=== PATIENT | female | born 1955 | race Caucasian/White ===

== ENCOUNTER 2020-05-06 09:16 | Outpatient (REF) | payer MEDICAID, SELFPAY ==
--- NOTE | ~2020-05-06 | MM_ITS ---
EXAMINATION: MM SCREENING DIGITAL BREAST TOMOSYNTHESIS, BILATERAL CLINICAL INFORMATION: Screening. Asymptomatic. The lifetime risk of breast cancer based on the Tyrer-Cuzick Model is 3%. COMPARISON: Mammography: 03/19/2019, 10/30/2017, 09/25/2016 TECHNIQUE: Digital breast tomosynthesis is performed in both the craniocaudal and mediolateral oblique views along with computer-aided detection (CAD). Synthesized 2D images are generated from the tomosynthesis. FINDINGS: There are scattered areas of fibroglandular density (ACR BI-RADS breast composition Category b). There are no significant masses, abnormal calcifications, or other abnormalities. There are punctate grouped dermal calcifications again noted posterior 6:30 o'clock left breast. MM/MM tomosynthesis screening BI IMPRESSION: No mammographic evidence of malignancy. ASSESSMENT: BI-RADS 2: Benign RECOMMENDATION: Routine annual mammography screening. This patient's information was entered into a reminder system with a target due date for their next mammogram.
== END 2020-05-06 09:17 | disposition home or self-care (01) ==
LOC: HO.MAMMO 09:16
PROVIDERS: Visit Provider Pediatrics
DX: Z12.31 Encounter for screening mammogram for malignant neoplasm of breast (principal)
CPT/HCPCS: 77063; 77067

== ENCOUNTER 2021-05-09 08:59 | Outpatient (REF) | payer MEDICAID, SELFPAY ==
--- NOTE | ~2021-05-09 | MM_ITS ---
EXAMINATION: MM SCREENING DIGITAL BREAST TOMOSYNTHESIS, BILATERAL CLINICAL INFORMATION: Screening. Asymptomatic. The lifetime risk of breast cancer based on the Tyrer-Cuzick Model is 5%. COMPARISON: Mammography: 05/06/2020, 03/19/2019, 10/30/2017 TECHNIQUE: Digital breast tomosynthesis is performed in both the craniocaudal and mediolateral oblique views along with computer-aided detection (CAD). Synthesized 2D images are generated from the tomosynthesis. Additional right MLO view is provided. FINDINGS: There are scattered areas of fibroglandular density (ACR BI-RADS breast composition Category b). The right breast has a circumscribed nodule posterior 9:00 position 8-9 cm from nipple measuring just under 5 mm, representing change from prior studies. Patient will be recalled for additional characterization with targeted ultrasound. The remainder of the breasts show no significant mass or architectural abnormality or abnormal calcifications. There are grouped dermal calcifications again seen posterior 6:30 left breast. MM/MM tomosynthesis screening BI IMPRESSION: 1. Right: Circumscribed nodule posterior 9:00 position just under 5 mm, possibly a cyst. 2. Left: No mammographic evidence of malignancy. ASSESSMENT: BI-RADS 0: Incomplete - Need Additional Imaging Evaluation RECOMMENDATION: 1. Targeted ultrasound right breast. 2. Radiology department staff will contact the patient for additional imaging. This patient's information was entered into a reminder system with a target due date for their next mammogram.
== END 2021-05-09 09:00 | disposition home or self-care (01) ==
LOC: HO.MAMMO 08:59
PROVIDERS: PCP Pediatrics; Visit Provider Pediatrics
DX: Z12.31 Encounter for screening mammogram for malignant neoplasm of breast (principal)
CPT/HCPCS: 77063; 77067

== ENCOUNTER 2021-05-14 13:01 | Outpatient (REF) | payer MEDICAID, SELFPAY ==
--- NOTE | ~2021-05-14 | US_ITS ---
EXAMINATION: US DIAGNOSTIC ULTRASOUND BREAST, RIGHT CLINICAL INFORMATION: Recall from screening for circumscribed nodule posterior 9:00 position under 5 mm, possibly a cyst. COMPARISON: Mammography 05/09/2021, 05/06/2020, 03/19/2019. TECHNIQUE: Ultrasound right breast is targeted to the outer breast using grayscale imaging and color Doppler without and with harmonics. FINDINGS: There is a circumscribed anechoic nodule 9:00 position 6 cm from nipple measuring under 5 mm. There is no increased or decreased through transmission of sound and no associated color flow. This likely represents finding on mammography. Results are discussed with the patient at time of visit, using an diplomatic interpreter. Management plan is for short interval follow-up right mammography in 6 months. Ultrasound may be performed as needed at that visit. US/US breast RT limited IMPRESSION: Circumscribed avascular anechoic nodule under 5 mm 9:00 position. No posterior acoustic enhancement. ASSESSMENT: BI-RADS 3: Probably Benign RECOMMENDATION: Diagnostic right mammography in 6 months. This patient's information was entered into a reminder system with a target due date for their next mammogram.
== END 2021-05-14 13:02 | disposition home or self-care (01) ==
LOC: HO.MAMMO 13:01
PROVIDERS: PCP Pediatrics; Visit Provider Pediatrics
DX: N63.15 Unspecified lump in the right breast, overlapping quadrants (principal)
CPT/HCPCS: 76642

== ENCOUNTER 2021-08-30 | Outpatient (REF) | payer MEDICAID, SELFPAY ==
[2021-09-01 14:11] LABS: H Pylori Breath Test Negative (Negative)
== END 2021-08-30 00:01 | disposition home or self-care (01) ==
LOC: HO.LNP
PROVIDERS: Visit Provider Nurse Practitioner Family
DX: K59.04 Chronic idiopathic constipation (principal); K21.9 Gastro-esophageal reflux disease without esophagitis; R19.7 Diarrhea, unspecified; E55.9 Vitamin D deficiency, unspecified; Z11.0 Encounter for screening for intestinal infectious diseases
CPT/HCPCS: 83013; 99202

== ENCOUNTER 2021-08-31 11:20 | Outpatient (REF) | payer MEDICAID, SELFPAY | END 2021-08-31 11:21 | disposition home or self-care (01) | LOC: HO.LNP 11:20 | PROVIDERS: Visit Provider Nurse Practitioner Family | DX: Z13.89 Encounter for screening for other disorder (principal) ==

== ENCOUNTER 2021-12-06 13:41 | Outpatient (REF) | payer MEDICAID, SELFPAY ==
--- NOTE | ~2021-12-06 | MM_ITS ---
EXAMINATION: MM DIAGNOSTIC DIGITAL BREAST TOMOSYNTHESIS, RIGHT US DIAGNOSTIC ULTRASOUND BREAST, RIGHT CLINICAL INFORMATION: Short interval six-month follow-up probable benign circumscribed nodule posterior 9:00 right breast. TC score 5%. COMPARISON: Mammography: 05/09/2021, 05/06/2020, 03/19/2019 TECHNIQUE: Digital breast tomosynthesis is performed in both the craniocaudal and mediolateral oblique views along with computer-aided detection (CAD). Synthesized 2D images are generated from the tomosynthesis. Ultrasound right breast is targeted to the outer breast using grayscale imaging and color Doppler without and with harmonics. FINDINGS: There are scattered areas of fibroglandular density (ACR BI-RADS breast composition Category b). Circumscribed nodule posterior 9:00 position again demonstrated. No spiculation or significant change in size. Remainder of right breast is unremarkable. No significant changes from prior diagnostic exam. Ultrasound demonstrates an incidental intramammary node posterior 9:00 position 8 cm from nipple measuring 0.5 cm. This shows normal sravan architecture and color flow and may represent the finding on mammography. There is also a 0.4 cm circumscribed cystic nodule 9:00 position in this area with increased through-transmission of sound and no color flow. No suspicious finding on ultrasound. Results are discussed with the patient at time of visit. MM/MM tomosynthesis diagnostic RT IMPRESSION: -Benign-appearing nodule posterior 9:00 position, without significant change from prior diagnostic exam. -Ultrasound shows benign intramammary node near this area as well as a small cyst. ASSESSMENT: BI-RADS 3: Probably Benign RECOMMENDATION: Diagnostic mammography at time of annual bilateral mammography, due in in 6 months. This patient's information was entered into a reminder system with a target due date for their next mammogram.
== END 2021-12-06 13:42 | disposition home or self-care (01) ==
LOC: HO.MAMMO 13:41
PROVIDERS: Visit Provider Pediatrics
DX: N63.15 Unspecified lump in the right breast, overlapping quadrants (principal)
CPT/HCPCS: 76642; 77061; 77065

== ENCOUNTER 2022-07-02 13:52 | Outpatient (REF) | payer OTHER, MEDICAID, SELFPAY ==
--- NOTE | ~2022-07-02 | MM_ITS ---
EXAMINATION: MM DIAGNOSTIC DIGITAL BREAST TOMOSYNTHESIS, BILATERAL CLINICAL INFORMATION: Due for yearly. Also follow-up probable benign circumscribed nodule posterior 9:00 right breast. Intramammary node and a small cyst noted on prior ultrasound. TC score 4%. COMPARISON: Mammography: 12/06/2021, 05/09/2021 (BI-RADS humeral 0), 05/06/2020, 03/19/2019; ultrasound right breast 05/14/2021, 09/05/2021. TECHNIQUE: Digital breast tomosynthesis is performed in both the craniocaudal and mediolateral oblique views along with computer-aided detection (CAD). Synthesized 2D images are generated from the tomosynthesis. FINDINGS: There are scattered areas of fibroglandular density (ACR BI-RADS breast composition Category b). There is no developing density or interval mass or architectural abnormality or abnormal calcifications. The circumscribed nodule posterior 9:00 right breast is similar to prior exam and will be reassessed again in 6 months with diagnostic right mammography, ultrasound if warranted at that time. The left breast again has tightly grouped dermal calcifications posterior 6:00 position. The bilateral axilla and skin contours are unremarkable. Results are provided to the patient at time of visit by the technologist. MM/MM tomosynthesis diagnostic BI IMPRESSION: Right: -Benign-appearing circumscribed nodule posterior 9:00 position stable from prior exam. Left: -No mammographic evidence of malignancy. ASSESSMENT: BI-RADS 3: Probably Benign RECOMMENDATION: Diagnostic right mammography in 6 months. This patient's information was entered into a reminder system with a target due date for their next mammogram.
== END 2022-07-02 13:53 | disposition home or self-care (01) ==
LOC: HO.MAMMO 13:52
PROVIDERS: PCP Pediatrics; Visit Provider Pediatrics
DX: N63.15 Unspecified lump in the right breast, overlapping quadrants (principal)
CPT/HCPCS: 77062; 77066

== ENCOUNTER 2022-11-09 16:28 | Emergency (ER) | payer OTHER, MEDICAID, SELFPAY ==
--- NOTE | ~2022-11-09 | XR_ITS ---
EXAMINATION: XR CHEST CLINICAL INFORMATION: Injury COMPARISON: 10/13/2018 TECHNIQUE: 2 views of the chest were obtained. FINDINGS: Lung volumes are symmetric. No focal consolidation is seen. No evidence of pneumothorax, pleural effusion, or pulmonary edema. The cardiomediastinal contour is unremarkable. No acute osseous findings are seen. XR/XR chest 2V IMPRESSION: No acute cardiopulmonary findings.
[2022-11-09 16:35] VITALS: BP 130/70; PULSE 64; O2SAT 99
[2022-11-09 17:55] VITALS: BP 196/74; PULSE 70; RESP 18; TEMP 36.3; O2SAT 98; BMI 27.3
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
== END 2022-11-09 22:12 | disposition home or self-care (01) ==
PROVIDERS: Emergency Provider Emergency Medicine
DX: S20.212A Contusion of left front wall of thorax, initial encounter (principal); S50.811A Abrasion of right forearm, initial encounter; S40.021A Contusion of right upper arm, initial encounter; Y04.2XXA Assault by strike against or bumped into by another person, initial encounter; Y93.9 Activity, unspecified; Y92.9 Unspecified place or not applicable; Y99.9 Unspecified external cause status
CPT/HCPCS: 71046; 99282; 99283

== ENCOUNTER 2022-12-26 14:03 | Outpatient (REF) | payer OTHER, MEDICAID, SELFPAY ==
[2022-12-26 17:40] LABS: Urine Cytology See Pathology rpt
[2022-12-26 17:42] LABS: MANUAL DIFF FLAG NO
[2022-12-26 17:43] LABS: Appearance Urine Clear; Color Urine Yellow; Glucose Urine UA Negative (Negative); Leukocyte Esterase Urine Small (1+) (Negative); Nitrite Urine Negative (Negative); Specific Gravity - Urine 1.025 (1.005-1.025); UMIC TRIGGER UA YES; Urine Blood Negative (Negative); Urine Ketones Negative (Negative); Urine Protein Negative (Neg-Trace)
[2022-12-26 17:54] LABS: Basophils Absolute Auto 0.1 X10*3/uL (0.0-0.2); Eosinophils Absolute Auto 0.4 X10*3/uL (0.0-0.4); Eosinophils Percent Auto 5.4 % (0-4); Hemoglobin 14.4 g/dl (12.0-16.0); Imm Gran Abs Auto 0.01 X10*3/uL (0.00-0.03); Imm Gran Pct Auto 0.1 % (0.0-0.4); Lymphocytes Absolute Auto 1.8 X10*3/uL (1.2-4.9); Lymphocytes Percent Auto 24.7 % (20-40); Mean Corpuscular HGB Conc 32.7 g/dl (31.0-35.0); Mean Corpuscular Volume 94.6 fL (80.0-98.0); Mean Platelet Volume 10.8 fL (9.4-12.3); Monocytes Absolute Auto 0.5 X10*3/uL (0.1-1.2); Monocytes Percent Auto 6.3 % (2-11); Neutrophils Absolute Auto 4.5 x10*3/uL (2.0-8.3); Neutrophils Percent Auto 62.5 % (45-73); Platelet Count 356 X10*3/uL (160-400); Red Blood Count 4.65 X10*6/uL (4.20-5.50); White Blood Count 7.2 X10*3/uL (4.8-10.8)
[2022-12-26 17:58] LABS: Bacteria Urine Trace (None Seen); Hyaline Casts Urine 0-2 /LPF (0-2); RBC Urine 0-2 /HPF (0-2); WBC Urine 0-5 /HPF (0-5)
[2022-12-26 18:03] LABS: Alanine Aminotransferase 11 U/L (0-31); Albumin Level 4.4 g/dL (3.5-5.0); Alkaline Phosphatase 81 U/L (39-117); Anion Gap 14 (12-20); Aspartate Amino Transferase 18 U/L (5-31); Bilirubin Direct 0.2 mg/dL (0.0-0.5); Bilirubin Total 0.6 mg/dL (0.0-1.0); Blood Urea Nitrogen 13 mg/dL (9-16); Calcium 9.6 mg/dL (8.4-10.2); Carbon Dioxide 28 mmol/L (22-29); Chloride 103 mmol/L (96-108); Cholesterol 216 mg/dL (<200); Estimated Glomerular Filt Rate > 60; Glucose Random 78 mg/dL (60-115); HDL Cholesterol 44 mg/dL (>40); LDL Cholesterol Calculated 151 mg/dL (<100); Potassium 4.1 mmol/L (3.3-5.1); Sodium 141 mmol/L (135-145); Total Protein 7.4 g/dL (6.5-8.0); Triglycerides 108 mg/dL (<150)
[2022-12-26 18:19] LABS: TSH reflex Free T4 0.45 uIU/mL (0.32-4.0); Vitamin D 25-OH Total 36.7 ng/mL (>30)
== END 2022-12-26 14:04 | disposition home or self-care (01) ==
LOC: HO.CHCLDS 14:03
PROVIDERS: Visit Provider Pediatrics
DX: F11.20 Opioid dependence, uncomplicated (principal); F33.1 Major depressive disorder, recurrent, moderate; E55.9 Vitamin D deficiency, unspecified; R63.4 Abnormal weight loss; N39.44 Nocturnal enuresis; E78.00 Pure hypercholesterolemia, unspecified
CPT/HCPCS: 36415; 80048; 80061; 80076; 81001; 82306; 84443; 85025; 88112

== ENCOUNTER 2023-01-07 10:45 | Outpatient (REF) | payer OTHER, SELFPAY ==
--- NOTE | ~2023-01-07 | MM_ITS ---
EXAMINATION: MM DIAGNOSTIC DIGITAL BREAST TOMOSYNTHESIS, RIGHT CLINICAL INFORMATION: 6 month interval follow-up for probably benign circumscribed nodule posterior 9:00 right breast 8 cm from nipple, consistent with benign intramammary lymph node, and a small simple cyst seen on ultrasound at the 9:00 axis, 6 cm from the nipple. COMPARISON: Mammography: 07/02/2022, 12/06/2021, 05/09/2021, 05/06/2020. Ultrasound right breast 12/06/2021, and 05/14/2021. TECHNIQUE: Digital right breast tomosynthesis is performed in both the craniocaudal and mediolateral oblique views along with computer-aided detection (CAD). Synthesized 2D images are generated from the tomosynthesis. In addition a right full-field mediolateral view was obtained, and a full-field 3-D right exaggerated CC projection. FINDINGS: There are scattered areas of fibroglandular density (ACR BI-RADS breast composition Category b). The previously seen 5 mm nodule in the 9:00 axis of the right breast, posterior one third, is no longer evident and appears to have resolved. This likely represented the simple cyst at this location. There is a similar 5 mm lymph node in the far lateral slightly inferior right breast 8 cm from the nipple, without change and benign. Otherwise, there is no new suspicious mass, grouped calcifications, or developing region of architectural distortion. The parenchymal pattern is unchanged from prior exams. MM/MM tomosynthesis diagnostic RT IMPRESSION: No findings suspicious for malignancy right breast. Benign findings as detailed. Recommend the patient return to routine annual screening mammography. ASSESSMENT: BI-RADS BI-RADS 2 - Benign Findings RECOMMENDATION: 1 year F/U Results were provided to the patient at time of visit by the technologist. This patient's information was entered into a reminder system with a target due date for their next mammogram.
== END 2023-01-07 10:46 | disposition home or self-care (01) ==
LOC: HO.MAMMO 10:45
PROVIDERS: PCP Pediatrics; Visit Provider Pediatrics
DX: N63.15 Unspecified lump in the right breast, overlapping quadrants (principal)
CPT/HCPCS: 77061; 77065

== ENCOUNTER → 2023-01-07 11:30 | Outpatient (BNV) | payer OTHER, SELFPAY | PROVIDERS: PCP Pediatrics; Visit Provider Radiology Diagnostic Radiology | DX: N60.01 Solitary cyst of right breast (principal) | CPT/HCPCS: 77061; 77065 ==

== ENCOUNTER 2023-02-17 10:00 | Inpatient (IN) | payer OTHER, SELFPAY ==
[2023-02-17] VITALS (9 sets, daily range): BP systolic 97–134; BP diastolic 58–76; PULSE 54–102; RESP 13–20; TEMP 36.3–36.9; O2SAT 94–100; BMI 23.8
--- NOTE | ~2023-02-17 | XR_ITS ---
EXAMINATION: XR CHEST CLINICAL INFORMATION: Chest pain. Shortness of breath COMPARISON: Chest x-ray November 09, 2022, October 13, 2018 TECHNIQUE: Frontal portable view of the chest was obtained. 12:56 PM FINDINGS: No acute abnormality. No pulmonary vascular congestion. No focal consolidation or pleural effusion. Heart size is normal. Cardiac mediastinal contours are normal. Vascular calcifications of aorta. Multilevel degenerative spondylosis spine. XR/XR chest 1V IMPRESSION: Unremarkable examination.
--- NOTE | 2023-02-17 07:00 | CA_ITS ---
Transthoracic Echocardiogram Patient (Last, First, Middle): Cinthya Mcpherson, Gender: Female Date of : 1955 Age: 67 Procedure Date: 02/17/2023 Procedure Type: Transthoracic Echocardiogram Location: ER Height: 157.48 cm Weight: 44. kg BSA: 1.41 m2 Heart Rate: bpm BP: 107 / 69 mmHg Ice Grinder: STEPHON Referring MD: Billie DEE Desktop Support Consultant: Neo Durham MD Symptoms: nstemi Study Quality: Adequate with contrast ECG Rhythm: Sinus Conclusions: - 1. Mildly reduced LV ejection fraction 45-50% with multiple mid ventricular wall motion abnormality that could represent variant of stress-induced cardiomyopathy with pseudonormal filling pattern 2. Normal cardiac valvular Dopplers 3. Upper limits of normal RV systolic pressure with mildly elevated right atrial pressures 4. No gross pericardial effusion Findings Procedure Information Contrast agent, definity, is being given per protocol without apparent complications. Left Ventricle Normal left ventricular cavity size. There is normal left ventricular wall thickness. The left ventricular systolic function is mildly decreased. The visually estimated ejection fraction is between 45-50%. There is evidence of regional wall motion abnormalities. Spectral Doppler is indicative of a pseudonormal filling pattern. E/E prime ratio is between 8 and 15 consistent with indeterminate filling pressures. Wall Motion Rest Echo Findings The mid inferior, mid anterolateral, mid inferoseptal, mid anteroseptal, and mid inferolateral segments are hypokinetic. All other scored wall segments showed normal motion. Right Ventricle Normal right ventricular cavity size and systolic function. Atria The left atrium is normal in size. Interatrial shunt cannot be excluded. The right atrium is normal in size. Aortic Valve There is mild calcification of the aortic valve. There is no aortic valve stenosis. There is no aortic valve regurgitation. Mitral Valve Likely normal mitral valve structure and function. There is trace mitral valve regurgitation. There is no mitral valve stenosis. Pulmonic Valve The pulmonic valve is likely normal. Tricuspid Valve Normal tricuspid valve structure. There is mild tricuspid valve regurgitation. Mildly elevated right atrial pressure. There is no evidence of pulmonary hypertension. Great Vessels The aorta was not well visualized. The pulmonary artery was not well visualized. Venous The inferior vena cava is mildly dilated and collapses greater than 50% with inspiration. Pericardium/Pleural There is no evidence of pericardial effusion. Prior Study Comparison No prior study available for comparison. Measurements 2D Linear Measurements IVSd: 0.94 0.6-0.9/0.6-1.0 cm LVIDd: 4.07 3.9-5.3/4.2-5.9 cm LVIDd Index: 2.89 2.4-3.2/2.2-3.1 cm/m2 LVIDs: 2.99 2.0-3.6 cm LVPWd: 0.94 0.7-1.1 cm LA Diam: 2.40 2.7-3.8/3.0-4.0 cm LAIDs Index: 1.70 1.5-2.3 cm/m2 LV Mass: 148.73 67-162/88-224 g LV Mass Index: 105.49 43-95/49-115 g/m2 LVOT Diam: 1.70 3.0+(-)1.3 cm 2D Systolic Function EF 4C: 49.30 >55% EF 2C: 49.70 >55% EF BiP: 50.70 >55% Mitral Valve MV Pk E: 0.98 MV PK A: 0.46 MV Decel Time: 191.00 E/A: 2.10 E'Lateral: 8.05 E'Medial: 7.40 E/E' Med: 13.30 E/E' Lat: 12.20 PHT: 56.00 MVA PHT: 3.93 Decel Trigg: 5.14 Aortic Valve AoV Pk Sly: 1.50 AoV Mn Sly: 0.93 AoV VTI: 0.34 AoV Pk Grad: 9.00 Aov Mn Grad: 4.00 MARIANNA Cont.VTI: 2.06 LVOT LVOT Pk Sly: 1.36 LVOT Mn Sly: 0.84 LVOT VTI: 0.31 LVOT Pk Grad: 7.00 LVOT Mn Grad: 3.00 LVOT Diam: 1.70 LVOT Area: 2.27 Diastolic Function MV Pk E: 0.98 MV Pk A: 0.46 E/A: 2.10 E'Medial: 7.40 E/E' Med: 13.30 E' Laterial: 8.05 E/E' Lat: 12.20 Right Ventricle TAPSE (mm): 26.40 TVS' Lsy: 11.50 Tricuspid Valve TR Pk Sly: 2.77 TR Pk Grad: 31.00 RA Press: 3.00 RVSP: 39.00 Great Vessels Aorta Sinus of Valsalva: 2.74 2.0-3.[address] Ridge: 1.73 1.7-3.4 cm Updated in Other Vendor System with Status of Final Neo Durham MD electronically signed on 02/17/2023 5:38:23 PM with status of Final
--- NOTE | 2023-02-17 10:02 | ECG_ITS ---
Test Reason : chest pain Blood Pressure : / mmHG Vent. Rate : 059 BPM Atrial Rate : 059 BPM P-R Int : 128 ms QRS Dur : 072 ms QT Int : 448 ms P-R-T Axes : 073 035 035 degrees QTc Int : 443 ms Sinus bradycardia with Premature supraventricular complexes Possible Left atrial enlargement Borderline ECG No previous ECGs available Referred By: Generic ED Physician Electronically Signed By:PATRICK MARISCAL MD
[2023-02-17 10:54] LABS: MANUAL DIFF FLAG NO
[2023-02-17 10:56] LABS: Basophils Absolute Auto 0.1 X10*3/uL (0.0-0.2); Basophils Percent Auto 0.7 % (0-2); Eosinophils Absolute Auto 0.2 X10*3/uL (0.0-0.4); Eosinophils Percent Auto 1.8 % (0-4); Hemoglobin 14.8 g/dl (12.0-16.0); Imm Gran Abs Auto 0.04 X10*3/uL (0.00-0.03); Imm Gran Pct Auto 0.3 % (0.0-0.4); Lymphocytes Absolute Auto 1.2 X10*3/uL (1.2-4.9); Lymphocytes Percent Auto 9.9 % (20-40); Mean Corpuscular HGB Conc 32.9 g/dl (31.0-35.0); Mean Corpuscular Hemoglobin 30.9 pg (27.0-33.0); Mean Corpuscular Volume 93.9 fL (80.0-98.0); Mean Platelet Volume 9.7 fL (9.4-12.3); Monocytes Absolute Auto 0.7 X10*3/uL (0.1-1.2); Monocytes Percent Auto 5.5 % (2-11); Neutrophils Absolute Auto 9.8 x10*3/uL (2.0-8.3); Neutrophils Percent Auto 81.8 % (45-73); Platelet Count 286 X10*3/uL (160-400); Red Blood Count 4.79 X10*6/uL (4.20-5.50); Red Cell Distribution Width 13.2 % (11.0-16.0)
[2023-02-17 11:13] LABS: Anion Gap 12 (12-20); Blood Urea Nitrogen 16 mg/dL (9-16); Calcium 9.2 mg/dL (8.4-10.2); Carbon Dioxide 25 mmol/L (22-29); Chloride 106 mmol/L (96-108); Creatinine Clr Calc Pharmacy 59.9; Estimated Glomerular Filt Rate > 60; Glucose Random 94 mg/dL (60-115); Potassium 4.2 mmol/L (3.3-5.1); Sodium 139 mmol/L (135-145)
[2023-02-17 11:25] LABS: Troponin-I High Sensitivity 158.5 ng/L (<3.5-17.0)
[2023-02-17 11:53] LABS: Influenza A PCR NEGATIVE (Negative); Influenza B PCR NEGATIVE (Negative); Resp Syncy Virus RNA Qual PCR NEGATIVE (Negative); SARS COV2 PCR INHOUSE NEGATIVE (Negative)
--- NOTE | 2023-02-17 12:53 | ED_ITS ---
HPI - Chest Pain General Chief Complaint: Chest Pain Stated Complaint: CP,SOB 97% RA,ASA GIVEN FROM CLINIC PER EMS Time Seen by Provider: 02/17/23 12:52 History of Present Illness HPI narrative: 67 y/o F patient; PMH GERD, asthma, active nicotine use, suboxone, HTN; presents from clinic with reported sudden onset dyspnea associated with non-radiating central chest pain that worsened with exertion. The patient states she was dropped off by the bus at the bus stop when her symptoms began. While at the bus stop she experienced the symptoms which were so severe she dropped to the ground in the rain. She attempted to wave over pedestrians but no one stopped to help her. She crawled into the clinic where they notified 911 and provided the patient with ASA 324mg PO. The patient denies any prior history of similar severity of symptoms, but states that over the last few weeks she has had progressive dyspnea with walking her dog. Having to pause more and take fewer walks. She initially attributed these symptoms to her anxiety. She otherwise denies: headache, numbness/tingling, visual changes, neck pain, vomiting, abdominal pain, back pain. Patient is not followed by cardiology. Related Data Previous Rx's Medication Instructions Recorded sennosides 8.6 mg tablet (Natural 17.2 mg (2 x 8.6 mg) PO BEDTIME 08/30/21 Senna Laxative) constipation #60 tabs pantoprazole 40 mg tablet,delayed 40 mg PO DAILY #30 tabs 04/30/22 release lidocaine 4 % topical patch 1 patch topical DAILY PRN pain #10 11/09/22 ea Allergies Allergy/AdvReac Type Severity Reaction Status Date / Time clorox Allergy Unknown itchiness Uncoded 11/09/22 17:55 Review of Systems 2 Review of Systems: Yes all other systems are reviewed and are negative Neurologic: Denies Sensory deficit (Neuro) PMFSH Past Medical History Attestation statement: The following information was validated with the patient. Source: unable to obtain Medical History GERD (gastroesophageal reflux disease) Social History Social History Household Members: Other Patient Tobacco Use Status: Current everyday Tobacco user Cigarettes Per Day: 9 Advance Directives: No Advance Directives Information Provided: Yes Physical Exam 2 Vital Signs: Vital Signs: Last Vital Signs Temp 97.3 F 02/17/23 10:20 Pulse 67 02/17/23 12:22 Resp 16 02/17/23 12:22 BP 107/69 02/17/23 12:22 Pulse Ox 100 02/17/23 12:22 O2 Del Method Room Air 02/17/23 12:22 BMI result Body Mass Index 23.8 Patient is afebrile, hemodynamically stable. Const: General: cooperative and healthy appearing O rientation/consciousness: patient oriented x3 HEENT: Head: Yes normal to inspection and Yes atraumatic Ears: hearing grossly normal bilaterally, external ears normal and TM's normal bilaterally General nose exam: Normal external nose present and Normal nares present Face and sinus: Yes normal facial exam Eyes: General: appearance normal, both eyes and all related structures P upils: Equal, round and reactive pupils present EOM: EOMs intact bilaterally Neck: Neck: Yes full ROM, Yes supple and No tender Chest: Chest palpation & inspection: normal inspection of the chest and normal palpation of entire chest wall Resp: Effort & Inspection: normal respiratory effort, able to speak in complete sentences, no cough and no respiratory distress Auscultation: clear to auscultation bilaterally Cardio: Rate: regular rate Rhythm: regular rhythm Peripheral pulses: P eripheral pulses 2+ throughout GI: Inspection: Yes normal to inspection and No distended Palpation (GI): S oft to palpation, not firm and nontender Auscultation: normal bowel sounds Neuro: General: patient oriented x3 Cranial nerves: Yes CN's II-XII intact bilaterally and Yes Equal, round and reactive pupils present Cognition (Neuro): normal cognition Gait exam (Neuro): Normal gait present Motor exam (neuro): 5/5 motor strength present throughout Sensory Exam: No Sensory deficit (Neuro) Course Course Course Narrative: Patient is afebrile and hemodynamically stable. Reviewed triage work up - EKG non-ischemic. Troponin elevated, CBC and BMP unremarkable. COVID/Flu/RSV negative Reevaluation(s) Reevaluation #1: Added CXR, repeat troponin, LFTs, and lipase. Started on heparin drip for unstable angina. Patient reports mild continued chest pain, however states it is significantly improved from prior during incident. Family at bedside, all questions answered. Plan: Admit to hospitalist Condition: Stable Time: 13:22 Medical Decision Making Lab Data 02/17/23 10:48 02/17/23 10:48 Labs: Lab Results 02/17/23 Range/Units 10:48 WBC 12.0 H (4.8-10.8) X10*3/uL RBC 4.79 (4.20-5.50) X10*6/uL Hgb 14.8 (12.0-16.0) g/dl Hct 45.0 (37.0-47.0) % MCV 93.9 (80.0-98.0) fL MCH 30.9 (27.0-33.0) pg MCHC 32.9 (31.0-35.0) g/dl RDW 13.2 (11.0-16.0) % Plt Count 286 (160-400) X10*3/uL MPV 9.7 (9.4-12.3) fL Immature Gran % (Auto) 0.3 (0.0-0.4) % Neut % (Auto) 81.8 H (45-73) % Lymph % (Auto) 9.9 L (20-40) % [place] % (Auto) 5.5 (2-11) % Eos % (Auto) 1.8 (0-4) % Baso % (Auto) 0.7 (0-2) % Lymph # (Auto) 1.2 (1.2-4.9) X10*3/uL [place] # (Auto) 0.7 (0.1-1.2) X10*3/uL Eos # (Auto) 0.2 (0.0-0.4) X10*3/uL Baso # (Auto) 0.1 (0.0-0.2) X10*3/uL Abs Immat Gran (auto) 0.04 H (0.00-0.03) X10*3/uL Absolute Neuts (auto) 9.8 H (2.0-8.3) x10*3/uL Absolute Nucleated RBC 0.000 (0.0-0.012) X10*3/uL Nucleated RBC % (auto) 0.0 (0.0-0.2) /100WBC Sodium 139 (135-145) mmol/L Potassium 4.2 (3.3-5.1) mmol/L Chloride 106 (96-108) mmol/L Carbon Dioxide 25 (22-29) mmol/L Anion Gap 12 (12-20) BUN 16 (9-16) mg/dL Creatinine 0.74 (0.5-1.4) mg/dL Estim Creat Clear Calc 59.9 Estimated GFR > 60 Random Glucose 94 (60-115) mg/dL Calcium 9.2 (8.4-10.2) mg/dL Troponin I High Sens 158.5 H* (<3.5-17.0) ng/L Influenza Type A (PCR) NEGATIVE (Negative) Influenza Type B (PCR) NEGATIVE (Negative) RSV RNA Qual (PCR) NEGATIVE (Negative) SARS-CoV-2 RNA (RT-PCR) NEGATIVE (Negative) Discharge Plan Discharge Clinical Impression: Angina pectoris, unstable Patient Disposition: Admitted As Inpatient Prescriptions: No Action pantoprazole 40 mg tablet,delayed release (DR/EC) 40 mg PO DAILY Qty: 30 2RF Rx Instructions: take one tablet half an hour before breakfast lidocaine 4 % adhesive patch,medicated 1 patch topical DAILY PRN (Reason: pain) Qty: 10 0RF Rx Instructions: may leave on for up to 12 hrs sennosides [Natural Senna Laxative] 8.6 mg tablet 17.2 mg PO BEDTIME Qty: 60 3RF
[2023-02-17 13:38] LABS: Alanine Aminotransferase 17 U/L (0-31); Albumin Level 4.2 g/dL (3.5-5.0); Alkaline Phosphatase 71 U/L (39-117); Aspartate Amino Transferase 33 U/L (5-31); Bilirubin Direct 0.2 mg/dL (0.0-0.5); Bilirubin Total 0.7 mg/dL (0.0-1.0); Lipase 12 U/L (8-78); Total Protein 6.9 g/dL (6.5-8.0)
--- NOTE | 2023-02-17 13:53 | PC.NURSE ---
PT STATES THAT SHE WENT TO THE [facility] THIS AM AND FELL ON HER BENTLEY KNEES. PT DENIES HITTING HEAD/LOC. FAMILY AT BEDSIDE.
--- NOTE | 2023-02-17 13:54 | PC.NURSE ---
PT STATES THAT SHE TAKES SUBOXONE 8/2MG.
--- NOTE | 2023-02-17 14:02 | PC.NURSE ---
MOHAN BRUNSON AT BEDSIDE PT/FAMILY AWARE OF PLAN OF CARE.
[2023-02-17 14:19] LABS: Hematocrit 43.6 % (37.0-47.0); Hemoglobin 14.4 g/dl (12.0-16.0); Mean Platelet Volume 10.2 fL (9.4-12.3); Platelet Count 281 X10*3/uL (160-400); Red Blood Count 4.64 X10*6/uL (4.20-5.50); Red Cell Distribution Width 13.2 % (11.0-16.0)
[2023-02-17 14:24] LABS: INTERNATIONAL NORM RATIO 0.9 (0.9-1.1); Prothrombin Time 11.2 SEC (11.1-13.3)
[2023-02-17] MEDS: Heparin Sodium,Porcine 5,000 UNIT/ML VIAL 2700 UNIT IVPUSH (14:25)
[2023-02-17 14:27] LABS: PTT Heparin Drip 35.5 SEC (53-77.9)
[2023-02-17] MEDS: Heparin Sodium,Porcine/1/2NS 25,000 UNIT/250 ML IV.SOLN 5.33 UNIT IVCONT (14:33)
--- NOTE | 2023-02-17 14:38 | P.HPHOSP_ITS ---
History of Present Illness Date of Service: 02/17/23 Attending physician on admission: Brandon Manzano Chief Complaint: chest pain, campbell 67-year-old female with history of hypertension, depression, opioid dependence on Suboxone, history of polysubstance abuse in sustained remission (last use 30 years ago), and mild persistent asthma presented to the ED earlier today for evaluation dyspnea on exertion and chest pain. She states around 09:00, she was walking off of her bus in to a clinic and developed dyspnea on exertion and severe retrosternal chest pressure radiating to the left arm. Upon entering the clinic, she states that to requested help in her blood pressure was elevated and was recommended to come to the hospital via EMS. She was also given asa 324mg. She states chest pain did resolve prior to hospital arrival. She states today was the 1st time that she had chest pain but she has been experiencing intermittent dyspnea on exertion and lightheadedness ongoing for several weeks. She states that she does sometimes experience edema in the arms but none in the lower extremities and denies any weight gain. Instead she states that she has lost weight. She denies any ongoing losses substance use but does smoke 2 cigarettes on a daily basis (trying to quit, was previously smoking 1 pack per day for many years). No alcohol use. Denies any known history of cardiovascular disease but states her mother does have coronary artery disease. On arrival, vital signs stable, no hypertension or hypoxia. There is a mild leukocytosis of 11.0. PT/INR normal. PTT 35.3. Renal function and electrolyte levels within normal limits. Hepatic function normal. Initial troponin 158.5, repeat pending. BNP pending. Negative for COVID-19, influenza, RSV. Chest x- ray radiology read pending but does not appear to have any acute cardiopulmonary abnormalities including pulmonary edema or effusions. EKG shows sinus bradycardia, rate [address]/T-wave abnormality. In the ED, has been started on heparin drip per protocol. Review of Systems 2 Review of Systems: General: No fevers, malaise, unintentional weight loss HEENT: No blurred vision, diplopia Cardiovascular: +chest pain, +lightheadness. No palpitations, or leg edema Respiratory: +campbell. No shortness of breath at rest, orthopnea, pnd, wheezing, cough GI: No abdominal pain, nausea, vomiting, diarrhea : No dysuria, hematuria, increased urinary frequency MSK: No myalgia, back pain Neuro: +headaches. No weakness, paresthesias Skin: No rashes or lesions [facility] Medical History Asthma Polysubstance abuse Opioid dependence Hypertension GERD (gastroesophageal reflux disease) Social History Household Members: Other Patient Tobacco Use Status: Current everyday Tobacco user Cigarettes Per Day: 9 Smoked in Last 30 Days: Yes Use of substances other than those prescribed or required for medical reasons: No Advance Directives: No Advance Directives Information Provided: Yes Meds Allergies Allergy/AdvReac Type Severity Reaction Status Date / Time clorox Allergy Unknown itchiness Uncoded 11/09/22 17:55 Active Medications: Current Medications Acetaminophen (Acetaminophen 325 Mg Tablet) 650 mg PO Q6H PRN PRN Reason: Pain, Mild (Pain Scale 1-3) Heparin Sodium (Porcine) (Heparin Sodium,Porcine 5,000 Unit/Ml Vial) 1,800 unit 40 unit/kg (1800 unit) IVPUSH PROTOCOL BOLUS PRN; Protocol PRN Reason: 40 unit/kg - Heparin Protocol Heparin Sodium (Porcine) (Heparin Sodium,Porcine 5,000 Unit/Ml Vial) 3,600 unit 80 unit/kg (3600 unit) IVPUSH PROTOCOL BOLUS PRN; Protocol PRN Reason: 80 unit/kg - Heparin Protocol Heparin Sodium/Sodium Chloride (Heparin Sodium,Porcine/1/2ns) 25,000 unit in 250 mls @ 0 mls/hr IVCONT .Q0M [facility]; Protocol Last Admin: 02/17/23 14:33 Dose: 12 units/kg/hr, 5.33 mls/hr Ondansetron HCl (Ondansetron Hcl 4 Mg/2 Ml Vial) 4 mg IVPUSH Q8H PRN PRN Reason: Nausea and Vomiting Senna (Sennosides 8.6 Mg Tablet) 17.2 mg PO BEDTIME PRN PRN Reason: Constipation Sodium Chloride (0.9 % Sodium Chloride Flush 3 Ml Syringe) 3 [facility] Medications Medication Instructions Recorded Confirmed Last Taken Type albuterol sulfate 2.5 mg/3 mL 2.5 mg inhalation TID PRN 02/17/23 02/17/23 Unknown History (0.083 %) solution for nebulization Shortness Of Breath atorvastatin 20 mg tablet 20 mg DAILY 02/17/23 Unknown History buprenorphine 8 mg-naloxone 2 mg 2 film sublingual DAILY 02/17/23 02/17/23 Unknown History sublingual film cholecalciferol (vitamin D3) 50 50 mcg DAILY 02/17/23 Unknown History mcg (2,000 unit) capsule citalopram 20 mg tablet 20 mg DAILY 02/17/23 Unknown History fluticasone propionate 110 2 puff inhalation BID 02/17/23 02/17/23 Unknown History mcg/actuation HFA aerosol inhaler (Flovent HFA) ibuprofen 800 mg tablet 800 mg PO Q8H PRN pain 02/17/23 Unknown History loratadine 10 mg tablet 10 mg QAM 02/17/23 Unknown History mirtazapine 7.5 mg tablet 7.5 mg BEDTIME 02/17/23 Unknown History Physical Exam 2 Vital Signs and Narrative: Vital Signs: Last Vital Signs Temp 97.3 F 02/17/23 10:20 Pulse 67 02/17/23 12:22 Resp 16 02/17/23 12:22 BP 107/69 02/17/23 12:22 Pulse Ox 100 02/17/23 12:22 O2 Del Method Room Air 02/17/23 12:22 BMI result Body Mass Index 23.8 Constitutional - Awake and Alert, No apparent distress Eyes - PERRLA, EOMI Cardiovascular - S1S2, RRR, No edema Respiratory - Normal lung expansion, Normal respiratory effort, No respiratory distress, CTA bilaterally Gastrointestinal - NT / ND; +BS; No rebound or guarding Extremities - no calf tenderness bilaterally, no swelling Skin - Warm/Dry Neurological - Alert & oriented x3 Psychological - Appropriate affect Results Labs 02/17/23 14:10 02/17/23 10:48 Labs: Laboratory Results - last 24 hr 02/17/23 02/17/23 10:48 14:10 MCV 93.9 94.0 MCH 30.9 31.0 MCHC 32.9 33.0 RDW 13.2 13.2 Plt Count 286 281 MPV 9.7 10.2 Immature Gran % (Auto) 0.3 Neut % (Auto) 81.8 H Lymph % (Auto) 9.9 L [place] % (Auto) 5.5 Eos % (Auto) 1.8 Baso % (Auto) 0.7 Lymph # (Auto) 1.2 [place] # (Auto) 0.7 Eos # (Auto) 0.2 Baso # (Auto) 0.1 Abs Immat Gran (auto) 0.04 H Absolute Neuts (auto) 9.8 H Absolute Nucleated RBC 0.000 0.000 Nucleated RBC % (auto) 0.0 0.0 PT 11.2 INR 0.9 aPTT Heparin Protocol 35.5 L Anion Gap 12 Estim Creat Clear Calc 59.9 Estimated GFR > 60 Random Glucose 94 Calcium 9.2 Total Bilirubin 0.7 Direct Bilirubin 0.2 AST 33 H ALT 17 Alkaline Phosphatase 71 Total Protein 6.9 Albumin 4.2 Lipase 12 Influenza Type A (PCR) NEGATIVE Influenza Type B (PCR) NEGATIVE RSV RNA Qual (PCR) NEGATIVE SARS-CoV-2 RNA (RT-PCR) NEGATIVE Assessment and Plan (1) NSTEMI (non-ST elevated myocardial infarction): Status: Acute Plan 67-year-old female with history of hypertension, depression, opioid dependence on Suboxone, history of polysubstance abuse in sustained remission (last use 30 years ago), and mild persistent asthma admitted for NSTEMI #Acute NSTEMI -Trop 158.5 -->1335.5. Repeat q6h until peak -EKG without ANGLE/depressions -Given asa 324mg at [facility] -Continue 81 mg aspirin daily -Heparin drip per protocol -check lipids, add atorvastatin 40mg daily -Check UTox. If neg for cocaine, add bb -Echo ordered -cardiac diet -cardiology consult #HTN -bp controlled -not on home antihypertensive # mood disorder -continue citalopram # opioid dependence -U tox pending -continue Suboxone # mild persistent asthma -no acute exacerbation -continue maintenance inhalers, albuterol p.r.n. # cigarette smoker -smoking cessation strongly encouraged -nicorette gum DVT prophylaxis-on heparin per protocol Full code Given patient's NSTEMI with significantly elevated troponins, patient requires inpatient stay at least 2 midnights for treatment with IV heparin ordered per protocol for anticoagulation and close cardiac monitoring and probable transfer to tertiary care facility for cardiac catheterization pending expert consultation and echocardiogram. Quality Stroke Does the patient have a stroke diagnosis?: No VTE Prior VTE?: No VTE Risk Level:: Medical - moderate - high VTE Device Contraindication: Treatment Not Indicated VTE Drug Contraindication: N/A - Med Ordered
[2023-02-17 14:51] LABS: Troponin-I High Sensitivity 1335.5 ng/L (<3.5-17.0)
[2023-02-17 15:07] LABS: Cholesterol 199 mg/dL (<200); HDL Cholesterol 59 mg/dL (>40); LDL Cholesterol Calculated 120 mg/dL (<100); Triglycerides 100 mg/dL (<150)
[2023-02-17 15:09] LABS: B Type Natriuretic Peptide 138 pg/mL (<100)
--- NOTE | 2023-02-17 17:33 | PHA.MEDREC ---
Pharmacy Consult ? Medication Reconciliation Pharmacy has completed the medication reconciliation. Patient reports only taking Suboxone at home. She reports not taking any of medication because it upsets her stomach. I spoke with LUIZ Wise and she is aware of medications; atorvatatin, citalopram, mirtazepine and pantoprazole. Salma Altamirano, CarolyneD
[2023-02-17] MEDS: Buprenorphine/Naloxone 8/2 mg FILM 2 FILM SUBLINGUAL (18:02)
--- NOTE | 2023-02-17 19:20 | PC.NURSE ---
This real estate underwriter assumed care of this Pt at 1900. Pt A&Ox4, denies any CP, reports SOB with exertion. Heparin drip running at 12 U/KG/Hr. Pt ambulating to bedside commode.
--- NOTE | 2023-02-17 20:15 | PC.NURSE ---
Assumed care of PT at 1500. PT alert and oriented, calm cooperative and in no acute distress. Informed PT urine sample needed. PT states she will ring call issa when she has to urinate. Heparin Drip currently running at 12 units. Medications administered as per MAY. Call issa within reach. Plan of care ongoing
[2023-02-17 20:19] LABS: Amphetamine Screen Urine Not Detected (Not Detect); Barbiturates, Urine Not Detected (Not Detect); Benzodiazepines Screen Urine Not Detected (Not Detect); Cannabinoid Screen Urine POSITIVE (Not Detect); Cocaine Screen Urine Not Detected (Not Detect); Fentanyl, urine Not Detected (Not Detect); Opiate Screen Urine Not Detected (Not Detect); Phencyclidine Screen Urine Not Detected (Not Detect)
[2023-02-17 20:21] LABS: PTT Heparin Drip 57.8 SEC (53-77.9)
[2023-02-17] MEDS: Fluticasone Propionate 100 MCG BLST.W.DEV 2 PUFF INHALE (20:33)
[2023-02-17 20:45] LABS: Troponin-I High Sensitivity 2119.1 ng/L (<3.5-17.0)
--- NOTE | 2023-02-17 20:50 | PC.NURSE ---
PTT 57.8, no rate change at this time per protocol.
[2023-02-17] MEDS: Metoprolol Tartrate 25 MG TABLET PO (22:35)
[2023-02-18] VITALS: BP 117/68; PULSE 52; RESP 20; TEMP 36.3; O2SAT 97
--- NOTE | 2023-02-18 00:56 | PC.NURSE ---
Report complete, Pt transported by mechanical technical service specialist and T/W to [facility].
[2023-02-18 03:10] VITALS: BP 114/65; PULSE 48; RESP 20; TEMP 36.3; O2SAT 96
[2023-02-18 07:39] VITALS: PULSE 53; RESP 16; O2SAT 95
[2023-02-18] MEDS: Fluticasone Propionate 100 MCG BLST.W.DEV 2 PUFF INHALE (07:39)
[2023-02-18 07:44] VITALS: BP 101/59; PULSE 51; RESP 16; TEMP 36.4; O2SAT 95
[2023-02-18] MEDS: Atorvastatin Calcium 40 MG TABLET PO (08:59)
[2023-02-18] MEDS: Buprenorphine/Naloxone 8/2 mg FILM 2 FILM SUBLINGUAL (08:59)
[2023-02-18] MEDS: Aspirin 81 MG TAB.CHEW PO (08:59)
[2023-02-18] MEDS: ondansetron HCL 4 MG/2 ML VIAL IVPUSH (09:00)
--- NOTE | 2023-02-18 10:43 | MHC.CM.PN ---
IMM 02/18. Pt SSO, lives alone at home with her dog, has [employer] services, [employer] will transport her home. Pt reports using a cane, and a walker. HCP declined at this time. PCP: Dr. Jacy Aldridge
[2023-02-18 10:49] LABS: Hematocrit 42.2 % (37.0-47.0); Hemoglobin 14.1 g/dl (12.0-16.0); Mean Corpuscular HGB Conc 33.4 g/dl (31.0-35.0); Mean Corpuscular Hemoglobin 30.9 pg (27.0-33.0); Mean Corpuscular Volume 92.3 fL (80.0-98.0); Platelet Count 245 X10*3/uL (160-400); Red Blood Count 4.57 X10*6/uL (4.20-5.50); Red Cell Distribution Width 13.2 % (11.0-16.0); White Blood Count 7.3 X10*3/uL (4.8-10.8)
[2023-02-18 10:56] LABS: Prothrombin Time 11.6 SEC (11.1-13.3)
[2023-02-18 10:59] LABS: PTT Heparin Drip 56.9 SEC (53-77.9)
[2023-02-18 11:01] VITALS: BP 107/55; PULSE 58; RESP 18; TEMP 36.7; O2SAT 93
[2023-02-18 11:02] LABS: Anion Gap 12 (12-20); Blood Urea Nitrogen 15 mg/dL (9-16); Calcium 9.2 mg/dL (8.4-10.2); Carbon Dioxide 26 mmol/L (22-29); Chloride 108 mmol/L (96-108); Creatinine Clr Calc Pharmacy 62.4; Estimated Glomerular Filt Rate > 60; Glucose Random 104 mg/dL (60-115); Potassium 4.3 mmol/L (3.3-5.1); Sodium 142 mmol/L (135-145)
[2023-02-18 11:21] LABS: Troponin-I High Sensitivity 683.9 ng/L (<3.5-17.0)
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
--- NOTE | 2023-02-18 12:03 | MHC.CM.PN ---
Pt is being medically transferred to [facility] for urgent cardiac catheterization.
== END 2023-02-18 15:08 | disposition short-term general hospital (02) | DRG 281 ==
LOC: HO.ED 13:31 → HO.EDOVER 14:39 → HO.IMC 23:51
PROVIDERS: Admitting Provider Physician Assistant; Emergency Provider Emergency Medicine; PCP Pediatrics; Visit Provider Hospitalist
DX: I21.4 Non-ST elevation (NSTEMI) myocardial infarction (principal); F11.20 Opioid dependence, uncomplicated; I10 Essential (primary) hypertension; J45.30 Mild persistent asthma, uncomplicated; F17.210 Nicotine dependence, cigarettes, uncomplicated; Z71.6 Tobacco abuse counseling; Z20.822 Contact with and (suspected) exposure to COVID-19; Z79.51 Long term (current) use of inhaled steroids; Z79.899 Other long term (current) drug therapy
CPT/HCPCS: 0241U; 36415; 71045; 80048; 80061; 80076; 80307; 83690; 83880; 84484; 85025; 85027; 85610; 85730; 93005; 93306; 94640; 99285; J1644; J2405; Q9957

== ENCOUNTER → 2023-02-17 10:02 | Outpatient (BNV) | payer OTHER, SELFPAY | PROVIDERS: Visit Provider Internal Medicine Cardiovascular Disease | DX: I49.49 Other premature depolarization (principal); I21.4 Non-ST elevation (NSTEMI) myocardial infarction | CPT/HCPCS: 93010; 93306 ==

== ENCOUNTER → 2023-02-17 14:34 | Outpatient (BNV) | payer OTHER, SELFPAY | PROVIDERS: Admitting Provider Physician Assistant; Emergency Provider Emergency Medicine; PCP Pediatrics; Visit Provider Internal Medicine Cardiovascular Disease | DX: I21.4 Non-ST elevation (NSTEMI) myocardial infarction (principal) | CPT/HCPCS: 99222 ==

== ENCOUNTER → 2023-02-17 14:34 | Outpatient (BNV) | payer OTHER, SELFPAY | PROVIDERS: Admitting Provider Physician Assistant; Emergency Provider Emergency Medicine; PCP Pediatrics; Visit Provider Physician Assistant | DX: I21.4 Non-ST elevation (NSTEMI) myocardial infarction (principal) | CPT/HCPCS: 99223; 99239 ==

== ENCOUNTER → 2023-02-19 23:59 | Outpatient (BNV) | payer OTHER, SELFPAY | PROVIDERS: PCP Pediatrics; Visit Provider Internal Medicine Cardiovascular Disease | DX: I21.4 Non-ST elevation (NSTEMI) myocardial infarction (principal) | CPT/HCPCS: 93458; 99152 ==

== ENCOUNTER 2023-04-25 09:07 | Outpatient (AMB) | payer OTHER, SELFPAY ==
[2023-04-25 09:19] VITALS: BP 130/62; PULSE 68; BMI 22.5
--- NOTE | 2023-04-25 09:19 | MHC.OFFVIS ---
Intake Vital Signs 04/25/23 09:19 Height 5 ft 2 in Weight 123 lb 0.287 oz BMI 22.5 BP 130/62 Blood Pressure Location Lt brachial Pulse 68 Pulse Source Pulse Oximeter Intake Visit Reasons: post Cath Allergies clorox Allergy (Unknown, Uncoded 11/09/22 17:55) itchiness Medication List - Last Reconciled 04/25/23 by Jacqui Castañeda, DATA ANALYTICS DEVELOPER-C aspirin 81 mg PO DAILY atorvastatin 40 mg PO DAILY buprenorphine-naloxone 8-2 mg 2 film sublingual DAILY citalopram 20 mg PO DAILY fluticasone propionate 110 mcg/actuation (Flovent HFA) 2 puffs inhalation BID HPI post Cath HPI Details Cinthya is a 68-year-old female who recently presented to [facility] with chest discomfort and shortness of breath. She ruled in for NSTEMI. An echocardiogram did show wall motion abnormality suggesting takotsubo cardiomyopathy. She was managed medically and transferred to [facility] where she underwent cardiac catheterization showing normal coronary arteries. Today she reports she has been doing well since her hospital discharge. She has not had any recurrent chest discomfort. She says her breathing is back to normal. No palpitations, lightheadedness, presyncope, syncope, PND, orthopnea or edema. She has been doing normal ADLs. Taking meds as directed. Son is present and he is assisting with Georgian translation at their request. Permit signed. [facility] Medical History (Updated 04/25/23 @ 11:17 by Jacqui Castañeda, DATA ANALYTICS DEVELOPER-C) Asthma Polysubstance abuse Opioid dependence Hypertension GERD (gastroesophageal reflux disease) Surgical History (Updated 04/25/23 @ 16:15 by Jacqui Castañeda, DATA ANALYTICS DEVELOPER-C) History of cardiac cath Social History Household Members: None Housing: Apartment Patient Tobacco Use Status: Former Tobacco user Cigarettes Per Day: 9 Substance Use Type: Marijuana service: No Review of Systems Const All systems reviewed & are unremarkable except as noted in HPI and below ENT Denies dizziness Card Denies chest pain, Denies chest pain at rest, Denies chest pain with activity, Denies rapid heart rate, Denies pedal edema, Denies edema, Denies leg edema, Denies lightheadedness, Denies palpitations, Denies dyspnea, Denies dyspnea on exertion and Denies orthopnea Resp Denies cough, Denies dyspnea and Denies dyspnea on exertion GI Denies hematochezia and Denies change in stool character Musc Denies abnormal gait, Denies limited range of motion, Denies muscle cramps, Denies muscle weakness, Denies numbness, Denies radiating pain into limb, Denies stiffness and Denies tingling Neuro Denies abnormal gait, Denies dizziness, Denies numbness and Denies tingling Endo Denies palpitations Physical Exam Vital Signs: Last Vital Signs Pulse 68 04/25/23 09:19 BP 130/62 04/25/23 09:19 BMI result Body Mass Index 22.5 Const General: cooperative, healthy appearing, comfortable and no acute distress Orientation/consciousness: patient oriented x3 Neck Neck: Yes normal visual inspection and Yes no JVD Carotids: normal carotid upstroke Chest Chest palpation & inspection: normal inspection of the chest Resp Effort & Inspection: normal respiratory effort Auscultation: clear to auscultation bilaterally, no rales, no rhonchi and no wheezes Cardio Jugular venous distension: no JVD Rate: regular rate Rhythm: regular rhythm Heart sounds: S1 normal heart sound present, S2 normal heart sound present, no gallops, no murmurs and no rubs Neuro General: patient oriented x3 Extrem General: Yes normal to inspection, No no pedal edema and No calf tenderness Psych Appearance: grossly normal Mental Status: mental status grossly normal Speech and movement: Normal speech and movement present Assessment & Plan Assessment & Plan (1) NSTEMI (non-ST elevated myocardial infarction): Code(s): I21.4 - Non-ST elevation (NSTEMI) myocardial infarction Plan: Recent [facility] evaluation for chest discomfort. She ruled in for NSTEMI. Troponin elevation up to 2118. EKG showed sinus bradycardia with PAC, no acute ST or T-wave abnormalities, rate 59. Echocardiogram showed EF 45-50%, multiple mid ventricular wall motion abnormalities that could represent a variant of stress-induced cardiomyopathy. She was managed medically for NSTEMI and transferred to [facility] where she underwent cardiac catheterization on 02/19/23 showing normal coronary arteries. This makes diagnosis of stress-induced cardiomyopathy most likely. She was discharged with aspirin and atorvastatin. Today she reports feeling well with no recurrent chest discomfort. Test results reviewed with her in detail. She does not appear fluid overloaded on examination. With finding stress cardiomyopathy will start on medication for neurohormonal modulation. Will add lisinopril 5 mg daily. BMP in 1 week. Will hold off on beta-manuel use as her resting heart rate typically is 50s to 60s. No indication for diuretics at this time. Will update limited echocardiogram to assess for EF and wall motion. Cardiology follow-up in 3 months, sooner if needed (2) Takotsubo cardiomyopathy: Code(s): I51.81 - Takotsubo syndrome Plan: As above (3) History of cardiac cath: Comment: 02/19/2023, normal coronary arteries Code(s): Z98.890 - Other specified postprocedural states Plan: Right radial catheterization site well healed (4) Hospital discharge follow-up: Code(s): Z09 - Encounter for follow-up examination after completed treatment for conditions other than malignant neoplasm Plan: [facility] discharge reviewed Plan Time spent on chart review, documentation, interview and assessment Orders: Orders CA echo limited Today I21.4 - Non-ST elevation (NSTEMI) myocardial infarction, I51.81 - Takotsubo syndrome Medications: New lisinopril 5 mg PO DAILY 30 tabs 3RF Coding Level of Care Code Est Pt Level 4 (68238) Diagnoses NSTEMI (non-ST elevated myocardial infarction) I21.4 Takotsubo cardiomyopathy I51.81 History of cardiac cath Z98.890 Hospital discharge follow-up Z09 Time Spent (min) 28
== END 2023-04-25 09:55 | disposition home or self-care (01) ==
PROVIDERS: PCP Pediatrics; Visit Provider Nurse Practitioner Family
DX: I21.4 Non-ST elevation (NSTEMI) myocardial infarction (principal); I51.81 Takotsubo syndrome; Z98.890 Other specified postprocedural states; Z09 Encounter for follow-up examination after completed treatment for conditions other than malignant neoplasm
CPT/HCPCS: 99214

== ENCOUNTER → 2023-04-25 09:07 | Outpatient (BNVA) | payer OTHER, SELFPAY | PROVIDERS: PCP Pediatrics; Visit Provider Nurse Practitioner Family | DX: Z09 Encounter for follow-up examination after completed treatment for conditions other than malignant neoplasm (principal); I21.4 Non-ST elevation (NSTEMI) myocardial infarction; I51.81 Takotsubo syndrome; Z98.890 Other specified postprocedural states | CPT/HCPCS: 99212 ==

== ENCOUNTER → 2023-05-23 12:52 | Outpatient (REF) | payer OTHER, SELFPAY ==
--- NOTE | 2023-05-23 12:56 | CA_ITS ---
Transthoracic Echocardiogram Patient (Last, First, Middle): Cinthya Mcpherson, Gender: Female Date of : 1955 Age: 68 Procedure Date: 05/23/2023 Procedure Type: Transthoracic Echocardiogram Location: OP Height: 165. cm Weight: 44. kg BSA: 1.45 m2 Heart Rate: bpm BP: 118 / 85 mmHg School Library Media Specialist: MURIEL Dempsey MD: Jacqui Castañeda PILLOWCASE FOLDER-C Symptoms: I21.4 - Non-ST elevation (NSTEMI) myocardial infarction Study Quality: Adequate Conclusions: - The left ventricular systolic function is normal. The calculated ejection fraction is 67% by biplane method. Findings Left Ventricle Normal left ventricular cavity size. The left ventricular systolic function is normal. The calculated ejection fraction is 67% by biplane method. There is no evidence of regional wall motion abnormalities. LV peak GLS -20.8%. Venous The inferior vena cava is normal in size and collapses greater than 50% with inspiration. Prior Study Comparison Changes noted compared to prior study dated: 02/17/2023. Improved wall motion/LVEF. Measurements 2D Linear Measurements IVSd: 0.89 0.6-0.9/0.6-1.0 cm LVIDd: 3.85 3.9-5.3/4.2-5.9 cm LVIDd Index: 2.66 2.4-3.2/2.2-3.1 cm/m2 LVIDs: 2.18 2.0-3.6 cm LVPWd: 0.81 0.7-1.1 cm LV Mass: 118.25 67-162/88-224 g LV Mass Index: 81.55 43-95/49-115 g/m2 LVOT Diam: 1.80 3.0+(-)1.3 cm 2D Systolic Function EF 4C: 62.60 >55% EF 2C: 70.70 >55% EF BiP: 67.00 >55% LVOT LVOT Pk Sly: 1.34 LVOT Mn Sly: 0.86 LVOT VTI: 0.27 LVOT Pk Grad: 7.00 LVOT Mn Grad: 3.00 LVOT Diam: 1.80 LVOT Area: 2.54 Tricuspid Valve RA Press: 3.00 Updated in Other Vendor System with Status of Final Lonnie Guerrero MD electronically signed on 05/25/2023 11:38:14 AM with status of Final
== END ==
LOC: HO.CARD 12:52
PROVIDERS: PCP Pediatrics; Visit Provider Nurse Practitioner Family
DX: I21.4 Non-ST elevation (NSTEMI) myocardial infarction (principal); I51.81 Takotsubo syndrome
CPT/HCPCS: 93308; 93356

== ENCOUNTER → 2023-05-23 12:56 | Outpatient (BNV) | payer OTHER, SELFPAY | PROVIDERS: PCP Pediatrics; Visit Provider Internal Medicine | DX: I21.4 Non-ST elevation (NSTEMI) myocardial infarction (principal) | CPT/HCPCS: 93308; 93356 ==

== ENCOUNTER 2023-07-07 09:06 | Outpatient (AMB) | payer OTHER, SELFPAY ==
[2023-07-07 09:32] VITALS: BP 120/72; PULSE 61; BMI 23.4
--- NOTE | 2023-07-07 09:32 | A.OFFVIS_ITS ---
Vital Signs 07/07/23 09:32 Height 5 ft 2 in Weight 127 lb 13.89 oz BMI 23.4 BP 120/72 Blood Pressure Location Lt brachial Position Sitting Pulse 61 Pulse Source Pulse Oximeter Intake Visit Reasons: 3 mnth f/up Real Estate Accountant Required: Yes Real Estate Accountant Language: Family Assessment Worker Name: dann parnell [id number] Caddy/Caddie Supervisor: Caddy/Caddie Supervisor Present Allergies clorox Allergy (Unknown, Uncoded 07/07/23 09:36) itchiness Medication List - Last Reconciled 07/07/23 by Jacqui Castañeda NP-C aspirin 81 mg PO DAILY atorvastatin 40 mg PO DAILY buprenorphine-naloxone 8-2 mg 2 film sublingual DAILY citalopram 20 mg PO DAILY fluticasone propionate 110 mcg/actuation (Flovent HFA) 2 puffs inhalation BID lisinopril 5 mg PO DAILY HPI HPI 3 mnth f/up: Details: Cinthya is a 68-year-old female who presented to [facility] last January with chest discomfort and shortness of breath. She ruled in for NS KELLY. An echocardiogram did show wall motion abnormality suggesting takotsubo cardiomyopathy. She was managed medically and transferred to [facility] where she underwent cardiac catheterization showing normal coronary arteries. A repeat limited echocardiogram was ordered and she now presents for follow-up. Today she reports she has been doing well since her last visit. She has not had any recurrent chest discomfort. She says her breathing normal. No palpitations, lightheadedness, presyncope, syncope, PND, orthopnea or edema. She has been doing normal ADLs. Taking meds as directed. Granddaughter is present and he is assisting with Urdu translation at their request. Permit signed. [facility] Medical History Asthma Polysubstance abuse Opioid dependence Hypertension GERD (gastroesophageal reflux disease) Surgical History History of cardiac cath Social History Household Members: None Housing: Apartment Patient Tobacco Use Status: Former Tobacco user Cigarettes Per Day: 9 Substance Use Type: Marijuana service: No Review of Systems Const All systems reviewed & are unremarkable except as noted in HPI and below ENT Denies dizziness Card Denies chest pain, Denies chest pain at rest, Denies chest pain with activity, Denies rapid heart rate, Denies pedal edema, Denies edema, Denies leg edema, Denies lightheadedness, Denies palpitations, Denies dyspnea, Denies dyspnea on exertion and Denies orthopnea Resp Denies cough, Denies dyspnea and Denies dyspnea on exertion GI Denies hematochezia and Denies change in stool character Musc Denies abnormal gait, Denies limited range of motion, Denies muscle cramps, Denies muscle weakness, Denies numbness, Denies radiating pain into limb, Denies stiffness and Denies tingling Neuro Denies abnormal gait, Denies dizziness, Denies numbness and Denies tingling Endo Denies palpitations Physical Exam Vital Signs: Last Vital Signs Pulse 61 07/07/23 09:32 BP 120/72 07/07/23 09:32 BMI result Body Mass Index 23.4 Const General: cooperative, healthy appearing, comfortable and no acute distress Orientation/consciousness: patient oriented x3 Neck Neck: Yes normal visual inspection and Yes no JVD Resp Effort & Inspection: normal respiratory effort Auscultation: clear to auscultation bilaterally, no crackles, no rales, no rhonchi and no wheezes Cardio Jugular venous distension: no JVD Rate: regular rate Rhythm: regular rhythm Heart sounds: S1 normal heart sound present, S2 normal heart sound present, no murmurs and no rubs Skin General skin exam: no rashes or lesions noted Neuro General: patient oriented x3 Extrem General: Yes normal to inspection and No no pedal edema Psych Appearance: grossly normal Mental Status: mental status grossly normal Speech and movement: Normal speech and movement present Assessment & Plan Assessment & Plan (1) NSTEMI (non-ST elevated myocardial infarction): Code(s): I21.4 - Non-ST elevation (NSTEMI) myocardial infarction Category: Medical Plan: [facility] evaluation for chest discomfor, 01/2023. She ruled in for NSTEMI. Troponin elevation up to 2118. EKG showed sinus bradycardia with PAC, no acute ST or T- wave abnormalities, rate 59. Echocardiogram showed EF 45-50%, multiple mid ventricular wall motion abnormalities that could represent a variant of stress- induced cardiomyopathy. She was managed medically for NSTEMI and transferred to [facility] where she underwent cardiac catheterization on 02/19/23 showing normal coronary arteries. This makes diagnosis of stress-induced cardiomyopathy most likely. She was discharged with aspirin and atorvastatin. On last visit lisinopril was added for neurohormonal modulation. A limited echocardiogram was done on 05/23/2023 showing EF 67%, no regional wall motion abnormalities. Reviewed the diagnosis of stress-induced cardiomyopathy with her. Will hold off on beta-manuel use as her resting heart rate typically is 50s to 60s. No indication for diuretics. Will plan for repeat echo in 1 year. Cardiology follow-up in 1 year, sooner if needed (2) Takotsubo cardiomyopathy: Code(s): I51.81 - Takotsubo syndrome Category: Medical Plan: As above (3) History of cardiac cath: Comment: 02/19/2023, normal coronary arteries Code(s): Z98.890 - Other specified postprocedural states Category: Surgical Plan: As above Plan Time spent on chart review, documentation, interview and assessment Orders: Orders CA echo transthoracic complete 11 Months I51.81 - Takotsubo syndrome Comprehensive Met. Panel Today I51.81 - Takotsubo syndrome Lipid Panel Today I21.4 - Non-ST elevation (NSTEMI) myocardial infarction, I51.81 - Takotsubo syndrome Coding Level of Care Code Est Pt Level 3 (15099) Diagnoses NSTEMI (non-ST elevated myocardial infarction) I21.4 Takotsubo cardiomyopathy I51.81 History of cardiac cath Z98.890 Time Spent (min) 24
== END 2023-07-07 10:12 | disposition home or self-care (01) ==
PROVIDERS: PCP Pediatrics; Visit Provider Nurse Practitioner Family
DX: I21.4 Non-ST elevation (NSTEMI) myocardial infarction (principal); I51.81 Takotsubo syndrome; Z98.890 Other specified postprocedural states
CPT/HCPCS: 99213

== ENCOUNTER 2023-07-07 09:06 | Outpatient (REF) | payer OTHER, SELFPAY ==
[2023-07-07 12:11] LABS: Alanine Aminotransferase 19 U/L (0-31); Albumin Level 4.4 g/dL (3.5-5.0); Alkaline Phosphatase 78 U/L (39-117); Anion Gap 14 (12-20); Aspartate Amino Transferase 23 U/L (5-31); Blood Urea Nitrogen 13 mg/dL (9-16); Calcium 9.9 mg/dL (8.4-10.2); Carbon Dioxide 27 mmol/L (22-29); Chloride 104 mmol/L (96-108); Cholesterol 142 mg/dL (<200); Estimated Glomerular Filt Rate > 60; Glucose Random 76 mg/dL (60-115); HDL Cholesterol 55 mg/dL (>40); LDL Cholesterol Calculated 76 mg/dL (<100); Potassium 4.8 mmol/L (3.3-5.1); Sodium 140 mmol/L (135-145); Total Protein 7.3 g/dL (6.5-8.0); Triglycerides 59 mg/dL (<150)
== END 2023-07-07 09:07 | disposition home or self-care (01) ==
LOC: HO.LAB 09:06
PROVIDERS: PCP Pediatrics; Visit Provider Nurse Practitioner Family
DX: I51.81 Takotsubo syndrome (principal); I21.4 Non-ST elevation (NSTEMI) myocardial infarction; Z98.890 Other specified postprocedural states
CPT/HCPCS: 36415; 80053; 80061; 99212

== ENCOUNTER 2023-09-03 11:37 | Outpatient (REF) | payer OTHER, SELFPAY | END 2023-09-03 11:38 | disposition home or self-care (01) | LOC: HO.MAMMO 11:37 | PROVIDERS: PCP Pediatrics; Visit Provider Pediatrics | DX: Z12.31 Encounter for screening mammogram for malignant neoplasm of breast (principal) | CPT/HCPCS: 77063; 77067 ==

== ENCOUNTER → 2023-09-03 11:45 | Outpatient (BNV) | payer OTHER, SELFPAY | PROVIDERS: PCP Pediatrics; Visit Provider Radiology Diagnostic Radiology | DX: Z12.31 Encounter for screening mammogram for malignant neoplasm of breast (principal) | CPT/HCPCS: 77063; 77067 ==

== ENCOUNTER 2024-05-26 11:25 | Outpatient (REF) | payer OTHER, SELFPAY ==
[2024-05-26 18:43] LABS: Bacterial Vaginosis PCR POSITIVE (Negative); Candida Group PCR NOT DETECTED (Not Detect); Candida glab krusei PCR NOT DETECTED (Not Detect); Trichomonas vaginalis PCR NOT DETECTED (Not Detect)
[2024-05-26 20:04] LABS: CT PCR NOT DETECTED (Not Detect.); NG PCR NOT DETECTED (Not Detect.)
== END 2024-05-26 11:26 | disposition home or self-care (01) ==
LOC: HO.LNP 11:25
PROVIDERS: Visit Provider Emergency Medicine
DX: N89.8 Other specified noninflammatory disorders of vagina (principal); R82.90 Unspecified abnormal findings in urine
CPT/HCPCS: 81515; 87086; 87088; 87186; 87491; 87591

== ENCOUNTER → 2024-06-01 13:00 | Outpatient (REF) | payer OTHER, SELFPAY ==
--- NOTE | 2024-06-01 13:02 | CA_ITS ---
Transthoracic Echocardiogram Patient (Last, First, Middle): Cinthya Tay, Gender: Female Date of : 1955 Age: 69 Procedure Date: 06/01/2024 Procedure Type: Transthoracic Echocardiogram Location: OP Height: 154.94 cm Weight: 45.36 kg BSA: 1.41 m2 Heart Rate: bpm BP: 160 / 84 mmHg Chemistry Technician: TO Referring MD: Jacqui Castañeda ERGONOMICS CONSULTANTLexus Symptoms: I51.81 - Takotsubo syndrome Study Quality: Adequate w contrast ECG Rhythm: Sinus Conclusions: - The left ventricular systolic function is normal. The calculated ejection fraction is 67% by biplane method. - No obvious valvular pathology seen on this study. Findings Procedure Information Contrast agent, definity, is being given per protocol without apparent complications. Left Ventricle Normal left ventricular cavity size. There is normal left ventricular wall thickness. The left ventricular systolic function is normal. The calculated ejection fraction is 67% by biplane method. There is no evidence of regional wall motion abnormalities. Diastolic function is normal for age. Right Ventricle Normal right ventricular cavity size and systolic function. Atria Both atria are normal in size. Aortic Valve The aortic valve was not well visualized. There is mild calcification of the aortic valve. There is no aortic valve stenosis. There is no aortic valve regurgitation. Mitral Valve There is mild mitral annular calcification. There is no mitral valve regurgitation. There is no mitral valve stenosis. Pulmonic Valve The pulmonic valve is likely normal. Tricuspid Valve There is trace tricuspid valve regurgitation. There is no evidence of pulmonary hypertension. Great Vessels The aorta was not well visualized. The sinuses of valsalva is normal in size. Small plaque is seen in the sino tubular ridge. Venous The inferior vena cava is normal in size and collapses greater than 50% with inspiration. Pericardium/Pleural There is no evidence of pericardial effusion. Prior Study Comparison No significant change compared to prior study dated: 05/23/2023. Recommendations, Care & Conclusions No obvious valvular pathology seen on this study. Measurements 2D Linear Measurements IVSd: 0.69 0.6-0.9/0.6-1.0 cm LVIDd: 4.14 3.9-5.3/4.2-5.9 cm LVIDd Index: 2.94 2.4-3.2/2.2-3.1 cm/m2 LVIDs: 2.65 2.0-3.6 cm LVPWd: 0.69 0.7-1.1 cm LA Diam: 3.10 2.7-3.8/3.0-4.0 cm LAIDs Index: 2.20 1.5-2.3 cm/m2 LV Mass: 100.56 67-162/88-224 g LV Mass Index: 71.32 43-95/49-115 g/m2 LVOT Diam: 1.80 3.0+(-)1.3 cm 2D Systolic Function EF 4C: 65.80 >55% EF 2C: 67.90 >55% EF BiP: 67.30 >55% Mitral Valve MV Pk E: 0.98 MV PK A: 0.55 MV Decel Time: 188.00 E/A: 1.80 E'Lateral: 10.10 E'Medial: 8.05 E/E' Med: 12.20 E/E' Lat: 9.70 PHT: 55.00 MVA PHT: 4.00 Decel Mckinley: 5.22 Aortic Valve AoV Pk Sly: 1.59 AoV Mn Sly: 1.09 AoV VTI: 0.37 AoV Pk Grad: 10.00 Aov Mn Grad: 5.00 MARIANNA Cont.VTI: 2.09 LVOT LVOT Pk Sly: 1.47 LVOT Mn Sly: 0.79 LVOT VTI: 0.30 LVOT Pk Grad: 9.00 LVOT Mn Grad: 3.00 LVOT Diam: 1.80 LVOT Area: 2.54 Diastolic Function MV Pk E: 0.98 MV Pk A: 0.55 E/A: 1.80 E'Medial: 8.05 E/E' Med: 12.20 E' Laterial: 10.10 E/E' Lat: 9.70 Right Ventricle TAPSE (mm): 21.60 TVS' Sly: 13.20 Tricuspid Valve TR Pk Sly: 2.33 TR Pk Grad: 22.00 RA Press: 3.00 RVSP: 25.00 Great Vessels Aorta Sinus of Valsalva: 2.79 2.0-3.5 cm Updated in Other Vendor System with Status of Final Lonnie Guerrero MD electronically signed on 06/03/2024 10:44:28 AM with status of Final
--- OUTSIDE RECORDS SUMMARY | 2024-06-01 15:14 | XMS_ITS | Encounter Summary ---
Author Organization [employer] [facility] Address [address] [place] [address] Care Team Providers Care Grinder Set Up Operator Internal Name Role Phone Jacy Aldridge MD Primary Care Provider [phone] Reason for Visit * Reason Onset Date Comments Nurse Triage 03/23/2024 Encounter Details Date Type Department Care Team ([facility] st Contact Info) Description 03/23/2024 Telephone [facility] MEDICINE [address] [place], [place] [phone] Jacy Aldridge MD [address] [place], [place] [phone] Nurse Triage Social History Tobacco Use Types Packs/Day Years Used Date Smoking Tobacco: Every Day Cigarettes Smokeless Tobacco: Never Comments:Smokes an average o f 2 cig a day. Used to smoke 1 ppd until last year. Depression Answer Date Recorded Patient Health Questionnaire-9 Score 2 05/07/2023 Patient Health Questionnaire-9 Score 2 05/07/2023 Last PHQ-9: Questionnaire Data Not on file 0 05/07/2023 Housing Stability Answer Date Recorded What is your housing situation today? I have olivia victor manuel 12/17/[address] you li ve. Do you have problems with any of the following? Mold 12/17/2022 Food Insecurity Answer Date Recorded Within the past 12 months, y ou worried that your food would run out before you got money to buy more: Never True 12/17/2022 Within the past 12 months,th e food you bought just didn't last and you didn't have enough money to get more: Never True Transportation Answer Date Recorded In the past 12 months, has l ack of transportation kept you from medical appts, meetings, work or from getting things needed for daily living? Yes, it has kept me from medical appointments or getting medications. 12/17/2022 Utilities Answer Date Recorded In the past 12 months, has t he electric, gas, oil or water company threatened to shut off services in your home? No 12/17/2022 Depression Answer Date Recorded Patient Health Questionnaire-2 Score 2 05/07/2023 Comments Unknown Sex and Gender Information Value Date Recorded Sex Assigned at Female 12/31/2021 10:16 AM EDT Legal Sex Female 10:16 AM EDT Gender Identity Female 12/31/2021 10:16 AM EDT Sexual Orientation Straight 12/31/2021 10 :16 AM EDT documented as of this encounter Miscellaneous Notes * Telephone Encounter - Adrianna Bui RN - 03/23/2024 5:03 PM EST Triage call with [facility] [place] [id number], [place]. Pt reports minor rectal bleeding yesterdaydue to constipation and hemorrhoids. Pt reports this happened 2x yesterday and no BM today. Pt denies abdominal pain, weakness. Pt does report that the constipation caused Pt to have to bear down to pass stool and that is what caused the irritation to the hemorrhoid. Pt is advised to come to [facility] today to be seen but, declines. Pt is given home care advice. Sitz bath instruction, increase liquidintake to 6 -8 glasses daily may be some prune juice. Pt reports eats fresh fruits and vegetables due to appetite is poor and that's all Pt likes. Pt is advised to call triage line if any further symptoms occur and Pt agrees. No further questions or concerns. Protocol Used: Rectal Bleeding (Adult) Protocol-Based Disposition: Home Care Video visit not offered Positive Triage Question: * Rectal bleeding is minimal (e.g., blood just on toilet paper, a few drops in toilet bowl) * All higher-acuity triage questions were negative Care Advice Discussed: * Reassurance and Education - Mild Rectal Bleeding * Warm Saline Sitz Baths - For Rectal Symptoms * Warm Saline Sitz Baths - How to Make a Sitz Bath * To Soften Stools and Treat Constipation * High Fiber Diet * Reasons To Call Back - Bleeding increases in amount - Bleeding occurs 3 or more times after using Care Advice - You become worse * Telephone Encounter - Carlos Guevara - 03/23/2024 4:19 PM EST Symptom: Stools - Blood Mixed In Outcome: Schedule a same-day appointment or talk to a nurse or provider today Reason: Just a small amount of blood and patient feels normal (acts normal) The caller accepted this outcome. Pt refused to go to ED after nurse recommended . documented in this encounter Plan of Treatment Upcoming Encounters Date Type Department Care Team (Late st Contact Info) Description 07/05/2024 9:45 AM EDT Office Visit [facility] MED & PEDS [address] [place] [address] Asim Sloan MD [address] [place] [address] 07/14/2024 10:30 AM EDT Office Visit [facility] MED & PEDS [address] [place] [address] Jacy Aldridge MD [address] [place] [address] documented as of this encounter Visit Diagnoses Not on filedocumented in this encounter Additional Health Concerns Assessment Noted Time PHQ-9 Depression Total Score: 2 05/07/19 24 11:32 AM EST documented as of this encounter Care Teams Grinder Set Up Operator Internal Relationship Specialty Start Date End Date Jacy Aldridge MD [address] [place] [address] PCP - General Family Medicine 01/22/16 documented as of this encounter
--- OUTSIDE RECORDS SUMMARY | 2024-06-01 15:14 | XMS_ITS | Encounter Summary ---
Author Organization [employer] [facility] Address [address] [place] [address] Care Team Providers Care Full Time Name Role Phone Jacy Aldridge MD Primary Care Provider [phone] Encounter Details Date Type Department Care Team (Late st Contact Info) Description 05/28/2024 Orders Only [facility] [address] [place], [place] [phone] Jake Fulton MD [address] [place], [place] [phone] Social History Tobacco Use Types Packs/Day Years [...] AM EDT documented as of this encounter Plan of Treatment Upcoming Encounters Date Type Department Care Team (Late st Contact Info) Description 07/05/2024 9:45 AM EDT Office Visit [facility] MED & PEDS [address] [place] [address] Asim Sloan MD [address] [place] [address] 07/14/2024 10:30 AM EDT Office Visit [facility] MED & PEDS [address] [place] [address] Jacy Aldridge MD [address] [place] [address] documented as of this encounter Visit Diagnoses Not on filedocumented in this encounter Additional Health Concerns Assessment Noted Time PHQ-9 Depression Total Score: 2 05/07/19 24 11:32 AM EST documented as of this encounter Care Teams Full Time Relationship Specialty Start Date End Date Jacy Aldridge MD [address] [place] [address] PCP - General Family Medicine 01/22/16 documented as of this encounter
--- OUTSIDE RECORDS SUMMARY | 2024-06-01 15:14 | XMS_ITS | Encounter Summary ---
Author Organization [employer] [facility] Address [address] [place] [address] [address]t [place] [address] Care Team Providers Care Reagent Tender Name Role Phone Jacy Aldridge MD Primary Care Provider [phone] Reason for Visit * Reason Comments Med Refill Encounter Details Date Type Department Care Team ([facility] Contact Info) Description 10/26/2022 Refill [facility] MEDICINE [address] [place] [phone] Jacy Aldridge MD [address] [place], [place] [phone] Social History Tobacco Use Types Packs/Day Years Used Date Smoking Tobacco: Every Day Cigarettes Smokeless Tobacco: Never Comments:Smokes an average o f 2 cig a day. Used to smoke 1 ppd until last year. Comments Unknown Sex and Gender Information Value Date Recorded Sex Assigned at Female 12/31/2021 10:16 AM EDT Legal Sex Female 10:16 AM EDT Gender Identity Female 12/31/2021 10:16 AM EDT Sexual Orientation Straight 12/31/2021 10 :16 AM EDT documented as of this encounter Plan of Treatment Upcoming Encounters Date Type Department Care Team ([facility] Contact Info) Description 07/05/2024 9:45 AM EDT Office Visit [facility] MED & PEDS [address] [place], [place] [phone] Asim Sloan MD [address] [place] [address] 07/14/2024 10:30 AM EDT Office Visit [facility] MED & PEDS [address] [place], [place] [phone] Jacy Aldridge MD [address] [place] [address] documented as of this encounter Visit Diagnoses Not on filedocumented in this encounter Care Teams Reagent Tender Relationship Specialty Start Date End Date Jacy Aldridge MD [address] [place] [address] PCP - General Family Medicine 01/22/16 documented as of this encounter
--- OUTSIDE RECORDS SUMMARY | 2024-06-01 15:14 | XMS_ITS | Encounter Summary ---
Author Organization [employer] [facility] Address [address] [place] [address] [address] [place] [address] Care Team Providers Care Agile Scrum Coach Name Role Phone Jacy Aldridge MD Primary Care Provider [phone] Reason for Visit * Reason Onset Date Comments Housing Assistance 09/30/2022 Encounter Details Date Type Department Care Team ([facility] Contact Info) Description 09/30/2022 Telephone [facility] MED & PEDS [address] [place], [place] [phone] Jacy Aldridge MD [address] [place], [place] [phone] Housing Assistance Social History Tobacco Use Types Packs/Day Years [...] Upcoming Encounters Date Type Department Care Team ([facility] Contact Info) Description 07/05/2024 9:45 AM EDT Office Visit [facility] MED & PEDS [address] [place], [place] [phone] Asim Sloan MD [address] [place] [address] 07/14/2024 10:30 AM EDT Office Visit [facility] MED & PEDS [address] [place], [place] [phone] Jacy Aldridge MD [address] [place] [address] documented as of this encounter Visit Diagnoses Not on filedocumented in this encounter Care Teams Agile Scrum Coach Relationship Specialty Start Date End Date Jacy Aldridge MD [address] [place] [address] PCP - General Family Medicine 01/22/16 documented as of this encounter
--- OUTSIDE RECORDS SUMMARY | 2024-06-01 15:14 | XMS_ITS | Encounter Summary ---
Author Organization [employer] Address [address]t [place] [address] Care Team Providers Care Glass Frame Fitter Name Role Phone Jacy Aldridge MD Primary Care Provider Reason for Visit * Reason Onset Date Comments Appointment Request 03/27/2022 Encounter Details Date Type Department Care Team ([facility] st Contact Info) Description 03/27/2022 Telephone [facility] MED [facility] PEDS [address] [place], [place] [phone] Jacy Aldridge MD [address] [place], [place] [phone] Appointment Request Social History Tobacco Use Types Packs/Day Years Used Date Smoking Tobacco: Never Assessed Comments Unknown Sex and Gender Information Value Date Recorded Sex Assigned at Female 12/31/2021 10:16 AM EDT Legal Sex Female 10:16 AM EDT Gender Identity Female 12/31/2021 10:16 AM EDT Sexual Orientation Straight 12/31/2021 10 :16 AM EDT COVID-19 Exposure Response Date Recorded In the last 10 days, have yo u been in contact with someone who was confirmed or suspected to have Coronavirus/COVID-19? No / Unsure 03/25/2022 10:24 AM EST documented as of this encounter Miscellaneous Notes * Telephone Encounter - Ran Mehta - 03/27/2022 12:13 PM EST Tc from Amparo a case manger requesting an appt for patient for a Physical, Amparo states without the physical she cannot get some paperwork that she needs. Cardiovascular Operating Room Nurse try to book appt but provider did not have anything open. If any question please contact amparo at [phone] documented in this encounter Plan of Treatment Upcoming Encounters Date Type Department Care Team (Late st Contact Info) Description 07/05/2024 9:45 AM EDT Office Visit [facility] MED & PEDS [address] [place] [address] Asim Sloan MD [address] [place], [place] [phone] 07/14/2024 10:30 AM EDT Office Visit [facility] MED & PEDS [address] [place] [address] Jacy Aldridge MD [address] [place] [address] documented as of this encounter Visit Diagnoses Not on filedocumented in this encounter Care Teams Glass Frame Fitter Relationship Specialty Start Date End Date Jacy Aldridge MD [address] [place] [address] PCP - General Family Medicine 01/22/16 documented as of this encounter
--- OUTSIDE RECORDS SUMMARY | 2024-06-01 15:14 | XMS_ITS | Encounter Summary ---
Author Organization [employer] [facility] Address [address] [place] [address] Care Team Providers Care Pressfitter Name Role Phone Jacy Aldridge MD Primary Care Provider [phone] Reason for Visit * Reason Onset Date Comments Results 05/28/2024 Encounter Details Date Type Department Care Team ([facility] st Contact Info) Description 05/28/2024 Telephone [facility] [address] [place], [place] [phone] Jake Fulton MD [address] [place], [place] [phone] Results Social History Tobacco Use Types Packs/Day Years [...] your housing situation today? I have olivia rush 12/17/[address] you li [...] encounter Miscellaneous Notes * Telephone Encounter - Lory Painting RN - 05/28/2024 8:45 AM EDT Second call attempt. Advised patient her vaginal swab was positive for BV. Patient prefers flagyl oral tablets. Will notify evaluating provider. Patient's pharmacy confirmed - [facility].All questions answered. Patient verbalizes understanding and agreement with plan of care at this [place] [employer] [id number] ----- Message from Jake Fulton MD sent at 05/27/2024 11:17 AM EDT ----- Please notify Cinthya that her vaginal swabs were negative except for BV. Could you ask her if she would prefer Flagyl tablets or intravaginal gel? Thanks Manish documented in this encounter Plan of Treatment Upcoming Encounters Date Type Department Care Team (Late st Contact Info) Description 07/05/2024 9:45 AM EDT Office Visit [facility] MED & PEDS [address] [place] [address] Asim Sloan MD [address] [place] [address] 07/14/2024 10:30 AM EDT Office Visit [facility] MED & PED[facility] [address] [place] [address] Jacy Aldridge MD [address] [place] [address] documented as of this encounter Visit Diagnoses Not on filedocumented in this encounter Additional Health Concerns Assessment Noted Time PHQ-9 Depression Total Score: 2 05/07/19 24 11:32 AM EST documented as of this encounter Care Teams Pressfitter Relationship Specialty Start Date End Date Jacy Aldridge MD [address] [place] [address] PCP - General Family Medicine 01/22/16 documented as of this encounter
--- OUTSIDE RECORDS SUMMARY | 2024-06-01 15:14 | XMS_ITS | Encounter Summary ---
Author Organization [employer] [facility] Address [address] [place] [address] Care Team Providers Care Hawk Missile Air Defense Artillery Name Role Phone Jacy Aldridge MD Primary Care Provider [phone] Reason for Visit * Reason Onset Date Comments Appointment Request 05/24/2024 Encounter Details Date Type Department Care Team ([facility] st Contact Info) Description 05/24/2024 Telephone [facility] MEDICINE [address] [place] [address] Jacy Aldridge MD [address] [place], [place] [phone] Appointment Request Social History Tobacco Use Types [...] is your housing situation today? I have oliviaoren rush 12/17/[address] you [...] encounter Miscellaneous Notes * Telephone Encounter - Tonya Madison - 05/24/2024 11:43 AM EDT Tc from [place] with [facility] requesting a call back to schedule OV Extended. Pt las annual 12/26/22 (Pt) documented in this encounter Plan of Treatment Upcoming Encounters Date Type Department Care Team (Late st Contact Info) Description 07/05/2024 9:45 AM EDT Office Visit [facility] [address] [place] [address] Asim Sloan MD [address] [place] [address] 07/14/2024 10:30 AM EDT Office Visit [facility] [address] [place] [address] Jacy Aldridge MD [address] [place] [address] documented as of this encounter Visit Diagnoses Not on filedocumented in this encounter Additional Health Concerns Assessment Noted Time PHQ-9 Depression Total Score: 2 05/07/19 24 11:32 AM EST documented as of this encounter Care Teams [employer] Art[employer] Relationship Specialty Start Date End Date Jacy Aldridge MD [address] [place] [address] PCP - General Family Medicine 01/22/16 documented as of this encounter
--- OUTSIDE RECORDS SUMMARY | 2024-06-01 15:14 | XMS_ITS | Clinical Summary ---
Author Organization [employer] [facility] ity Address [address] [place] [address] Care Team Providers Care Senior Budget Analyst Name Role Phone Juan Diego Zaidi MD Primary Care Provider Social History Tobacco Use Types Packs/Day Years Used Date Smoking Tobacco: Never Assessed Comments Unknown Sex and Gender Information Value Date Recorded Sex Assigned at Not on file Legal Sex Female 2:57 AM EST Gender Identity Not on file Sexual Orientation Not on file Plan of Treatment Health Maintenance Due Date Last Done Comments Breast Cancer Screening 1955 DTaP,Tdap,and Td Vaccines (1 - Tdap) 1976 Pneumococcal Vaccine: 50+ Ye ars (1 of 1 - PCV) 2007 Zoster Vaccines (1 of 2) 2007 COVID-19 Vaccine ( - 2023-2 5 season) 2023 Influenza Vaccine (#1) 2023 RSV Immunization Patients 60 + Years Old (1 - 1-dose 75+ series) 2032 HIB Vaccines Aged Out No longer eligi ble based on patient's age to complete this topic HPV Vaccines Aged Out No longer eligi ble based on patient's age to complete this topic Hepatitis A Vaccines Aged Out No long er eligible based on patient's age to complete this topic Hepatitis B Vaccines Aged Out No long er eligible based on patient's age to complete this topic IPV Vaccines Aged Out No longer eligi ble based on patient's age to complete this topic MMR Vaccines Aged Out No longer eligi ble based on patient's age to complete this topic Meningococcal ACWY Vaccine Aged Out N o longer eligible based on patient's age to complete this topic Meningococcal B Vacine Aged Out No lo nger eligible based on patient's age to complete this topic RSV Immunization Patients Un ugo 20 months Aged Out No longer eligible b ased on patient's age to complete this topic Varicella Vaccines Aged Out No longer eligible based on patient's age to complete this topic Care Teams Senior Budget Analyst Relationship Specialty Start Date End Date Juan Diego Zaidi MD [address] [place] [address] PCP - General Internal Medicine 11/21/15
--- OUTSIDE RECORDS SUMMARY | 2024-06-01 15:14 | XMS_ITS | Encounter Summary ---
Author Organization [employer] [facility] Address [address] [place] [address] Care Team Providers Care Assistant Director Of Nursing Name Role Phone Jacy Aldridge MD Primary Care Provider [phone] Reason for Visit * Reason Onset Date Comments FYI 09/16/2023 Encounter Details Date Type Department Care Team ([facility] st Contact Info) Description 09/16/2023 Telephone [facility] MED[facility] [address] [place], [place] [phone] Jacy Aldridge MD [address] [place], [place] [phone] FYI Social History Tobacco Use Types Packs/Day Years [...] encounter Miscellaneous Notes * Telephone Encounter - Harpal Rodriguez - 09/16/2023 12:02 PM EDT Tc from [place], Nurse practitioner with [facility], wants to inform pcp pt is not consistently refilling or taking her medication. The only medication pt is taking consistently is the suboxone. If any questions for Rosalie please contact her at [phone] ext [phone]. documented in this encounter Plan of Treatment Upcoming Encounters Date Type Department Care Team ([facility] st Contact Info) Description 07/05/2024 9:45 AM EDT Office Visit [facility] MED & PEDS [address] [place] [address] Asim Sloan MD [address] [place] [address] 07/14/2024 10:30 AM EDT Office Visit [facility] MED & PEDS [address] [place] [address] Jacy Aldridge MD [address] [place] [address] documented as of this encounter Visit Diagnoses Not on filedocumented in this encounter Additional Health Concerns Assessment Noted Time PHQ-9 Depression Total Score: 2 05/07/19 24 11:32 AM EST documented as of this encounter Care Teams Assistant Director Of Nursing Relationship Specialty Start Date End Date Jacy Aldridge MD [address] [place] [address] PCP - General Family Medicine 01/22/16 documented as of this encounter
--- OUTSIDE RECORDS SUMMARY | 2024-06-01 15:14 | XMS_ITS | Encounter Summary ---
Author Organization [employer] Address [address] 7t [place] [address] Care Team Providers Care Dry Primer Powder Blender Name Role Phone Jacy Aldridge MD Primary Care Provider [phone] Reason for Visit * Reason Onset Date Comments Appointment Request 10/28/2022 Encounter Details Date Type Department Care Team ( Contact Info) Description 10/28/2022 Telephone [facility]EDS [address] [place] [address] Jacy Aldridge MD [address] [place], [place] [phone] Appointment Request Social History Tobacco Use Types [...] * Telephone Encounter - Ran Mehta - 10/28/2022 3:50 PM EDT Tc from pt requesting an appt with provider for a physical due to not seeing provider in a year. Please contact pt at [phone] Amharic Speaker documented in this encounter Plan of Treatment Upcoming Encounters Date Type Department Care Team (Late Contact Info) Description 07/05/2024 9:45 AM EDT Office Visit [facility] MED & PEDS [address] [place] [address] Asim Sloan MD [address] [place] [address] 07/14/2024 10:30 AM EDT Office Visit [facility] MED & PEDS [address] [place] [address] Jacy Aldridge MD [address] [place] [address] documented as of this encounter Visit Diagnoses Not on filedocumented in this encounter Care Teams Dry Primer Powder Blender Relationship Specialty Start Date End Date Jacy Aldridge MD [address] [place] [address] PCP - General Family Medicine 01/22/16 documented as of this encounter
--- OUTSIDE RECORDS SUMMARY | 2024-06-01 15:14 | XMS_ITS | Encounter Summary ---
Author Organization [employer] [facility] Address [address] [place] [address] Care Team Providers Care Remedy Developer Name Role Phone Jacy Aldridge MD Primary Care Provider [phone] Reason for Visit * Reason Onset Date Comments Results 05/27/2024 Encounter Details Date Type Department Care Team ([facility] st Contact Info) Description 05/27/2024 Telephone [facility] WALK[facility] [address] [place], [place] [phone] Claire Murphy RN Results Social History Tobacco Use Types Packs/Day [...] encounter Miscellaneous Notes * Telephone Encounter - Claire Murphy RN - 05/27/2024 11:40 AM EDT TC to pt using [employer] construction [employer] crossing guard ID#[id number] for Colombian. No VM set up, unable to leave a message. Will re attempt ----- Message from Jake Fulton MD sent at 05/27/2024 11:17 AM EDT ----- Please notify Cinthya that her vaginal swabs were negative except for BV. Could you ask her if she would prefer Flagyl tablets or intravaginal gel? documented in this encounter Plan of Treatment Upcoming Encounters Date Type Department Care Team (Late st Contact Info) Description 07/05/2024 9:45 AM EDT Office Visit [facility] MED & PEDS [address] [place] [address] Asim Sloan MD [address] [place] [address] 07/14/2024 10:30 AM EDT Office Visit [facility] MED [facility] PEDS [address] [place] [address] Jacy Aldridge MD [address] [place] [address] documented as of this encounter Visit Diagnoses Not on filedocumented in this encounter Additional Health Concerns Assessment Noted Time PHQ-9 Depression Total Score: 2 05/07/19 24 11:32 AM EST documented as of this encounter Care Teams Remedy Developer Relationship Specialty Start Date End Date Jacy Aldridge MD [address] [place] [address] PCP - General Family Medicine 01/22/16 documented as of this encounter
--- OUTSIDE RECORDS SUMMARY | 2024-06-01 15:14 | XMS_ITS | Encounter Summary ---
Author Organization [employer] [facility] Address [address] [place] [address] Care Team Providers Care Pressure Welder Name Role Phone Jacy Aldridge MD Primary Care Provider [phone] Reason for Visit * Reason Onset Date Comments ER Follow-up 02/25/2023 Encounter Details Date Type Department Care Team ([facility] st Contact Info) Description 02/25/2023 Telephone [facility] [address] [place] [address] Jacy Aldridge MD [address] [place], [place] [phone] ER Follow-up Social History Tobacco Use Types Packs/Day Years Used Date Smoking Tobacco: Every Day Cigarettes Smokeless Tobacco: Never Comments:Smokes an average o f 2 cig a day. Used to smoke 1 ppd until last year. Housing Stability Answer Date Recorded What is [...] off services in your home? No 12/17/2022 Comments Unknown Sex and Gender Information Value Date Recorded Sex Assigned at Female 12/31/2021 10:16 AM EDT Legal Sex Female 10:16 AM EDT Gender Identity Female 12/31/2021 10:16 AM EDT Sexual Orientation Straight 12/31/2021 10 :16 AM EDT documented as of this encounter Miscellaneous Notes * Telephone Encounter - Patricia Owen RN - 02/25/2023 10:46 AM EST Pt [place] [facility] [place] for NSTEMI. Returned call to pt SHEET PILE DRIVER OPERATOR and SHEET PILE DRIVER OPERATOR agrees to HDF appt with provider on 03/07/23. SHEET PILE DRIVER OPERATOR states besides minimal dizziness at times, pt denies any CP or other concerns. SHEET PILE DRIVER OPERATOR advised to call office if there are any further questions or concerns or return to ED if pt develops SOB or CP. * Telephone Encounter - Steve Gómez - 02/25/2023 10:15 AM EST Tc from patients SHEET PILE DRIVER OPERATOR calling to make appt please call Gena at [phone] Patient calling to report ED visit on : 02/25 Date: 02/18 Hospital: [facility] Seen for: Heart Attack Patient advised will forward to team nurse for follow up documented in this encounter Plan of Treatment Upcoming Encounters Date Type Department Care Team (Late st Contact Info) Description 07/05/2024 9:45 AM EDT Office Visit [facility] MED & PEDS [address] [place] [address] Asim Sloan MD [address] [place] [address] 07/14/2024 10:30 AM EDT Office Visit [facility] MED [facility] PEDS [address] [place] [address] Jacy Aldridge MD [address] [place] [address] documented as of this encounter Visit Diagnoses Not on filedocumented in this encounter Care Teams Pressure Welder Relationship Specialty Start Date End Date Jacy Aldridge MD [address] [place] [address] PCP - General Family Medicine 01/22/16 documented as of this encounter
--- OUTSIDE RECORDS SUMMARY | 2024-06-01 15:14 | XMS_ITS | Clinical Summary ---
Author Organization [facility] Address [address] [place] [address] Care Team Providers Care Business Employment Specialist Name Role Phone Jacy Aldridge MD Primary Care Provider [phone] Allergies No known active allergies Medications * This document contains information received from the source organization and may not represent a complete record from that organization. naloxone (Narcan) 4 mg/0.1 mL nasal spray Administer 0.1 mL into affected nostril(s). Active aspirin 81 MG EC tablet Take 1 tablet by mouth Once daily. 022 Active cholecalciferol (Vitamin D-3) 50 MCG (1999 UT) capsule Take 1 capsule orally daily 30 capsule 11 023 Active Additional Information Patient not taking.Reported on 03/04/2023 pantoprazole (ProtoNix) 40 MG EC tablet Take 1 tablet (40 mg) by mouth before breakfast. 30 tablet 1 023 Active Additional Information Patient not taking.Reported on 03/04/2023 Respiratory Therapy Supplies (Nebulizer/Tubin g/Mouthpiece) kit To be used with Nebulizer 1 kit 1 023 Active mirtazapine (Remeron) 7.5 MG tablet TAKE ONE TABLET AT BEDTIME 30 tablet 5 023 Active Additional Information Patient not taking.Reported on 03/04/2023 nicotine polacrilex (Nicorette) 2 MG gum CHEW 1 PEICE OF GUM BY MOUTH EVERY HOUR NEEDED FOR NICOTINE CRAVINGS 023 Active loratadine (Claritin) 10 MG tablet TAKE ONE TABLET EVERY MORNING 30 tablet 5 024 Active Mometasone Furoate (Asmanex, 60 Metered Doses,) 220 MCG/ACT aerosol powder Inhale 1 puff 2 times daily. 60 each Active citalopram (CeleXA) 20 MG tablet Take 1 tablet (20 mg) by mouth in the morning. 30 tablet 5 Active lisinopril 5 MG tablet Take 1 tablet (5 mg) by mouth in the morning. 30 tablet Active atorvastatin (Lipitor) 40 MG tablet Take 1 tablet (40 mg) by mouth in the morning. 30 tablet Active albuterol (2.5 MG/3ML) 0.083% nebulizer solution USE ONE AMPULE USING A NEBULIZER THREE TIMES DAILY NEEDED 90 mL Active Buprenorphine HCl-Naloxone HCl (Suboxone) 8-2 MG SL filmIndications: Opioid dependence, uncomplicated (CMS/HCC) Place 2 Film under the tongue Once per day. Do not start before May 10, 2024. 56 Film 1 2024 Active Ventolin HFA 108 (90 Base) MCG/ACT inhaler INHALE TWO PUFFS EVERY 6 HOURS NEEDED FOR WHEEZING 18 g 2 Active nicotine (Nicoderm CQ) 14 MG/24HR patch Place 1 patch on the skin 1 (one) time each day at the same time. 42 patch 2024 Active nicotine (Nicoderm CQ) 7 MG/24HR patch Place 1 patch on the skin 1 (one) time each day at the same time. 14 patch 2024 Active nicotine polacrilex (Commit) 2 MG lozenge Dissolve 1 lozenge (2 mg) in the mouth if needed for smoking cessation. 100 lozenge 025 2024 Active Blood Pressure kit 1 each 2 times daily. Call [facility] if BP readings are > 140/90 1 kit 025 2025 Active metroNIDAZOLE (Flagyl) 500 MG tablet Take 1 tablet (500 mg) by mouth after breakfast and after evening meal for 7 days. 14 tablet 025 2024 Active Ventolin HFA 108 (90 Base) MCG/ACT inhaler INHALE TWO PUFFS EVERY 6 HOURS NEEDED FOR WHEEZING 18 g 2 024 2024 Discontinued Buprenorphine HCl-Naloxone HCl (Suboxone) 8-2 MG SL filmIndications: Opioid dependence, uncomplicated (CMS/HCC) Place 2 Film under the tongue Once per day. Do not start before March 15, 2024. 56 Film 1 025 2024 Discontinued(R eorder (will not trigger notification to Pharmacy)) nitrofurantoin, macrocrystal-mon ohydrate, (Macrobid) 100 MG capsule Take 1 capsule (100 mg) by mouth 2 times daily for 5 days. 10 capsule 025 2024 Hospital, Clinic, or Other Facility Administered Medication Ordered Dose Route Frequency Start Date End Date Status aspirin chewable tablet 324 mgIndications:Chest pain, unspecified type 324 mg PO Once 05/26/2024 Active aspirin chewable tablet 324 mgIndications:Elevated blood pressure reading in office without diagnosis of hypertension 324 mg PO Once 05/26/2024 05/26/2024 Ended Active Problems Problem Noted Date Diagnosed Date Tobacco dependence 05/26/2024 NSTEMI (non-ST elevated myocardial infarction) 0 05/07/2023 Takotsubo cardiomyopathy 05/07/2023 Moderate recurrent major depression 10/10/2017 Gastroesophageal reflux disease 08/29/2011 Vitamin D deficiency 08/29/2011 Continuous opioid dependence 06/25/2011 Acute hepatitis C 06/20/2011 Anxiety state 06/20/2011 Depressive disorder 06/20/2011 Pure hypercholesterolemia 06/20/2011 Encounters Date Type Department Care Team Description 05/28/2024 Orders Only [facility] [address] [place] [phone] Jake Fulton MD 05/28/2024 Telephone [facility] [address] [place] [phone] Jake Fulton MD Results 05/27/2024 Telephone [facility] [address] [place] [phone] Claire Murphy RN Results 05/26/2024 11:00 AM EDT Office Visit [facility] [address] [place] [address] [phone] Jake Fulton MD Dysuria (Primary Dx); Chest pain, unspecified type; Elevated blood pressure reading in office without diagnosis of hypertension; Vaginal itching 05/24/2024 Telephone [facility] [address] [place] [address] Jacy Aldridge MD Appointment Request 05/21/2024 Telephone [facility] [place] [facility] [address] [place] [address] Jacy Aldridge MD No Show 05/21/2024 Refill [facility] [facility] [address] [place] [address] Jacy Aldridge MD 05/20/2024 Telephone [facility] [address] [place] [address] Jacy Aldridge MD Nurse Triage 05/20/2024 Telephone [facility] [address] [place] [phone] Jacy Aldridge MD Fyi 05/10/2024 9:45 AM EDT Office Visit [facility] [facility] [address] [place] [address] Asim Sloan MD Opioid type dependence, continuous (CMS/HCC) (Primary Dx) 05/10/2024 Travel 05/03/2024 Refill [facility] [address] [place] [phone] Supriya Esparza RN Opioid dependence, uncomplicated (CMS/HCC) 03/23/2024 Telephone [facility] [address] [place] [phone] Jacy Aldridge MD Nurse Triage 03/15/2024 10:00 AM EST Telemedicine [facility] [place] [facility] [address] [place] [address] Asim Sloan MD Opioid dependence, uncomplicated (CMS/HCC) (Primary Dx) 03/15/2024 Travel 03/09/2024 Refill [facility] [address] [place] [phone] Supriya Esparza, RODOLFO Opioid dependence, uncomplicated (CMS/HCC) 03/09/2024 Refill [facility] [address] [place] [phone] Supriya Esparza RN 03/09/2024 Refill [facility] [address] [place] [address] Supriya Esparza, RN Opioid dependence, uncomplicated ([facility]) from Last 3 Months Immunizations Name Administration Dates Next Due Influenza High-dose Quadriva lent Preservative Free 12/26/2022 Influenza injectable quadriv alent IIV4 with preservative 01/22/2019,12/29/2014 Influenza injectable quadriv alent preservative free 12/03/2021,02/04/2018,01/18/2018,10/01 Influenza, IIV3, injectable 12/29/2013 Influenza, Split (incl. susie fied surface antigen) 11/11/2012,11/12/2011 Moderna Covid-19 Vaccine 12+ 08/10/2020,07/14/19 21 Moderna Covid-19 Vaccine 6+ Bivalent 07/16/2022 Pneumococcal Conjugate PCV 20 03/07/2023 Pneumococcal Polysaccharide PPSV23 12/29/2014 RSV Bivalent 03/07/2023 TD (adult), 2 Lf tetanus tox oid, preservative free, adsorbed 10/10/2006 Tdap 10/10/2017 Zoster, Recombinant 02/04/2018,01/18/2018 Social History Tobacco Use Types Packs/Day Years Used Date Smoking Tobacco: Every Day Cigarettes Smokeless Tobacco: Never Tobacco Cessation:Ready to Q uit: Yes; Counseling Given: Yes Comments:Smokes an average of 2 cig a day. Used to smoke [...] Orientation Straight 12/31/2021 10 :16 AM EDT Last Filed Vital Signs Vital Sign Reading Time Taken Comments Blood Pressure 158/76 05/26/2024 11:02 AM EDT Pulse 67 05/26/2024 11:02 AM EDT Temperature 36.6 ??C (97.8 ??F) 05/26/2024 11:02 AM E DT Respiratory Rate 18 05/26/2024 11:02 AM EDT Oxygen Saturation 95% 05/26/2024 11:02 AM EDT Inhaled Oxygen Concentration - - Weight 57.2 kg (126 lb) 05/26/2024 11:02 AM EDT Height 160 cm (5' 3 ) 05/07/2023 11:29 AM EST Body Mass Index 22.32 05/07/2023 11:29 AM EST Plan of Treatment Upcoming Encounters Date Type Department Care Team (Late st Contact Info) Description 07/05/2024 9:45 AM EDT Office Visit [facility] [facility] [address] [place] [address] Asim Sloan MD [address] [place] [phone] 07/14/2024 10:30 AM EDT Office Visit [facility] [facility] [address] [place] [address] Jacy Aldridge MD [address] [place] [address] Health Maintenance Due Date Last Done Comments CT Colonography 1955 Colonoscopy 1955 Colorectal Cancer Screening 1955 FIT DNA/Cologuard 1955 FIT 1957 FOBT 1955 Sigmoidoscopy 1957 Alcohol/Substance Use Screening 1969 Hepatitis A Vaccines (1 of 2 - Risk 2-dose series) 1976 Hepatitis B Vaccines (1 of 3 - Risk 3-dose series) 2017 Zoster Vaccines (2 of 2) 04/01/2018 02/04/2018, 01/01 COVID-19 Vaccine ( season) 2023 07/16/2022, 01/05/2022, 08/10/2020, Additional history exists Influenza Vaccine (#1) 2023 , 12/03/2021, 01/22/2019, Additional history exists SDOH Screening 12/18/2023 12/17/2022 Depression Screening 05/06/2024 05/07/2023, 05/07/19 24 Tobacco Screening 05/26/2025 05/26/2024 Mammogram 09/02/2025 09/03/2023, 11/0 08/2022, 08/26/2022, Additional history exists DTaP/Tdap/Td Vaccines (2 - Td or Tdap) 10/11/2027 10/10/2017, 10/10/2006 Lipid Panel 07/06/2028 07/07/2023, 12/02, 05/31/2021, Additional history exists Pneumococcal Vaccine: 50+ Years Completed 03/07/2023, 12/29/2014 RSV Patients and Patients Aged 60 years or older Completed 03/07/2023 HIB Vaccines Aged Out No longer eligi ble based on patient's age to complete this topic HPV Vaccines Aged Out No longer eligi ble based on patient's age to complete this topic IPV Vaccines Aged Out No longer eligi ble based on patient's age to complete this topic Meningococcal Vaccine Aged Out No augustin cathy eligible based on patient's age to complete this topic RSV under 20 months Aged Out No longe r eligible based on patient's age to complete this topic Rotavirus Vaccines Aged Out No longer eligible based on patient's age to complete this topic Procedures Procedure Name Priority Date/Time Associated Diagnosis Comments ECG 12-LEAD Routine 05/26/2024 2:26 PM EDT Chest pain, unspecified type CULTURE, URINE, ROUTINE Routine 05/26/2024 11:25 AM EDT Vaginal itching CHLAMYDIA/N. GONORRHOEAE RNA, TMA, UROGENITAL Routine 05/26/2024 11:25 AM EDT Vaginal itching BACTERIAL VAGINOSIS PANEL Routine 05/26/2024 11:25 AM EDT Vaginal itching POCT URINALYSIS DIPSTICK Routine 05/26/2024 11:23 AM EDT Vaginal itching POCT JAMES-14 URINE DRUG SCREEN Routine 05/10/2024 10:46 AM EDT Opioid type dependence, continuous (CMS/HCC) BI MAMMOGRAM SCREENING TOMOSYNTHESIS BILATERAL Routine 09/03/2023 12:05 PM EDT LIPID PANEL, STANDARD Routine 07/07/2023 10:40 AM EDT from Last 3 Months or Most Recently Relevant to Health Maintenance Results * (ABNORMAL) Bacterial Vaginosis Panel (05/26/2024 11:25 AM EDT) TRICHOMONAS VAGINALIS DETECTION BY PCR NOT DETECTED Not Detect [facility] BACTERIAL VAGINOSIS DETECTION BY PCR POSITIVE(A) Negative [facility] Comment:The BV organism targ ets of the Xpert Xpress MVP test can becommensal in women; Xpert Xpress MVP positive results forbacterial vaginosis should be considered in conjunction withother clinical and patient information to determine thedisease status. Organisms that are not detected by the XpertXpress MVP test have also been reported to be associatedwith BV and aerobic vaginitis.The Xpert Xpress MVP test performance has not been evaluatedin patients under the age of 14. ZAHRA GROUP DETECTION BY PCR NOT DETECTED Not Detect [facility] Zahra glab krusei PCR NOT DETECTED Not Detect [facility] Swab Vaginal structure / Unknown 05/26/2024 11:25 AM EDT 05/26/2024 5:03 PM EDT Jake Fulton MD LAB MICROBIOLOGY - GENERAL ORDER TERRANCE Final Result [facility] [address] [place] [address] [phone] * Chlamydia/N. Gonorrhoeae RNA, TMA, Urogenitial (05/26/2024 11:25 AM EDT) CT PCR NOT DETECTED Not Detect. [facility] Comment:A not detected test result does not exclude the possibilityof infection because test results can be affected byimproper specimen collection, concurrent antibiotic therapy,or the number of organisms in the specimen which may bebelow the sensitivity of the test. As with many diagnostictests, results from the Xpert CT/NG assay should beinterpreted in conjunction with other laboratory andclinical data available to the clinician.Xpert CT/NG performance has not been evaluated in patientsless than 14 years of age. The assay should not be used forthe evaluationof suspected sexual abuse or for other medico-legalindications. Additional testing is recommended in anycircumstance when false positive or false negative resultscould lead to adverse medical, social or psychologicalconsequences. NG PCR NOT DETECTED Not Detect. [facility] Comment:A not detected test result does not exclude the possibilityof infection because test results can be affected byimproper specimen collection, concurrent antibiotic therapy,or the number of organisms in the specimen which may bebelow the sensitivity of the test. As with many diagnostictests, results from the Xpert CT/NG assay should beinterpreted in conjunction with other laboratory andclinical data available to the clinician.Xpert CT/NG performance has not been evaluated in patientsless than 14 years of age. The assay should not be used forthe evaluationof suspected sexual abuse or for other medico-legalindications. Additional testing is recommended in anycircumstance when false positive or false negative resultscould lead to adverse medical, social or psychologicalconsequences. Swab (Vaginal Swab) 05/26/2024 11:25 AM EDT 05/26/2024 5:03 PM EDT [facility] - 05/26/2024 8:04 PM EDT Vaginal Jake Fulton MD LAB MICROBIOLOGY - GENERAL ORDER TERRANCE Final Result Performing Organization Address [facility] Co de Phone Number [facility] [address] [place] [phone] * Culture, Urine, Routine (05/26/2024 11:25 AM EDT) Urine Urine specimen obtained by clean catch procedure / Unknown 05/26/2024 11:25 AM EDT 05/26/2024 4:50 PM EDT Comment:[facility] - 05/28/2024 7:42 AM EDT Escherichia coli Quant 50,000 to 100,000 cfu/mL Escherichia coli: Ampicillin <=2(S) Escherichia coli: Cefazolin (Urine) <=1(S) Escherichia coli: Cefepime <=0.12(S) Escherichia coli: Ceftriaxone <=0.25(S) Escherichia coli: Ciprofloxacin <=0.06(S) Escherichia coli: Gentamicin <=1(S) Escherichia coli: Nitrofurantoin <=16(S) Escherichia coli: Trimethoprim/Sulfamethoxazole <=20(S) Specimen Source: Urine clean catch us Jake Fulton MD LAB MICROBIOLOGY - GENERAL ORDER TERRANCE Final Result Performing Organization Address [facility] Co de Phone Number [facility] [address] [place] [phone] * (ABNORMAL) POCT urinalysis dipstick manually resulted (05/26/2024 11:23 AM EDT) Color, UA Pope Clarity, UA Clear Glucose, UA Negative Bilirubin, UA Few 15 Comment:small Ketones, UA Negative Spec Grav, UA 1.030 Blood, UA Positive(A) Negative, None Detected Comment:small pH, UA 5.5 Protein, UA Few 15 Comment:30 mg/dL Urobilinogen, UA 0.2 Leukocytes, UA Few 15(A) Negative, Rare, Trace Comment:small Nitrite, UA Negative Negative, None Detected Urine 05/26/2024 11:2 3 AM EDT Jake Fulton MD POINT OF CARE TEST ENTER/EDIT OR DERABLES Final Result * POCT JAMES-14 Urine Drug Screen (05/10/2024 10:46 AM EDT) THC Positive Cocaine Screen, Urine Negative Opiate Screen, Urine Negative Methamphetamine Screen Urine Negative Amphetamine Screen, Urine Negative Benzodiazepines Screen, Urine Negative Barbiturate Screen, Urine Negative Methadone Screen, Urine Negative Buprenophine Screen, Urine Positive TCA, Urine Negative MDMA Urine Negative ng/mL Oxycodone Screen, Urine Negative Phencyclidine (PCP), Urine Negative Propoxyphene, Urine Negative Fentanyl, Urine Negative Urine Urine specimen obtained by clean catch procedure / Unknown 05/10/2024 10:46 AM EDT Asim Sloan MD POINT OF CARE TEST ENTER/EDIT OR DERABLES Final Result * BI Mammogram Screening Tomosynthesis Bilateral (09/03/2023 12:05 PM EDT) Anatomical Region Laterality Modality Breast Bilateral Mammography 09/03/2023 12:0 5 PM EDT Narrative 09/23/2023 9:55 PM EDT ? [facility] [place] ? [address] ?[place] [address] ? Mammography Report ? Signed ? Patient: Mayda Mcpherson,Cinthya ?MR#: [id number] ?? [id number] ? : 1955 ?Acct:[id number] ? Age/Sex: 68 / F ?ADM Date: 07/03/24 ? Loc: HO.MAMMO ? Attending Dr: Jacy Aldridge MD ? Ordering Physician: Jacy Aldridge MD ?Results: 1Ne ?? gative ? Date of Service: 09/03/23 ?Follow Up: 1 Year From Orig ?? inal Mammogram ? Procedure(s): MM tomosynthesis screening BI ?? Accession Number(s): [id number] ? cc: Jacy Aldridge MD ? EXAMINATION: ?? MM SCREENING DIGITAL BREAST TOMOSYNTHESIS, BILATERAL ? CLINICAL INFORMATION: ? Screening. Asymptomatic. ? COMPARISON: ?? Mammography: This study is compared with prior exams dating back to ?? 2019. ? TECHNIQUE: ?? Digital breast tomosynthesis is performed in both the craniocaudal and ?? mediolateral oblique views along with computer-aided detection (CAD). ?? Synthesized 2D images are generated from the tomosynthesis. ? FINDINGS: ?? There are scattered areas of fibroglandular density (ACR BI-RADS breast ?? composition Category b). ? There are no significant masses, abnormal calcifications, or other ?? abnormalities. ? MM/MM tomosynthesis screening BI ?? IMPRESSION: ?? No mammographic evidence of malignancy. ? ASSESSMENT: ? BI-RADS BI-RADS 1 - Negative ? RECOMMENDATION: ?? Routine annual mammography screening. ? 1 year F/U ? This examination should not preclude the clinical evaluation of a ?? suspicious palpable abnormality. ? This patient's information was entered into a reminder system with a ?? target due date for their next mammogram. ? Dictated By: ?Michelle Naqvi MD ? Signed By: ?<Electronically signed by Michelle Naqvi MD in OV> ? 09/23/23 2151 ? DD/ 1205 ? TD/TT: ? Painting Manager: ? Procedure Note Donotuseinterpreter, Image - 09/23/2023 [facility] [address] [place] [address] Mammography Report Signed Patient: Ning TayR#: M [id number] : 8Acct:[id number] Age/Sex: 68 / FADM Date: 09/03/23 Loc: MAMMO Attending Dr: Jacy Aldridge MD Ordering Physician: Jacy Aldridge MDResults: 1Ne gative Date of Service: 09/03/23Follow Up: 1 Year From Orig inal Mammogram Procedure(s): MM tomosynthesis screening BI Accession Number(s): [id number] cc: Jacy Aldridge MD EXAMINATION: MM SCREENING DIGITAL BREAST TOMOSYNTHESIS, BILATERAL CLINICAL INFORMATION: Screening. Asymptomatic. COMPARISON: Mammography: This study is compared with prior exams dating back to 2019. TECHNIQUE: Digital breast tomosynthesis is performed in both the craniocaudal and mediolateral oblique views along with computer-aided detection (CAD). Synthesized 2D images are generated from the tomosynthesis. FINDINGS: There are scattered areas of fibroglandular density (ACR BI-RADS breast composition Category b). There are no significant masses, abnormal calcifications, or other abnormalities. MM/MM tomosynthesis screening BI IMPRESSION: No mammographic evidence of malignancy. ASSESSMENT: BI-RADS BI-RADS 1 - Negative RECOMMENDATION: Routine annual mammography screening. 1 year F/U This examination should not preclude the clinical evaluation of a suspicious palpable abnormality. This patient's information was entered into a reminder system with a target due date for their next mammogram. Dictated By: Michelle Naqvi MD Signed By: <Electronically signed by Michelle Naqvi MD in OV> 09/23/23 2151 DD/ 1205 TD/TT: Painting Manager: us Jacy Aldridge MD IMG BI PROCEDURES Final Resul t * Lipid Panel, Standard (07/07/2023 10:40 AM EDT) Triglycerides 59 <150 mg/dL [facility] Comment:Desirable Triglyceri de: less than 150 mg/dLBorderline High Triglyceride 150-199 mg/dLHigh Triglyceride: 200-499 mg/dLVery High Triglyceride: greater than or equal to 5OO mg/dL Cholesterol 142 <200 mg/dL [facility] Comment:Desirable Cholestero l: less than 200 mg/dLBorderline High Cholesterol: 200-239 mg/dLHigh Cholesterol: greater than 239 mg/dL LDL Cholesterol Calculated 76 <100 mg/dL [facility] Comment:Desirable LDL: less than 100 mg/dLNear Optimal/Above Optimal LDL: 110- 129 mg/dLBorderline High LDL: 130-159 mg/dLHigh LDL: 160-189 mg/dLVery High LDL: greater than or equal to 190 mg/dL HDL Cholesterol 55 >40 mg/dL [facility] Comment:Desirable HDL: great er than 40 mg/dL Note: This HDL assay may give artificially low results in patients with liver disease. 07/07/2023 10:4 0 AM EDT 07/07/2023 10:40 AM EDT us Generic External Data Provider LAB BLOOD ORDERAB LES Final Result [facility] [address] [place] [address] [phone] from Last 3 Months or Most Recently Relevant to Health Maintenance Insurance [facility] * Guarantor: Cinthya Mcpherson Account Type Relation to Patient Date of Phone Billing Address Personal/Family Self [id number] Care Teams Business Employment Specialist Relationship Specialty Start Date End Date Jacy Aldridge MD [address] [place] [address] [place] [id number] PCP - General Family Medicine 01/22/16
== END ==
LOC: HO.CARD 13:00
PROVIDERS: PCP Pediatrics; Visit Provider Nurse Practitioner Family
DX: I51.81 Takotsubo syndrome (principal)
CPT/HCPCS: 93306; Q9957

== ENCOUNTER → 2024-06-01 13:02 | Outpatient (BNV) | payer OTHER, SELFPAY | PROVIDERS: PCP Pediatrics; Visit Provider Internal Medicine | DX: I51.81 Takotsubo syndrome (principal) | CPT/HCPCS: 93306 ==

== ENCOUNTER 2024-07-06 09:29 | Outpatient (AMB) | payer OTHER, SELFPAY ==
[2024-07-06 09:41] VITALS: BP 160/62; PULSE 59; BMI 23.6
--- NOTE | 2024-07-06 09:41 | MHC.OFFVIS ---
Vital Signs 07/06/24 09:41 Height 5 ft 2 in Weight 129 lb 3.054 oz BMI 23.6 BP 160/62 H Blood Pressure Location Lt brachial Position Sitting Pulse 59 Pulse Source Monitor Intake Visit Reasons: 1 yr follow up [employer] Utility Worker Required: Yes [employer] Utility Worker Language: Leisure Studies Professor Name: voice lombardi [id number] Organic Search Lead: Organic Search Lead Present Allergies clorox Allergy (Unknown, Uncoded 07/06/24 09:44) itchiness Medication List - Last Reconciled 07/06/24 by Jacqui Castañeda FLOOR COVERING PRINTER-C albuterol sulfate 90 mcg/actuation (Ventolin HFA) inhalation aspirin 81 mg PO DAILY atorvastatin 40 mg PO DAILY buprenorphine-naloxone 8-2 mg 2 film sublingual DAILY citalopram 20 mg PO DAILY fluticasone propionate 110 mcg/actuation (Flovent HFA) 2 puffs inhalation BID lisinopril 5 mg PO DAILY HPI HPI 1 yr follow up: Details: Cinthya is a 69-year-old female with past medical history of hypertension, 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 Her last prior visit was 07/07/2023. Today she reports she has not been taking her medications as directed. She says she can not read or write. She has help only 1 hour a week and does not have pill boxes or pill packs from the pharmacy. She knows her blood pressure has been elevated and will get occasional headaches and dizziness. She has not had chest discomfort at rest or with activity. She does notice shortness of breath at times which she relates to her asthma. She uses her inhaler and updraft machine as needed. No palpitations, syncope, syncope, falls. She tries to exercise routinely. Her neighbor is present today. Certified barrel marker used. [facility] Medical History (Updated 07/06/24 @ 11:57 by Jacqui Castañeda, FLOOR COVERING PRINTER-C) Asthma Polysubstance abuse Opioid dependence Hypertension GERD (gastroesophageal reflux disease) Surgical History History of cardiac cath Social History Household Members: None Housing: Apartment Patient Tobacco Use Status: Former Tobacco user Cigarettes Per Day: 9 Substance Use Type: Marijuana service: No Review of Systems Const All systems reviewed & are unremarkable except as noted in HPI and below ENT Details: headache Reports dizziness Card Denies chest pain, Denies chest pain at rest, Denies chest pain with activity, Denies rapid heart rate, Denies pedal edema, Denies edema, Denies leg edema, Denies lightheadedness, Denies palpitations, Reports dyspnea, Reports dyspnea on exertion and Denies orthopnea Resp Denies cough, Reports dyspnea and Reports dyspnea on exertion GI Denies hematochezia and Denies change in stool character Musc Denies abnormal gait, Denies limited range of motion, Denies muscle cramps, Denies muscle weakness, Denies numbness, Denies radiating pain into limb, Denies stiffness and Denies tingling Neuro Denies abnormal gait, Reports dizziness, Denies numbness and Denies tingling Endo Denies palpitations Physical Exam Vital Signs: BMI result Body Mass Index 23.6 Const General: cooperative, healthy appearing, comfortable and no acute distress Orientation/consciousness: patient oriented x3 Neck Neck: Yes normal visual inspection Resp Effort & Inspection: normal respiratory effort Auscultation: clear to auscultation bilaterally, no rales, no rhonchi and no wheezes Cardio Rate: regular rate Rhythm: regular rhythm Heart sounds: S1 normal heart sound present, S2 normal heart sound present, no gallops, no murmurs and no rubs Neuro General: patient oriented x3 Extrem General: Yes normal to inspection Psych Appearance: grossly normal Mental Status: mental status grossly normal Speech and movement: Normal speech and movement present Office Procedures EKG Details: Today, read by me, sinus bradycardia, rate 59, Qtc 411ms [id number], Complete Assessment & Plan Assessment & Plan (1) NSTEMI (non-ST elevated myocardial infarction): Code(s): I21.4 - Non-ST elevation (NSTEMI) myocardial infarction Category: Medical Plan: [facility] [place] for chest discomfort, 01/2023, ruled for NSTEMI. Echocardiogram showed EF 45-50%, multiple mid ventricular wall motion abnormalities that could represent a variant of stress-induced cardiomyopathy. She underwent cardiac catheterization on 02/19/23 showing normal coronary arteries. She was then confirmed to have diagnosis of stress-induced cardiomyopathy. A follow-up echo showed normalization of EF and wall motion. A repeat echo was done 06/01/2024 showing EF 67%, no valve or regional wall motion abnormalities. She is not taking medications as directed. Will forward this note to her PCP for review. EKG today showing sinus bradycardia, rate 59. No clinical signs of heart failure on examination. Will restart lisinopril and put at 10 mg daily since her blood pressure is elevated. Instructed to obtain lab work in 1 week. She has follow-up with PCP at that time. (2) Hypertension: Code(s): I10 - Essential (primary) hypertension Category: Medical Plan: [place] blood pressure goal less than 130/80. Blood pressure elevated say 160/62. She tells me she is not taking her medications as directed and had been on lisinopril 5 mg daily. I am restarting lisinopril however putting it at 10 mg daily. Labs done 07/07/2023 showed potassium 4.8, creatinine 0.7. She is due for repeat lab work. She has follow-up with PCP on 07/14/2024. Blood pressure can be rechecked and meds further titrated at that time if needed. I sent message to the pharmacy regarding pill pack for her. -she may also benefit from VNA to help with med management. (3) Takotsubo cardiomyopathy: Code(s): I51.81 - Takotsubo syndrome Category: Medical Plan: As above (4) History of cardiac cath: Comment: 02/19/2023, normal coronary arteries Code(s): Z98.890 - Other specified postprocedural states Category: Surgical Plan: As above Plan Time spent on chart review, documentation, interview and assessment Medications: New lisinopril ( Can pt have pill pack with her current medications) Lisinopril dose increased 10 mg PO DAILY 30 tabs 5RF Discontinued lisinopril Discontinued Reason: Doctor's Order 5 mg PO DAILY 30 tabs 3RF Coding Level of Care Code Est Pt Level 4 (37148) Complex EM visit Add On G2211 Diagnoses NSTEMI (non-ST elevated myocardial infarction) I21.4 Hypertension I10 Takotsubo cardiomyopathy I51.81 History of cardiac cath Z98.890 CPT Codes EKG - CPT: 81632-[id number], Complete ([id number]) Time Spent (min) 28
--- OUTSIDE RECORDS SUMMARY | 2024-07-06 10:27 | XMS_ITS | Encounter Summary ---
Author Organization [employer] Address [address] [facility] 7t [place] [address] Care Team Providers Care Retail Service Technician Name Role Phone Jacy Aldridge MD Primary Care Provider [phone] Reason for Visit * Reason Onset Date Comments FYI 09/16/2023 Encounter Details Date Type Department Care Team ([facility] st Contact Info) Description 09/16/2023 Telephone [facility] MEDICINE [address] [place], [place] [phone] Jacy Aldridge MD [address] [place], [place] [phone] FYI Social History Tobacco Use Types Packs/Day [...] EDT Tc from Rosalie, Nurse practitioner with [facility], wants to inform pcp pt is not consistently refilling or taking her medication. The only medication pt is taking consistently is the suboxone. If any questions for Rosalie please contact her at [phone] ext [phone]. documented in this encounter Plan of Treatment Upcoming Encounters Date Type Department Care Team (Late st Contact Info) Description 07/14/2024 10:30 AM EDT Office Visit [facility] PEDS [address] [place] [address] Jacy Aldridge MD [address] [place] [address] 09/27/2024 9:45 AM EDT Office Visit [facility] [address] [place] [address] Asim Sloan MD [address] [place] [address] documented as of this encounter Visit Diagnoses Not on filedocumented in this encounter Additional Health Concerns Assessment Noted Time PHQ-9 Depression Total Score: 2 05/07/19 24 11:32 AM EST documented as of this encounter Care Teams Retail Service Technician Relationship Specialty Start Date End Date Jacy Aldridge MD [address] [place] [address] PCP - General Family Medicine 01/22/16 documented as of this encounter
--- OUTSIDE RECORDS SUMMARY | 2024-07-06 10:27 | XMS_ITS | Encounter Summary ---
Author Organization [employer] Address [address] [place] [address] 7 [place] [address] Care Team Providers Care Auto Customize Painter Name Role Phone Jacy Aldridge MD Primary Care Provider [phone] Reason for Visit * Reason Onset Date Comments Housing Assistance 09/30/2022 Encounter Details Date Type Department Care Team ([facility] Contact Info) Description 09/30/2022 Telephone [facility] & PEDS [address] [place], [place] [phone] Jacy Aldridge MD [address] [place], [place] [phone] Housing Assistance Social History Tobacco Use Types [...] Upcoming Encounters Date Type Department Care Team ([facility] Contact Info) Description 07/14/2024 10:30 AM EDT Office Visit [facility] PEDS [address] [place], [place] [phone] Jacy Aldridge MD [address] [place], [place] [phone] 09/27/2024 9:45 AM EDT Office Visit [facility] [address] [place], [place] [phone] Asim Sloan MD [address] [place] [address] documented as of this encounter Visit Diagnoses Not on filedocumented in this encounter Care Teams Auto Customize Painter Relationship Specialty Start Date End Date Jacy Aldridge MD [address] [place] [address] PCP - General Family Medicine 01/22/16 documented as of this encounter
--- OUTSIDE RECORDS SUMMARY | 2024-07-06 10:27 | XMS_ITS | Encounter Summary ---
Author Organization [employer] Address [address] [facility] 7t [place] [address] Care Team Providers Care Shook Splicer Name Role Phone Jacy Aldridge MD Primary Care Provider [phone] Reason for Visit * Reason Onset Date Comments ER Follow-up 02/25/2023 Encounter Details Date Type Department Care Team ([facility] st Contact Info) Description 02/25/2023 Telephone [facility] MEDICINE [address] [place] [address] Jacy Aldridge MD [address] [place], [place] [phone] ER Follow-up Social History Tobacco Use Types [...] 02/25/2023 10:46 AM EST Pt dischsrged from [facility] on 02/20/23 for NSTEMI. Returned call to pt COOK DESSERT and COOK DESSERT agrees to HDF appt with provider on 03/07/23. COOK DESSERT states besides minimal dizziness at times, pt denies any CP or other concerns. COOK DESSERT advised to call office if there are any further questions or concerns or return to ED if pt develops SOB or CP. * Telephone Encounter - Steve Gómez - 02/25/2023 10:15 AM EST Tc from patients COOK DESSERT calling to make appt please call Gena at [phone] Patient calling to report ED visit on : 02/25 Date: 02/18 Hospital: [facility] Seen for: Heart Attack Patient advised will forward to team nurse for follow up documented in this encounter Plan of Treatment Upcoming Encounters Date Type Department Care Team (Late st Contact Info) Description 07/14/2024 10:30 AM EDT Office Visit [facility] MED & PEDS [address] [place] [address] Jacy Aldridge MD [address] [place] [address] 09/27/2024 9:45 AM EDT Office Visit [facility] MED & PEDS [address] [place] [address] Asim Sloan MD [address] [place] [address] documented as of this encounter Visit Diagnoses Not on filedocumented in this encounter Care Teams Shook Splicer Relationship Specialty Start Date End Date Jacy Aldridge MD [address] [place] [address] PCP - General Family Medicine 01/22/16 documented as of this encounter
--- OUTSIDE RECORDS SUMMARY | 2024-07-06 10:27 | XMS_ITS | Encounter Summary ---
Author Organization [employer] Address [address] [facility] [address] [place] [address] Care Team Providers Care Can Pusher Name Role Phone Jacy Aldridge MD Primary Care Provider [phone] Encounter Details Date Type Department Care Team (Latest Contact Info) Description 07/05/2024 Travel Social History Tobacco Use Types Packs/Day Years [...] Description 07/14/2024 10:30 AM EDT Office Visit [facility] MED & PEDS [address] [place] [address] Jacy Aldridge MD [address] [place] [address] 09/27/2024 9:45 AM EDT Office Visit [facility] MED & PED[facility] [address] [place] [address] Asim Sloan MD [address] [place] [phone] documented as of this encounter Visit Diagnoses Not on filedocumented in this encounter Additional Health Concerns Assessment Noted Time PHQ-9 Depression Total Score: 2 05/07/19 24 11:32 AM EST documented as of this encounter Care Teams Can Pusher Relationship Specialty Start Date End Date Jacy Aldridge MD [address] [place] [address] PCP - General Family Medicine 01/22/16 documented as of this encounter
--- OUTSIDE RECORDS SUMMARY | 2024-07-06 10:27 | XMS_ITS | Encounter Summary ---
Author Organization [employer] Address [address] [facility] [address] 7[address] [place] [address] Care Team Providers Care Blood Bank Specialist Name Role Phone Jacy Aldridge MD Primary Care Provider [phone] Reason for Visit * Reason Onset Date Comments Med Refill 06/28/2024 Encounter Details Date Type Department Care Team (Late st Contact Info) Description 06/28/2024 Refill [facility] MEDICINE [address] [place] [address] Supriya Esparza, RODOLFO Opioid dependence, uncomplicated (CMS/HCC) Social History Tobacco Use Types Packs/Day Years [...] your housing situation today? I have olivia sing 12/17/[address] you li [...] Description 07/14/2024 10:30 AM EDT Office Visit [facility] MED & PEDS [address] [place] [address] Jacy Aldridge MD [address] [place] [address] 09/27/2024 9:45 AM EDT Office Visit [facility] MED & PEDS [address] [place] [address] Asim Sloan MD [address] [place], [place] [phone] documented as of this encounter Visit Diagnoses Diagnosis Opioid dependence, uncomplicated (CMS/HCC) documented in this encounter Additional Health Concerns Assessment Noted Time PHQ-9 Depression Total Score: 2 05/07/19 24 11:32 AM EST documented as of this encounter Care Teams Blood Bank Specialist Relationship Specialty Start Date End Date Jacy Aldridge MD [address] [place] [address] PCP - General Family Medicine 01/22/16 documented as of this encounter
--- OUTSIDE RECORDS SUMMARY | 2024-07-06 10:27 | XMS_ITS | Encounter Summary ---
Author Organization [employer] Address [address] [facility] 7t [place] [address] Care Team Providers Care Meteorological Equipment Repairer Name Role Phone Jacy Aldridge MD Primary Care Provider [phone] Reason for Visit * Reason Onset Date Comments Appointment Request 05/24/2024 Encounter Details Date Type Department Care Team ([facility] st Contact Info) Description 05/24/[address] [facility] MEDICINE [address] [place], [place] [phone] Jacy Aldridge MD [address] [place], [place] [phone] Appointment Request Social History Tobacco Use Types [...] - 05/24/2024 11:43 AM EDT Tc from [place] with [facility] requesting a call back to schedule OV Extended. Pt las annual 12/26/22 (Pt) documented in this encounter Plan of Treatment Upcoming Encounters Date Type Department Care Team (Late st Contact Info) Description 07/14/2024 10:30 AM EDT Office Visit [facility] MED & PEDS [address] [place] [address] Jacy Aldridge MD [address] [place] [address] 09/27/2024 9:45 AM EDT Office Visit [facility] MED & PEDS [address] [place] [address] Asim Sloan MD [address] [place] [address] documented as of this encounter Visit Diagnoses Not on filedocumented in this encounter Additional Health Concerns Assessment Noted Time PHQ-9 Depression Total Score: 2 05/07/19 24 11:32 AM EST documented as of this encounter Care Teams Meteorological Equipment Repairer Relationship Specialty Start Date End Date Jacy Aldridge MD [address] [place] [address] PCP - General Family Medicine 01/22/16 documented as of this encounter
--- OUTSIDE RECORDS SUMMARY | 2024-07-06 10:27 | XMS_ITS | Encounter Summary ---
Author Organization [employer] Address [address] [facility] 7t [place] [address] Care Team Providers Care Inspector Structural Bonding Name Role Phone Jacy Aldridge MD Primary Care Provider [phone] Reason for Visit * Reason Onset Date Comments Nurse Triage 03/23/2024 Encounter Details Date Type Department Care Team ([facility] st Contact Info) Description 03/23/2024 Telephone [facility] MEDICINE [address] [place], [place] [phone] Jacy Aldridge MD [address] [place], [place] [phone] Nurse Triage Social History Tobacco Use Types [...] 03/23/2024 5:03 PM EST Triage call [place] [facility] [place] [id number], [place]. Pt reports minor rectal bleeding yesterdaydue to constipation and hemorrhoids. Pt reports this happened 2x yesterday and no BM today. Pt denies abdominal pain, weakness. Pt does report that the constipation caused Pt to have to bear down to pass stool and that is what caused the irritation to the hemorrhoid. Pt is advised to come to [facility] today to be seen but, declines. Pt [...] Description 07/14/2024 10:30 AM EDT Office Visit [facility] MED & PEDS [address] [place] [address] Jacy Aldridge MD [address] [place] [address] 09/27/2024 9:45 AM EDT Office Visit [facility] MED & PEDS [address] [place] [address] Asim Sloan MD [address] [place] [phone] documented as of this encounter Visit Diagnoses Not on filedocumented in this encounter Additional Health Concerns Assessment Noted Time PHQ-9 Depression Total Score: 2 05/07/19 24 11:32 AM EST documented as of this encounter Care Teams Inspector Structural Bonding Relationship Specialty Start Date End Date Jacy Aldridge MD [address] [place] [address] PCP - General Family Medicine 01/22/16 documented as of this encounter
--- OUTSIDE RECORDS SUMMARY | 2024-07-06 10:27 | XMS_ITS | Encounter Summary ---
Author Organization [employer] Address [address] [place] [address] Care Team Providers Care Print Shop Manager Name Role Phone Jacy Aldridge MD Primary Care Provider [phone] Reason for Visit * Reason Comments OBAT F/U Encounter Details Date Type Department Care Team (Latest Contact Info) Description 07/05/2024 9:45 AM EDT Office Visit [facility] MED & PEDS [address] [place], [place] [phone] Asim Sloan MD [address] [place], [place] [phone] Opioid dependence, uncomplicated (CMS/HCC) (Primary Dx) Social History Tobacco Use Types Packs/Day Years [...] AM EDT documented as of this encounter Progress Notes * Asim Sloan MD - 07/05/2024 9:45 AM EDT Patient here today for Opioid Dependence RV. Patient on Suboxone dose of 16/4 mg on a bimonthly schedule. Patient has been in the program for 13 years 7 months, since 12/25/10. Pt is seeing counselorBrenda from [facility] [place] ([facility] who comes to her house every two weeks. Sees psychiatrist, Barbie Chapin, as well. [place] CHAUDHARY reviewed by provider. PCP (last appt 05/07/23) LFTs: Completed 07/07/2023 COVID VACCINTED LAST OBAT VISIT 05/10/2024 UTOX: POS BUP, THC NEG FOR ALL OTHER SUBSTANCES Patient presents for OUD OBAT visit States she is doing well with Buprenorphine treatment Denies relapse/cravings States she is worried because her son is missing in [place] Long history of OBAT care; known to this provider from previous MAT clinic Patient currently on Suboxone dose of 16/4 mg on a monthly schedule; states doing well at current dose now Suboxone dosing schedule and management of side effects reviewed Recovery support, harm reduction, and behavioral health attendance reviewed Patient expressed understanding and agreement with continuing plan of care Follow up in 8 weeks TODAY OBAT VISIT 07/05/2024 UTOX: POS BUP, THC NEG FOR ALL OTHER SUBSTANCES Patient presents for OUD OBAT visit States she is doing well with Buprenorphine treatment Denies relapse/cravings States she is worried because her son is missing in [place] Long history of OBAT care; known to this provider from previous MAT clinic Patient currently on Suboxone dose of 16/4 mg on a monthly schedule; states doing well at current dose now Suboxone dosing schedule and management of side effects reviewed Recovery support, harm reduction, and behavioral health attendance reviewed Patient expressed understanding and agreement with continuing plan of care Follow up in 12 weeks once (due to provider unavailability) Review of Systems Psychiatric/Behavioral: Negative for behavioral problems and dysphoric mood. The patient is not nervous/anxious. Physical Exam Constitutional: Appearance: Normal appearance. Pulmonary: Effort: Pulmonary effort is normal. Neurological: Mental Status: She is alert. Psychiatric: Mood and Affect: Mood normal. Behavior: Behavior normal. Cinthya was seen today for obat f/u . Diagnoses and all orders for this visit: Opioid dependence, uncomplicated (CMS/HCC) (Primary) - POCT JAMES-14 Urine Drug Screen Patient presents for OUD OBAT visit Patient is tolerating current treatment of Buprenorphine/Naloxone SL Discussed behavioral modification and accessing services Counseling provided with a focus on support system, tools for achieving/maintaining recovery Reviewed barriers for these goals Discussed strategies to address when faced situations that may trigger use Continue with current visit schedule Narcan use discussed [place] reviewed Reviewed risk assessment for family planning, STI and PrEP Follow up in 12 weeks This information has been disclosed to you from records protected by federal confidentiality rules (42 CFR Part 2). The federal rules prohibit you from making any further disclosure of information inthis record that identifies a patient as having or having had a substance use disorder either directly, by reference to publicly available information, or through verification of such identification by another person unless further disclosure is expressly permitted by the written consent of the individual whose information is being disclosed or as otherwise permitted by (see2.3.1). The federal rules restrict any use of the information to investigate or prosecute with regard to a crime any patient with a substance use disorder, except as provided at 2.12??(5) and 2.65. documented in this encounter Plan of Treatment Upcoming Encounters Date Type Department Care Team (Late st Contact Info) Description 07/14/2024 10:30 AM EDT Office Visit [facility] MED & PEDS [address] [place] [address] Jacy Aldridge MD [address] [place] [address] 09/27/2024 9:45 AM EDT Office Visit [facility] MED & PEDS [address] [place] [address] Asim Sloan MD [address], [place] [phone] documented as of this encounter Procedures Procedure Name Priority Date/Time Associated Diagnosis Comments POCT JAMES-14 URINE DRUG SCREEN Routine 07/05/2024 9:18 AM EDT Opioid dependence, uncomplicated (CMS/HCC) documented in this encounter Results * POCT JAMES-14 Urine Drug Screen (07/05/2024 9:18 AM EDT) THC Positive Cocaine Screen, Urine Negative Opiate Screen, Urine Negative Methamphetamine Screen Urine Negative Amphetamine Screen, Urine Negative Benzodiazepines Screen, Urine Negative Barbiturate Screen, Urine Negative Methadone Screen, Urine Negative Buprenophine Screen, Urine Positive TCA, Urine Negative MDMA Urine Negative ng/mL Oxycodone Screen, Urine Negative Phencyclidine (PCP), Urine Negative Fentanyl, Urine Negative Urine Urine specimen obtained by clean catch procedure / Unknown 07/05/2024 9:18 AM EDT Asim Sloan MD POINT OF CARE TEST ENTER/EDIT OR DERABLES Final Result documented in this encounter Visit Diagnoses Diagnosis Opioid dependence, uncomplicated (CMS/HCC)- Primary documented in this encounter Additional Health Concerns Assessment Noted Time PHQ-9 Depression Total Score: 2 05/07/19 24 11:32 AM EST documented as of this encounter Care Teams Print Shop Manager Relationship Specialty Start Date End Date Jacy Aldridge MD [address] [place] [address] PCP - General Family Medicine 01/22/16 documented as of this encounter
--- OUTSIDE RECORDS SUMMARY | 2024-07-06 10:27 | XMS_ITS | Encounter Summary ---
Author Organization [facility] [employer] [facility] Address [address] [place] [address] 7t [place] [address] Care Team Providers Care Granulizing Machine Operator Name Role Phone Jacy Aldridge MD Primary Care Provider [phone] Reason for Visit * Reason Comments Med Refill Encounter Details Date Type Department Care Team ([facility] Contact Info) Description 10/26/2022 Refill [facility] MEDICINE [address] [place] [phone] Jacy Aldridge MD [address] [place], [place] [phone] Social History Tobacco Use Types Packs/Day Years [...] Upcoming Encounters Date Type Department Care Team ([facility] Contact Info) Description 07/14/2024 10:30 AM EDT Office Visit [facility] MED & PEDS [address] [place], [place] [phone] Jacy Aldridge MD [address] [place], [place] [phone] 09/27/2024 9:45 AM EDT Office Visit [facility] MED & PEDS [address], [place] [phone] Asim Sloan MD [address] [place] [address] documented as of this encounter Visit Diagnoses Not on filedocumented in this encounter Care Teams Granulizing Machine Operator Relationship Specialty Start Date End Date Jacy Aldridge MD [address] [place] [address] PCP - General Family Medicine 01/22/16 documented as of this encounter
--- OUTSIDE RECORDS SUMMARY | 2024-07-06 10:27 | XMS_ITS | Encounter Summary ---
Author Organization [employer] Address [address] [place] [address] Care Team Providers Care Business Intelligence Director Name Role Phone Jacy Aldridge MD Primary Care Provider [phone] Reason for Visit * Reason Onset Date Comments Med Refill 06/28/2024 Encounter Details Date Type Department Care Team (Late st Contact Info) Description 06/28/2024 Refill [facility] MEDICINE [address] [place] [address] Supriya Esparza, RODOLFO Social History Tobacco Use Types Packs/Day Years [...] Description 07/14/2024 10:30 AM EDT Office Visit [facility] MED & PEDS [address] [place] [address] Jacy Aldridge MD [address] [place] [address] 09/27/2024 9:45 AM EDT Office Visit [facility] MED & PEDS [address] [place] [address] Asim Sloan MD [address] [place] [address] documented as of this encounter Visit Diagnoses Not on filedocumented in this encounter Additional Health Concerns Assessment Noted Time PHQ-9 Depression Total Score: 2 05/07/19 24 11:32 AM EST documented as of this encounter Care Teams Business Intelligence Director Relationship Specialty Start Date End Date Jacy Aldridge MD [address] [place] [address] PCP - General Family Medicine 01/22/16 documented as of this encounter
--- OUTSIDE RECORDS SUMMARY | 2024-07-06 10:27 | XMS_ITS | Clinical Summary ---
Author Organization [employer] Address [address] 7t [place] [address] Care Team Providers Care Dye Range Operator Cloth Name Role Phone Jacy Aldridge MD Primary Care Provider [phone] Allergies No known active allergies Medications * [...] THREE TIMES DAILY NEEDED 90 mL Active Ventolin HFA 108 (90 Base) MCG/ACT inhaler INHALE TWO PUFFS EVERY 6 HOURS NEEDED FOR WHEEZING 18 g 2 Active nicotine (Nicoderm CQ) 14 MG/24HR patch Place 1 patch on the skin 1 (one) time each day at the same time. 42 patch 025 2024 Active nicotine (Nicoderm CQ) 7 MG/24HR patch Place 1 patch on the skin 1 (one) time each day at the same time. 14 patch Active nicotine polacrilex (Commit) 2 MG lozenge Dissolve 1 lozenge (2 mg) in the mouth if needed for smoking cessation. 100 lozenge Active Blood Pressure kit 1 each 2 times daily. Call [facility] if BP readings are > 140/90 1 kit 025 2025 Active Buprenorphine HCl-Naloxone HCl (Suboxone) 8-2 MG SL filmIndications: Opioid dependence, uncomplicated (CMS/HCC) Place 2 Film under the tongue Once per day. Do not start before July 05, 2024. 56 Film 1 025 2024 Active Buprenorphine HCl-Naloxone HCl (Suboxone) 8-2 MG SL filmIndications: Opioid dependence, uncomplicated (CMS/HCC) Place 2 Film under the tongue Once per day. Do not start before May 10, 2024. 56 Film 1 025 2024 Discontinued(R eorder (will not trigger notification to Pharmacy)) Hospital, Clinic, or Other Facility Administered Medication Ordered Dose Route Frequency Start Date End Date Status aspirin chewable tablet 324 mgIndications:Chest pain, unspecified type 324 mg PO Once 05/26/2024 Active Active Problems Problem Noted Date Diagnosed Date Tobacco dependence 05/26/2024 NSTEMI (non-ST elevated myocardial infarction) 0 05/07/2023 Takotsubo cardiomyopathy 05/07/2023 Moderate recurrent major depression 10/10/2017 Gastroesophageal reflux disease 08/29/2011 Vitamin D deficiency 08/29/2011 Continuous opioid dependence 06/25/2011 Acute hepatitis C 06/20/2011 Anxiety state 06/20/2011 Depressive disorder 06/20/2011 Pure hypercholesterolemia 06/20/2011 Encounters Date Type Department Care Team Description 07/05/2024 9:45 AM EDT Office Visit [facility] MED & PEDS [address] [place] [address] Asim Sloan MD Opioid dependence, uncomplicated (CMS/HCC) (Primary Dx) 07/05/2024 Travel 06/28/2024 Refill [facility] MEDICINE [address] [place] [address] Supriya Esparza, RODOLFO Opioid dependence, uncomplicated (CMS/HCC) 06/28/2024 Refill [facility] MEDICINE [address] [place] [address] Supriya Esparza, RODOLFO 06/28/2024 Refill [facility] MEDICINE [address] [place] [address] Supriya Esparza, RODOLFO Opioid dependence, uncomplicated (CMS/HCC) 06/10/2024 Telephone [facility] MEDICINE [address] [place] [address] Jacy Aldridge MD 06/08/2024 Orders Only [facility] MED & PEDS [address] [place] [address] Jacy Aldridge MD Moderate recurrent major depression (CMS/HCC) (Primary Dx) 06/07/2024 Telephone [facility] MEDICINE [address] [place] [address] Jacy Aldridge MD med request 05/28/2024 Orders Only [facility] WALK[facility] [address] [place] [address] Jake Fulton MD 05/28/2024 Telephone [facility] [address] [place] [phone] Jake Fulton MD Results 05/27/2024 Telephone [facility] [address] [place] [phone] Claire Murphy, RODOLFO Results 05/26/2024 11:00 AM EDT Office Visit [facility] [address] [place] [phone] Jake Fulton MD Dysuria (Primary Dx); Chest pain, unspecified type; Elevated blood pressure reading in office without diagnosis of hypertension; Vaginal itching 05/24/2024 Telephone [facility] MEDICINE [address] [place] [address] Jacy Aldridge MD Appointment Request 05/21/2024 Telephone [facility] [address] [place] [address] Jacy Aldridge MD No Show 05/21/2024 Refill [facility] [address] [place] [address] Jacy Aldridge MD 05/20/2024 Telephone [facility] MEDICINE [address] [place] [address] Jacy Aldridge MD Nurse Triage 05/20/2024 Telephone [facility] MEDICINE [address] [place] [address] Jacy Aldridge MD Fyi 05/10/2024 9:45 AM EDT Office Visit [facility] P[facility] [address] [place] [address] Asim Sloan MD Opioid type dependence, continuous (CMS/HCC) (Primary Dx) 05/10/2024 Travel 05/03/2024 Refill [facility] MEDICINE [address] [place] [phone] Supriya Esparza, RODOLFO Opioid dependence, uncomplicated (CMS/HCC) from Last 3 Months Immunizations Name Administration [...] Description 07/14/2024 10:30 AM EDT Office Visit [facility] PED[facility] [address] [place] [address] Jacy Aldridge MD [address] [place] [address] 09/27/2024 9:45 AM EDT Office Visit [facility] PED[facility] [address] [place] [address] Asim Sloan MD [address] [place] [address] Health Maintenance Due Date Last Done Comments [...] 9:18 AM EDT Opioid dependence, uncomplicated (CMS/HCC) ECG 12-LEAD Routine 05/26/2024 2:26 PM EDT [...] Recently Relevant to Health Maintenance Results * POCT JAMES-14 Urine Drug Screen (07/05/2024 9:18 AM EDT) Only the most recent of2 resultswithin the time period is included. THC Positive Cocaine Screen, Urine Negative Opiate [...] TEST ENTER/EDIT OR DERABLES Final Result * (ABNORMAL) Bacterial Vaginosis Panel (05/26/2024 11:25 AM EDT) TRICHOMONAS VAGINALIS DETECTION BY PCR NOT DETECTED Not Detect [facility] BACTERIAL VAGINOSIS DETECTION BY PCR POSITIVE(A) Negative [facility] Comment:The BV organism targ ets [...] DETECTION BY PCR NOT DETECTED Not Detect [facility] Zahra glab krusei PCR NOT DETECTED Not Detect [facility] Swab Vaginal structure / Unknown 05/26/2024 11:25 AM EDT 05/26/2024 5:03 PM EDT Jake Fulton MD LAB MICROBIOLOGY - GENERAL ORDER TERRANCE Final Result [facility] [address] [place] [phone] * Chlamydia/N. Gonorrhoeae RNA, TMA, Urogenitial (05/26/2024 11:25 AM EDT) Pathologist [facility] PCR NOT DETECTED Not Detect. [facility] Comment:A not detected test result [...] psychologicalconsequences. NG PCR NOT DETECTED Not Detect. [facility] Comment:A not detected test result [...] 11:25 AM EDT 05/26/2024 5:03 PM EDT [facility] - 05/26/2024 8:04 PM EDT Vaginal Jake Fulton MD LAB MICROBIOLOGY - GENERAL ORDER TERRANCE Final Result [facility] [address] [place] [phone] * Culture, Urine, Routine (05/26/2024 11:25 AM EDT) Urine Urine specimen obtained by clean catch procedure / Unknown 05/26/2024 11:25 AM EDT 05/26/2024 4:50 PM EDT Comment:[facility] - 05/28/2024 7:42 AM EDT Escherichia coli Quant 50,000 to 100,000 cfu/mL Escherichia coli: Ampicillin <=2(S) Escherichia coli: Cefazolin (Urine) <=1(S) Escherichia coli: Cefepime <=0.12(S) Escherichia coli: Ceftriaxone <=0.25(S) Escherichia coli: Ciprofloxacin <=0.06(S) Escherichia coli: Gentamicin <=1(S) Escherichia coli: Nitrofurantoin <=16(S) Escherichia coli: Trimethoprim/Sulfamethoxazole <=20(S) Specimen Source: Urine clean catch Jake Fulton MD LAB MICROBIOLOGY - GENERAL ORDER TERRANCE Final Result [facility] [address] [facility] [place] [address] [phone] * (ABNORMAL) POCT urinalysis dipstick manually resulted (05/26/2024 11:23 AM EDT) Color, UA Collier Clarity, UA Clear Glucose, UA Negative Bilirubin, [...] EDT Narrative 09/23/2023 9:55 PM EDT ? [facility] [place] ? [address] [facility] ?[place] [address] ? Mammography Report ? Signed ? Patient: Mayda Abrahamira,Cinthya ?MR#: [id number] ?? [id number] ? : 1955 ?Acct:[id number] ? Age/Sex: 68 / F ?ADM Date: 07/03/24 ? Loc: HO.MAMMO ? Attending Dr: Jacy Aldridge MD ? Ordering Physician: Jacy Aldridge MD ?Results: 1Ne ?? gative ? Date of Service: 09/03/23 ?Follow Up: 1 Year From Orig ?? inal Mammogram ? Procedure(s): MM tomosynthesis screening BI ?? Accession Number(s): [id number] ? cc: Jacy Aldridge MD ? EXAMINATION: [...] 2151 ? DD/ 1205 ? TD/TT: ? Slip Cover Operator: ? Procedure Note Donotaliceinterpreter, Image - 09/23/2023 [place] [address] [place], [place] [address] Mammography Report Signed Patient: Ning TayR#: Ailx [id number] : 8Acct:[id number] Age/Sex: 68 / FADM Date: 09/03/23 Loc: HO.MAMMO Attending Dr: Jacy Aldridge MD Ordering Physician: Jacy Aldridge MDResults: 1Ne gative Date of Service: 09/03/23Follow Up: 1 Year From Orig inal Mammogram Procedure(s): MM tomosynthesis screening BI Accession Number(s): [id number] cc: Jacy Aldridge MD EXAMINATION: MM SCREENING [...] in OV> 09/23/23 2151 DD/ 1205 TD/TT: Slip Cover Operator: us Jacy Aldridge MD IMG BI PROCEDURES Final Resul t * Lipid Panel, Standard (07/07/2023 10:40 AM EDT) Triglycerides 59 <150 mg/dL [facility] Comment:Desirable Triglyceri de: less than 150 mg/dLBorderline High Triglyceride 150-199 mg/dLHigh Triglyceride: 200-499 mg/dLVery High Triglyceride: greater than or equal to 5OO mg/dL Cholesterol 142 <200 mg/dL [facility] Comment:Desirable Cholestero l: less than 200 mg/dLBorderline High Cholesterol: 200-239 mg/dLHigh Cholesterol: greater than 239 mg/dL LDL Cholesterol Calculated 76 <100 mg/dL [facility] Comment:Desirable LDL: less than 100 mg/dLNear Optimal/Above Optimal LDL: 110- 129 mg/dLBorderline High LDL: 130-159 mg/dLHigh LDL: 160-189 mg/dLVery High LDL: greater than or equal to 190 mg/dL HDL Cholesterol 55 >40 mg/dL [facility] Comment:Desirable HDL: great er than 40 mg/dL Note: This HDL assay may give artificially low results in patients with liver disease. 07/07/2023 10:4 0 AM EDT 07/07/2023 10:40 AM EDT us Generic External Data Provider LAB BLOOD ORDERAB LES Final Result Performing Organization Address City/State/[facility] Co de Phone Number [facility] [address] [place] [phone] from Last 3 Months or Most Recently Relevant to Health Maintenance Insurance [facility] LONG-TERM OPTIONS (O D-SNP) Care Teams Dye Range Operator Cloth Relationship Specialty Start Date End Date Jacy Aldridge MD [address] [place] [address] [address] PCP - General Family Medicine 01/22/16
--- OUTSIDE RECORDS SUMMARY | 2024-07-06 10:27 | XMS_ITS | Encounter Summary ---
Author Organization [employer] Address [address] [facility] 7t [place] [address] Care Team Providers Care Supervisor Nuclear Medicine Name Role Phone Jacy Aldridge MD Primary Care Provider [phone] Reason for Visit * Reason Onset Date Comments med request 06/07/2024 Encounter Details Date Type Department Care Team ([facility] st Contact Info) Description 06/07/2024 Telephone [facility] MEDICINE [address] [place], [place] [phone] Jacy Aldridge MD [address] [place], [place] [phone] med request Social History Tobacco Use Types Packs/Day Years [...] encounter Miscellaneous Notes * Telephone Encounter - Pearl Simon RN - 06/08/2024 10:17 AM EDT TC to pt using otolaryngology teacher services. Pt answered phone and stated she was shopping at grocery store. Pt stated feeling fine, stated taking wrong medication couple days ago, visiting nurse came to house and said would ask PCP for med box. Pt expressed wanting medication boxes. Pt denies any symptoms of dizziness or confusion. Author advised if pt has future questions to contact office. Pt verbalized understating and agreement with plan. * Telephone Encounter - Pearl Simon RN - 06/07/2024 3:40 PM EDT TC to [facility] [place] to obtain information if wrong medication was taken just now, or if historical event, and to see if pt is still experiencing symptoms. Spoke with millwright supervisor Rosalie who stated that Jayashree is not a nurse she is familiar with at all adult day health locations of [facility] and believes Jayashree is home care nurse and Rosalie stated will notify [employer]wright supervisor of home care to reach out to office. Office phone number given. * Telephone Encounter - Jamil Montgomery - 06/07/2024 2:42 PM EDT Tc from Jayashree with [facility] notifying pt recently took the wrong medication by mistake and experienced symptoms such as dizziness and confusion. Jayashree to help prevent this from happening again and to ensure medication safety requests that future medications be provided in bubble packs. If any questions please contact [phone] documented in this encounter Plan of Treatment Upcoming Encounters Date Type Department Care Team (Late st Contact Info) Description 07/14/2024 10:30 AM EDT Office Visit [facility] MED & PEDS [address] [place] [address] Jacy Aldridge MD [address] [place] [address] 09/27/2024 9:45 AM EDT Office Visit [facility] MED [facility] PEDS [address] [place], [place] [phone] Asim Sloan MD [address] [place] [phone] documented as of this encounter Visit Diagnoses Not on filedocumented in this encounter Additional Health Concerns Assessment Noted Time PHQ-9 Depression Total Score: 2 05/07/19 24 11:32 AM EST documented as of this encounter Care Teams Supervisor Nuclear Medicine Relationship Specialty Start Date End Date Jacy Aldridge MD [address] [place] [address] PCP - General Family Medicine 01/22/16 documented as of this encounter
--- OUTSIDE RECORDS SUMMARY | 2024-07-06 10:27 | XMS_ITS | Encounter Summary ---
Author Organization [employer] Address 75 [facility] 7t [place] [address] Care Team Providers Care Social Science Analyst Name Role Phone Jacy Aldridge MD Primary Care Provider [phone] Reason for Visit * Reason Onset Date Comments Appointment Request 03/27/2022 Encounter Details Date Type Department Care Team ([facility] Contact Info) Description 03/27/2022 Telephone [facility] [address] [place], [place] [phone] Jacy Aldridge MD [address] [place], [place] [phone] Appointment Request Social History Tobacco Use Types [...] encounter Miscellaneous Notes * Telephone Encounter - Mahsarajinder Sy Janine - 03/27/2022 12:13 PM EST Tc from Amparo a case manger requesting an appt for patient for a Physical, Amparo states without the physical she cannot get some paperwork that she needs. Account Executive Agribusiness try to book appt but provider did not have anything open. If any question please contact amparo at [phone] documented in this encounter Plan of Treatment Upcoming Encounters Date Type Department Care Team (Late st Contact Info) Description 07/14/2024 10:30 AM EDT Office Visit [facility] MED & PEDS [address] [place] [address] Jacy Aldridge MD [address] [place], [place] [phone] 09/27/2024 9:45 AM EDT Office Visit [facility] MED & PEDS [address] [place], [place] [phone] Asim Sloan MD [address] [place] [address] [phone] documented as of this encounter Visit Diagnoses Not on filedocumented in this encounter Care Teams Social Science Analyst Relationship Specialty Start Date End Date Jacy Aldridge MD [address] [place] [address] PCP - General Family Medicine 01/22/16 documented as of this encounter
--- OUTSIDE RECORDS SUMMARY | 2024-07-06 10:27 | XMS_ITS | Encounter Summary ---
Author Organization [employer] Address 75 [facility] 7t [place] [address] Care Team Providers Care Make Ready Mechanic Name Role Phone Jacy Aldridge MD Primary Care Provider [phone] Reason for Visit * Reason Onset Date Comments Appointment Request 10/28/2022 Encounter Details Date Type Department Care Team (Late Contact Info) Description 10/28/2022 Telephone [facility] [address] [place], [place] [phone] Jacy Aldridge MD 505 [place], [place] [phone] Appointment Request Social History Tobacco Use Types [...] in a year. Please contact pt at [phone] Irish Speaker documented in this encounter Plan of Treatment Upcoming Encounters Date Type Department Care Team (Late Contact Info) Description 07/14/2024 10:30 AM EDT Office Visit [facility] MED & PEDS [address] [place] [address] Jacy Aldridge MD [address] [place] [address] 09/27/2024 9:45 AM EDT Office Visit [facility] MED & PEDS [address] [place] [address] Asim Sloan MD [address] [place] [address] documented as of this encounter Visit Diagnoses Not on filedocumented in this encounter Care Teams Make Ready Mechanic Relationship Specialty Start Date End Date Jacy Aldridge MD [address] [place] [address] PCP - General Family Medicine 01/22/16 documented as of this encounter
== END 2024-07-06 10:38 | disposition home or self-care (01) ==
LOC: HO.HCS 09:29
PROVIDERS: PCP Pediatrics; Visit Provider Nurse Practitioner Family
DX: I21.4 Non-ST elevation (NSTEMI) myocardial infarction (principal); I10 Essential (primary) hypertension; I51.81 Takotsubo syndrome; Z98.890 Other specified postprocedural states
CPT/HCPCS: 93010; 99214; G2211

== ENCOUNTER → 2024-07-06 09:29 | Outpatient (BNVA) | payer OTHER, SELFPAY | PROVIDERS: PCP Pediatrics; Visit Provider Nurse Practitioner Family | DX: I25.2 Old myocardial infarction (principal); I10 Essential (primary) hypertension; I51.81 Takotsubo syndrome; Z98.890 Other specified postprocedural states; R00.1 Bradycardia, unspecified | CPT/HCPCS: 93005; 99212 ==

== ENCOUNTER 2024-07-14 11:15 | Outpatient (REF) | payer OTHER, SELFPAY ==
--- OUTSIDE RECORDS SUMMARY | 2024-07-14 12:17 | XMS_ITS | Encounter Summary ---
Author Organization [employer] Address [address] [facility] [address] 7t [place] [address] Care Team Providers Care Emt B Name Role Phone Jacy Aldridge MD Primary Care Provider [phone] Reason for Visit * Reason Onset Date Comments Med Refill 06/28/2024 Encounter Details Date Type Department Care Team (Late st Contact Info) Description 06/28/2024 Refill [facility] MEDICINE [address] [place] [address] Supriya Esparza, RODOLFO Opioid dependence, uncomplicated (CMS/HCC) [...] Care Team (Late st Contact Info) Description 09/27/2024 9:45 AM EDT Office Visit [facility] MED & PEDS [address] [place] [address] Asim Sloan MD [address] [place] [address] 10/14/2024 10:15 AM EDT Office Visit [facility] MED & PEDS [address] [place] [address] Jacy Aldridge MD 505 [place] [address] documented as of this encounter Visit Diagnoses Diagnosis Opioid dependence, uncomplicated (CMS/HCC) documented in this encounter Additional Health Concerns Assessment Noted Time PHQ-9 Depression Total Score: 2 05/07/19 24 11:32 AM EST documented as of this encounter Care Teams Emt B Relationship Specialty Start Date End Date Jacy Aldridge MD 505 [place] [address] PCP - General Family Medicine 01/22/16 documented as of this encounter
--- OUTSIDE RECORDS SUMMARY | 2024-07-14 12:17 | XMS_ITS | Encounter Summary ---
Author Organization [employer] Address 75 [facility] 7t [place] [address] Care Team Providers Care Bundle Helper Name Role Phone Jacy Aldridge MD Primary Care Provider [phone] Reason for Visit * Reason Onset Date Comments FYI 09/16/2023 Encounter Details Date Type Department Care Team ([facility] st Contact Info) Description 09/16/2023 Telephone [facility] MEDICINE [address] [place], [place] [phone] Jacy Aldridge MD [address] [place], [place] [phone] FYI Social History Tobacco Use Types Packs/Day [...] EDT Tc from Rosalie, Nurse practitioner with [facility], wants to inform pcp pt is not consistently refilling or taking her medication. The only medication pt is taking consistently is the suboxone. If any questions for Rosalie please contact her at [phone] ext [phone]. documented in this encounter Plan of Treatment Upcoming Encounters Date Type Department Care Team (Late st Contact Info) Description 09/27/2024 9:45 AM EDT Office Visit [facility] MED & PEDS [address] [place] [address] Asim Sloan MD [address] [place] [address] 10/14/2024 10:15 AM EDT Office Visit [facility] MED & PEDS [address] [place] [address] Jacy Aldridge MD 505 [place] [address] documented as of this encounter Visit Diagnoses Not on filedocumented in this encounter Additional Health Concerns Assessment Noted Time PHQ-9 Depression Total Score: 2 05/07/19 24 11:32 AM EST documented as of this encounter Care Teams Bundle Helper Relationship Specialty Start Date End Date Jacy Aldridge MD 505 [place] [address] PCP - General Family Medicine 01/22/16 documented as of this encounter
--- OUTSIDE RECORDS SUMMARY | 2024-07-14 12:17 | XMS_ITS | Encounter Summary ---
Author Organization [employer] Address [address] [place] [address] [address] [place] [address] Care Team Providers Care Sheet Metal Layout Worker Name Role Phone Jacy Aldridge MD Primary Care Provider [phone] Reason for Referral * Consultation (Routine) - Authorized Specialty Diagnoses / Procedures Referred By Kimmie mills Referred To Contact Behavioral Health Diagnoses Depressive disorder Jacy Aldridge MD [address] [place] [address] Phone: tel: fax: Referral ID Status Reason Start Date Expiration Date Visits Requested Visits Authorized [id number] Authorized Specialty Services Required 07/14/2024 07/14/2025 1 1 Reason for Visit * Reason Comments Annual Exam Encounter Details Date Type Department Care Team (Latest Contact Info) Description 07/14/2024 10:30 AM EDT Office Visit [facility] MED & PEDS [address] [place], [place] [phone] Jacy Aldridge MD [address] [place], [place] [phone] Takotsubo cardiomyopathy (Primary Dx); Continuous opioid dependence (CMS/HCC); Pure hypercholesterolemia; Screening for colon cancer; Routine general medical examination at a health care facility; Depressive disorder Social History Tobacco Use Types Packs/Day Years Used Date Smoking Tobacco: Every Day Cigarettes Smokeless Tobacco: Never Comments:Smokes an average o f 2 cig a day. Used to smoke 1 ppd until last year. Depression Answer Date Recorded Patient Health Questionnaire-9 Score 21 07/14/2024 Patient Health Questionnaire-9 Score 21 07/14/2024 Last PHQ-9: Questionnaire Data Not on file 0 07/14/2024 Housing Stability Answer Date Recorded What is your housing situation today? I have olivia rush 07/14/[address] you li ve. Do you have problems with any of the following? Pests such as bugs, ants, or mice;Lead [place] or Pipes 07/14/2024 Food Insecurity Answer Date Recorded Within the past 12 months, y ou worried that your food would run out before you got money to buy more: Never True 07/14/2024 Within the past 12 months,th e food you bought just didn't last and you didn't have enough money to get more: Never True Transportation Answer Date Recorded In the past 12 months, has l ack of transportation kept you from medical appts, meetings, work or from getting things needed for daily living? No 07/14/2024 Utilities Answer Date Recorded In the past 12 months, has t he electric, gas, oil or water company threatened to shut off services in your home? No 07/14/2024 Depression Answer Date Recorded Patient Health Questionnaire-2 Score 6 07/14/2024 Internet Access Answer Date Recorded Internet Access Q1 Yes 07/14/2024 Internet Access Q2 Not on file 07/14/2024 Comments Unknown Sex and Gender Information Value Date Recorded Sex Assigned at Female 12/31/2021 10:16 AM EDT Legal Sex Female 10:16 AM EDT Gender Identity Female 12/31/2021 10:16 AM EDT Sexual Orientation Straight 12/31/2021 10 :16 AM EDT documented as of this encounter Last Filed Vital Signs Vital Sign Reading Time Taken Comments Blood Pressure 159/73 07/14/2024 10:36 AM EDT Pulse 66 07/14/2024 10:36 AM EDT Temperature 36.7 ??C (98.1 ??F) 07/14/2024 10:36 AM E DT Respiratory Rate 16 07/14/2024 10:36 AM EDT Oxygen Saturation 98% 07/14/2024 10:36 AM EDT Inhaled Oxygen Concentration - - Weight 55.8 kg (123 lb) 07/14/2024 10:36 AM EDT Height 160 cm (5' 3 ) 07/14/2024 10:36 AM EDT Body Mass Index 21.79 07/14/2024 10:36 AM EDT documented in this encounter Functional Status * Over the past 2 weeks, how often have you been bothered by any of the following problems? Question Answer Date of Assessment Author Patient Health Questionnaire -2 Score 6 07/14/2024 11:11 AM EDT Sa deisy Fields [place] * Little interest or pleasure in doing things Answer Date of Assessment Author Nearly every day 07/14/2024 11:11 AM EDT Zuly Cartagena [place] * Feeling down, depressed, or hopeless Answer Date of Assessment Author Nearly every day 07/14/2024 11:11 AM EDT Zuly Cartagena [place] * Trouble falling or staying asleep, or sleeping too much Answer Date of Assessment Author Several days 07/14/2024 11:11 AM EDT Zuly Bar [place] * Feeling tired or having little energy Answer Date of Assessment Author Nearly every day 07/14/2024 11:11 AM CRYSTALT Zuly Cartagena [place] * Poor appetite or overeating Answer Date of Assessment Author Nearly every day 07/14/2024 11:11 AM EDT Zuly Cartagena [place] * Feeling bad about yourself - or that you are a failure or have let yourself or your family down Answer Date of Assessment Author Nearly every day 07/14/2024 11:11 AM CRYSTALT Zuly Cartagena [place] * Trouble concentrating on things, such as reading the newspaper or watching television Answer Date of Assessment Author More than half the days 07/14/2024 11:11 AM EDT Zuly Fields [place] * Moving or speaking so slowly that other people could have noticed? Or the opposite - being so fidgety or restless that you have been moving around a lot more than usual. Answer Date of Assessment Author More than half the days 07/14/2024 11:11 AM Zuly Copeland [place] * Thoughts that you would be better off or hurting yourself in some way Answer Date of Assessment Author Several days 07/14/2024 11:11 AM CRYSTALT Zuly Bar [place] * Patient Health Questionnaire-9 Score Answer Date of Assessment Author 07/14/2024 11:11 AM EDT Zuly Bar [place] * How difficult have these problems made it for you to do your work, take care of things at home, or get along with other people? Answer Date of Assessment Author Very difficult 07/14/2024 11:11 AM EDT Zuly Bar [place] documented as of this encounter Plan of Treatment Upcoming Encounters Date Type Department Care Team (Late st Contact Info) Description 09/27/2024 9:45 AM EDT Office Visit [facility] MED & PEDS [address] [place] [address] Asim Sloan MD [address] [place] [address] 10/14/2024 10:15 AM EDT Office Visit [facility] MED & PEDS [address] [place] [address] Jacy Aldridge MD [address] [place], [place] [phone] Scheduled Orders Name Type Priority Associated Diagnoses Orde r Schedule Albumin, Random Urine W/Creatinine Lab Routine Takotsubo cardiomyopathy Continuous opioid dependence (CMS/HCC) Pure hypercholesterolemia Screening for colon cancer Routine general medical examination at a health care facility Expected: 07/14/2024 (Approximate), Expires: 07/14/2025 Basic Metabolic Panel, Fasting Lab Routine Takotsubo cardiomyopathy Continuous opioid dependence (CMS/HCC) Pure hypercholesterolemia Screening for colon cancer Routine general medical examination at a health care facility Expected: 07/14/2024 (Approximate), Expires: 07/14/2025 CBC auto differential Lab Routine Takotsubo cardiomyopathy Continuous opioid dependence (CMS/HCC) Pure hypercholesterolemia Screening for colon cancer Routine general medical examination at a health care facility Expected: 07/14/2024 (Approximate), Expires: 07/14/2025 Cologuard?? colon cancer screening Lab Routine Takotsubo cardiomyopathy Continuous opioid dependence (CMS/HCC) Pure hypercholesterolemia Screening for colon cancer Routine general medical examination at a health care facility Ordered: 07/14/2024 C-reactive Protein Lab Routine Takotsubo cardiomyopathy Continuous opioid dependence (CMS/HCC) Pure hypercholesterolemia Screening for colon cancer Routine general medical examination at a health care facility Expected: 07/14/2024 (Approximate), Expires: 07/14/2025 Hepatic Function Panel Lab Routine Takotsubo cardiomyopathy Continuous opioid dependence (CMS/HCC) Pure hypercholesterolemia Screening for colon cancer Routine general medical examination at a health care facility Expected: 07/14/2024 (Approximate), Expires: 07/14/2025 Vitamin D, 25-Hydroxy, Total, Immunoassay Lab Routine Takotsubo cardiomyopathy Continuous opioid dependence (CMS/HCC) Pure hypercholesterolemia Screening for colon cancer Routine general medical examination at a health care facility Expected: 07/14/2024 (Approximate), Expires: 07/14/2025 Vitamin B12/Folate, Serum Panel Lab Routine Takotsubo cardiomyopathy Continuous opioid dependence (CMS/HCC) Pure hypercholesterolemia Screening for colon cancer Routine general medical examination at a health care facility Expected: 07/14/2024, Expires: 07/14/2025 TSH W/Reflex to FT4 Lab Routine Takotsubo cardiomyopathy Continuous opioid dependence (CMS/HCC) Pure hypercholesterolemia Screening for colon cancer Routine general medical examination at a health care facility Expected: 07/14/2024 (Approximate), Expires: 07/14/2025 Lipid Panel, Standard Lab Routine Takotsubo cardiomyopathy Continuous opioid dependence (CMS/HCC) Pure hypercholesterolemia Screening for colon cancer Routine general medical examination at a health care facility Expected: 07/14/2024 (Approximate), Expires: 07/14/2025 T-SPOT??.TB Lab Routine Routine general medical examination at a health care facility Expected: 07/14/2024 (Approximate), Expires: 07/14/2025 Scheduled Referrals Name Type Priority Associated Diagnoses Order Schedule Referral to Behavioral Health Outpatient Referral Routine Depressive disorder Expected: 07/14/2024 (Approximate), Expires: 07/14/2025 documented as of this encounter Visit Diagnoses Diagnosis Takotsubo cardiomyopathy- Primary Takotsubo syndrome Continuous opioid dependence (CMS/HCC) Opioid type dependence, continuous abuse Pure hypercholesterolemia Screening for colon cancer Special screening for malignant neoplasms, colon Routine general medical examination at a health care facility Depressive disorder Depressive disorder, not elsewhere classified documented in this encounter Additional Health Concerns Assessment Noted Time PHQ-9 Depression Total Score: 21 025 11:11 AM EDT documented as of this encounter Care Teams Sheet Metal Layout Worker Relationship Specialty Start Date End Date Jacy Aldridge MD [address] [place] [address] PCP - General Family Medicine 01/22/16 documented as of this encounter
--- OUTSIDE RECORDS SUMMARY | 2024-07-14 12:17 | XMS_ITS | Encounter Summary ---
Author Organization [employer] Address 75 [facility] 7t [place] [address] Care Team Providers Care Shot Dropper Name Role Phone Jacy Aldridge MD Primary Care Provider [phone] Reason for Visit * Reason Onset Date Comments Appointment Request 03/27/2022 Encounter Details Date Type Department Care Team ([facility] Contact Info) Description 03/27/2022 Telephone [facility] [address] [place], [place] [phone] Jacy Aldridge MD [address] [place], [place] [phone] Appointment Request Social History Tobacco Use Types [...] cannot get some paperwork that she needs. Hydroelectric Plant Electrical Engineer try to book appt but provider did not have anything open. If any question please contact amparo at [phone] documented in this encounter Plan of Treatment Upcoming Encounters Date Type Department Care Team (Late st Contact Info) Description 09/27/2024 9:45 AM EDT Office Visit [facility] MED & PEDS [address] [place] [address] Asim Sloan MD [address] [place], [place] [phone] 10/14/2024 10:15 AM EDT Office Visit [facility] MED & PEDS [address] [place] [address] Jacy Aldridge MD [address] [place] [address] documented as of this encounter Visit Diagnoses Not on filedocumented in this encounter Care Teams Shot Dropper Relationship Specialty Start Date End Date Jacy Aldridge MD [address] [place] [address] PCP - General Family Medicine 01/22/16 documented as of this encounter
--- OUTSIDE RECORDS SUMMARY | 2024-07-14 12:17 | XMS_ITS | Encounter Summary ---
Author Organization [employer] Address [address] [facility] [address] 7t [place] [address] Care Team Providers Care Inspector Sheet Metal Parts Name Role Phone Jacy Aldridge MD Primary Care Provider [phone] Encounter Details Date Type Department Care Team (Latest Contact Info) Description 07/14/2024 Travel Social History Tobacco Use Types Packs/Day [...] Pests such as bugs, ants, or mice;Lead [place] or Pipes 07/14/2024 Food Insecurity Answer Date [...] AM EDT documented as of this encounter Functional Status * Over the [...] AM CRYSTALT Zuly Cartagena [place] * Trouble falling or [...] 07/14/2024 11:11 AM Zuly Copeland [place] * Moving or speaking so slowly that other people could have noticed? Or the opposite - being so fidgety or restless that you have been moving around a lot more than usual. Answer Date of Assessment Author More than half the days 07/14/2024 11:11 AM EDT Zuly Fields [place] * Thoughts that you would be better off or hurting yourself in some way Answer Date of Assessment Author Several days 07/14/2024 11:11 AM EDT Zuly Bar [place] * Patient Health Questionnaire-9 [...] Description 09/27/2024 9:45 AM EDT Office Visit [facility] MED & PEDS [address] [place] [address] Asim Sloan MD [address] [place] [address] 10/14/2024 10:15 AM EDT Office Visit [facility] MED & PEDS [address] [place] [address] Jacy Aldridge MD [address] [place] [address] documented as of this encounter Visit Diagnoses Not on filedocumented in this encounter Additional Health Concerns Assessment Noted Time PHQ-9 Depression Total Score: 025 11:11 AM EDT documented as of this encounter Care Teams Inspector Sheet Metal Parts Relationship Specialty Start Date End Date Jacy Aldridge MD [address] [place] [address] PCP - General Family Medicine 01/22/16 documented as of this encounter
--- OUTSIDE RECORDS SUMMARY | 2024-07-14 12:18 | XMS_ITS | Encounter Summary ---
Author Organization [employer] Address 75 [facility] 7t [place] [address] Care Team Providers Care Gastroenterology Professor Name Role Phone Jacy Aldridge MD Primary Care Provider [phone] Reason for Visit * Reason Onset Date Comments Appointment Request 05/24/2024 Encounter Details Date Type Department Care Team ([facility] st Contact Info) Description 05/24/2024 Telephone [facility] MEDICINE [address] [place], [place] [phone] Jacy Aldridge MD [address] [place], [place] [phone] Appointment Request Social History Tobacco Use Types [...] - 05/24/2024 11:43 AM EDT Tc from [place] with [facility] requesting a call back to schedule OV Extended. Pt las annual 12/26/22 (Pt) documented in this encounter Plan of Treatment Upcoming Encounters Date Type Department Care Team (Late st Contact Info) Description 09/27/2024 9:45 AM EDT Office Visit [facility] MED & PEDS [address] [place] [address] Asim Sloan MD [address] [place] [address] 10/14/2024 10:15 AM EDT Office Visit [facility] MED & PEDS [address] [place] [address] Jacy Aldridge MD [address] [place] [address] documented as of this encounter Visit Diagnoses Not on filedocumented in this encounter Additional Health Concerns Assessment Noted Time PHQ-9 Depression Total Score: 2 05/07/19 24 11:32 AM EST documented as of this encounter Care Teams Gastroenterology Professor Relationship Specialty Start Date End Date Jacy Aldridge MD [address] [place] [address] PCP - General Family Medicine 01/22/16 documented as of this encounter
--- OUTSIDE RECORDS SUMMARY | 2024-07-14 12:18 | XMS_ITS | Encounter Summary ---
Author Organization [employer] Address [address] [facility] [address] 7[address] [place] [address] Care Team Providers Care Hydraulic Corrugating Machine Operator Name Role Phone Jacy Aldridge MD Primary Care Provider [phone] Encounter Details Date Type Department Care Team ([facility] st Contact Info) Description 07/06/2024 Telephone [facility] [address] [place] [address] Jacy Aldridge MD [address] [place] [address] Social History Tobacco Use Types Packs/Day Years [...] encounter Miscellaneous Notes * Telephone Encounter - Ninoska Romero - 07/06/2024 12:19 PM EDT Tc from Lacy at [facility] calling to report pt blood pressure at [facility] [employer] office today was high. Lacyreported pt does not drink medication as she should. Lacy is requesting pt PCP to set up medication in bubble pack. If any questions contact Lacy at [phone] documented in this encounter Plan of Treatment Upcoming Encounters Date Type Department Care Team (Late st Contact Info) Description 09/27/2024 9:45 AM EDT Office Visit [facility] MED & PEDS [address] [place] [address] Asim Sloan MD [address] [place] [address] 10/14/2024 10:15 AM EDT Office Visit [facility] MED & PEDS [address] [place] [address] Jacy Aldridge MD [address] [place] [address] documented as of this encounter Visit Diagnoses Not on filedocumented in this encounter Additional Health Concerns Assessment Noted Time PHQ-9 Depression Total Score: 2 05/07/19 24 11:32 AM EST documented as of this encounter Care Teams Hydraulic Corrugating Machine Operator Relationship Specialty Start Date End Date Jacy Aldridge MD [address] [place] [address] PCP - General Family Medicine 01/22/16 documented as of this encounter
--- OUTSIDE RECORDS SUMMARY | 2024-07-14 12:18 | XMS_ITS | Encounter Summary ---
Author Organization [employer] Address [address] [facility] 7t [place] [address] Care Team Providers Care Power Regulator Name Role Phone Jacy Aldridge MD Primary Care Provider [phone] Reason for Visit * Reason Onset Date Comments med request 06/07/2024 Encounter Details Date Type Department Care Team ([facility] st Contact Info) Description 06/07/2024 Telephone [facility] [address] [place], [place] [phone] Jacy Aldridge MD [address] [place], [place] [phone] med request Social History Tobacco Use Types [...] 10:17 AM EDT TC to pt using intravenous therapy nurse services. Pt answered phone and stated she [...] 3:40 PM EDT TC to [facility]Care in [place] to obtain information if wrong medication was taken just now, or if historical event, and to see if pt is still experiencing symptoms. Spoke with dairy processing supervisor Rosalie who stated that Jayashree is not a nurse she is familiar with at all adult day health locations of [facility] and believes Jayashree is home care nurse and Rosalie stated will notify dairy processing supervisor of home care to reach out [...] bubble packs. If any questions please contact [phone] documented in this encounter Plan of Treatment Upcoming Encounters Date Type Department Care Team (Late st Contact Info) Description 09/27/2024 9:45 AM EDT Office Visit [facility] [address] [place] [address] Asim Sloan MD [address] [place], [place] [phone] 10/14/2024 10:15 AM EDT Office Visit [facility] [address] [place] [address] Jacy Aldridge MD [address] [place] [address] documented as of this encounter Visit Diagnoses Not on filedocumented in this encounter Additional Health Concerns Assessment Noted Time PHQ-9 Depression Total Score: 2 05/07/19 24 11:32 AM EST documented as of this encounter Care Teams Power Regulator Relationship Specialty Start Date End Date Jacy Aldridge MD [address] [place] [address] PCP - General Family Medicine 01/22/16 documented as of this encounter
--- OUTSIDE RECORDS SUMMARY | 2024-07-14 12:18 | XMS_ITS | Clinical Summary ---
Author Organization [employer] Address [address] [facility] 7t [place] [address] Care Team Providers Care Seismic Prospecting Observer Helper Name Role Phone Jacy Aldridge MD Primary Care Provider [phone] Allergies No known active allergies Medications * [...] 1 puff 2 times daily. 60 each 11 024 Active citalopram (CeleXA) 20 MG tablet Take 1 tablet (20 mg) by mouth in the morning. 30 tablet 5 Active atorvastatin (Lipitor) 40 MG tablet Take 1 tablet (40 mg) by mouth in the morning. 30 tablet 11 024 Active albuterol (2.5 MG/3ML) 0.083% nebulizer solution USE ONE AMPULE USING A NEBULIZER THREE TIMES DAILY NEEDED 90 mL 024 Active Ventolin HFA 108 (90 Base) MCG/ACT inhaler INHALE TWO PUFFS EVERY 6 HOURS NEEDED FOR WHEEZING 18 g 2 025 Active nicotine (Nicoderm CQ) 14 MG/24HR patch Place 1 patch on the skin 1 (one) time each day at the same time. 42 patch 025 Active nicotine (Nicoderm CQ) 7 MG/24HR patch Place 1 patch on the skin 1 (one) time each day at the same time. 14 patch 025 Active nicotine polacrilex (Commit) 2 MG lozenge Dissolve 1 lozenge (2 mg) in the mouth if needed for smoking cessation. 100 lozenge 025 Active Blood Pressure kit 1 each 2 times daily. Call [facility] if BP readings are > 140/90 1 kit 025 2025 Active Buprenorphine HCl-Naloxone HCl (Suboxone) 8-2 MG SL filmIndications: Opioid dependence, uncomplicated (CMS/HCC) Place 2 Film under the tongue Once per day. Do not start before July 05, 2024. 56 Film 1 025 2024 Active lisinopril 10 MG tablet Take 1 tablet by mouth Once per day. 025 Active lisinopril 5 MG tablet Take 1 tablet (5 mg) by mouth in the morning. 30 tablet 11 024 2024 Discontinued(T herapy completed) Buprenorphine HCl-Naloxone HCl (Suboxone) 8-2 MG SL [...] Encounters Date Type Department Care Team Description 07/14/2024 10:30 AM EDT Office Visit [facility] [address] [place] [address] Jacy Aldridge MD Takotsubo cardiomyopathy (Primary Dx); Continuous opioid dependence (CMS/HCC); Pure hypercholesterolemia; Screening for colon cancer; Routine general medical examination at a health care facility; Depressive disorder 07/14/2024 Travel 07/06/2024 Telephone [facility] [address] [place] [address] Jacy Aldridge MD 07/05/2024 9:45 AM EDT Office Visit [facility] [address] [place] [address] Asim Sloan MD Opioid dependence, uncomplicated (CMS/HCC) (Primary Dx) 07/05/2024 Travel 06/28/2024 Refill [facility] [address] [place] [address] Supriya Esparza, RODOLFO Opioid dependence, uncomplicated (CMS/HCC) 06/28/2024 Refill [facility] [address] [place] [address] Supriya Esparza, RODOLFO 06/28/2024 Refill [facility] [address] [place], [place] [phone] Supriya Esparza, RN Opioid dependence, uncomplicated (CMS/HCC) 06/10/2024 Telephone [facility] [address] [place] [address] Jacy Aldridge MD 06/08/2024 Orders Only [facility] [address] [place] [address] Jacy Aldridge MD Moderate recurrent major depression (CMS/HCC) (Primary Dx) 06/07/[address] [address] Jacy Aldridge MD med request 05/28/2024 Orders Only [facility] [address] [place] [address] Jake Fulton MD 05/28/2024 Telephone [facility] [address] [place] [address] Jake Fulton MD Results 05/27/2024 Telephone [facility] [address] [place] [address] Claire Murphy RN Results 05/26/2024 11:00 AM EDT Office Visit [facility] [address] [place] [address] Jake Fulton MD Dysuria (Primary Dx); Chest pain, unspecified type; Elevated blood pressure reading in office without diagnosis of hypertension; Vaginal itching 05/24/[address] [address] Jacy Aldridge MD Appointment Request 05/21/2024 Telephone [facility] [address] [place] [address] Jacy Aldridge MD No Show 05/21/2024 Refill [facility] [address] [place] [address] Jacy Aldridge MD 05/20/[address] [address] Jacy Aldridge MD Nurse Triage 05/20/[address] [address] Jacy Aldridge MD Fyi 05/10/2024 9:45 AM EDT Office Visit [facility] [address] [place] [address] Asim Sloan MD Opioid type dependence, continuous (CMS/HCC) (Primary Dx) 05/10/2024 Travel 05/03/2024 Refill [facility] [address] [place] [address] Supriya Esparza RN Opioid dependence, uncomplicated (CMS/HCC) from Last 3 Months Immunizations Immunization Administration Dates Next Due Influenza High-dose Quadriva [...] Answer Date Recorded Patient Health Questionnaire-9 Score 07/14/2024 Patient Health Questionnaire-9 Score 21 07/14/2024 Last PHQ-9: Questionnaire Data Not on file 0 07/14/2024 Housing Stability Answer Date Recorded What is your housing situation today? I have olivia rush 07/14/[address] you li ve. Do you have problems with any of the following? Pests such as bugs, ants, or mice;Lead [facility] [employer] 07/14/2024 Food Insecurity Answer Date [...] Mass Index 21.79 07/14/2024 10:36 AM EDT Plan of Treatment Upcoming Encounters Date Type Department Care Team (Late st Contact Info) Description 09/27/2024 9:45 AM EDT Office Visit [facility] [address] [place], [place] [phone] Asim Sloan MD [address] [place] [address] 10/14/2024 10:15 AM EDT Office Visit [facility] [address] [place] [address] Jacy Aldridge MD [address] [place] [address] Health Maintenance Due Date Last Done Comments [...] 2023 , 12/03/2021, 01/22/2019, Additional history exists Tobacco Screening 05/26/2025 05/26/2024 Depression Screening 07/14/2025 07/14/2024, 07/15/19 25 SDOH Screening 07/14/2025 07/14/2024 Mammogram 09/02/2025 09/03/2023, 1108/2022, 08/26/2022, Additional history exists DTaP/Tdap/Td Vaccines (2 [...] age to complete this topic Meningococcal B Vaccine Aged Out No l onger eligible based on patient's age to complete [...] DETECTION BY PCR NOT DETECTED Not Detect [facility] BACTERIAL VAGINOSIS DETECTION BY PCR POSITIVE(A) Negative [facility] Comment:The BV organism targ ets [...] DETECTION BY PCR NOT DETECTED Not Detect [facility] Zahra glab krusei PCR NOT DETECTED Not Detect [facility] Swab Vaginal structure / Unknown 05/26/2024 11:25 AM EDT 05/26/2024 5:03 PM EDT Jake Fulton MD LAB MICROBIOLOGY - GENERAL ORDER TERRANCE Final Result [facility] [address] [place] [phone] * Chlamydia/N. Gonorrhoeae RNA, TMA, Urogenitial (05/26/2024 11:25 AM EDT) CT PCR NOT DETECTED Not Detect. [facility] Comment:A not detected test result [...] psychologicalconsequences. NG PCR NOT DETECTED Not Detect. [facility] Comment:A not detected test result [...] 11:25 AM EDT 05/26/2024 5:03 PM EDT Narrative [facility] - 05/26/2024 8:04 PM EDT Vaginal us Jake Fulton MD LAB MICROBIOLOGY - GENERAL ORDER TERRANCE Final Result [facility] [address] [place] [phone] * Culture, Urine, Routine (05/26/2024 11:25 AM EDT) Urine Urine specimen obtained by clean catch procedure / Unknown 05/26/2024 11:25 AM EDT 05/26/2024 4:50 PM EDT Comment:UACC Narrative [facility] - 05/28/2024 7:42 AM EDT Escherichia coli Quant 50,000 to 100,000 cfu/mL Escherichia coli: Ampicillin <=2(S) Escherichia coli: Cefazolin (Urine) <=1(S) Escherichia coli: Cefepime <=0.12(S) Escherichia coli: Ceftriaxone <=0.25(S) Escherichia coli: Ciprofloxacin <=0.06(S) Escherichia coli: Gentamicin <=1(S) Escherichia coli: Nitrofurantoin <=16(S) Escherichia coli: Trimethoprim/Sulfamethoxazole <=20(S) Specimen Source: Urine clean catch us Jake Fulton MD LAB MICROBIOLOGY - GENERAL ORDER TERRANCE Final Result [facility] [address] [place] [address] [phone] * (ABNORMAL) POCT urinalysis dipstick manually resulted (05/26/2024 11:23 AM EDT) Color, UA [place] Clarity, UA Clear Glucose, UA Negative Bilirubin, UA Few 15 Comment:small Ketones, UA Negative Spec Grav, UA 1.030 Blood, UA Positive(A) Negative, None Detected Comment:small pH, UA 5.5 Protein, UA Few 15 Comment:30 mg/dL Urobilinogen, UA 0.2 Leukocytes, UA Few 15(A) Negative, Rare, Trace Comment:small Nitrite, UA Negative Negative, None Detected Urine 05/26/2024 11:2 3 AM EDT us Jake Fulton MD POINT OF CARE TEST ENTER/EDIT OR DERABLES Final Result * BI Mammogram Screening Tomosynthesis Bilateral (09/03/2023 12:05 PM EDT) Anatomical Region Laterality Modality Breast Bilateral Mammography 09/03/2023 12:0 5 PM EDT Narrative 09/23/2023 9:55 PM EDT ? [facility] ? [address] ?[place], [place] [address] ? Mammography Report ? Signed ? Patient: Cinthya Tay ?MR#: M ?? [id number] ? : 1955 ?Acct:[id number] ? Age/Sex: 68 / F ?ADM Date: 09/03/23 ? Loc: HO.MAMMO ? Attending Dr: Jacy Aldridge MD ? Ordering Physician: Jacy Aldridge MD ?Results: 1Ne ?? gative ? Date of Service: 09/03/23 ?Follow Up: 1 Year From Orig ?? inal Mammogram ? Procedure(s): MM tomosynthesis screening BI ?? Accession Number(s): [id number] ? cc: Jacy Aldridge MD ? EXAMINATION: [...] 2151 ? DD/ 1205 ? TD/TT: ? Baling Press Operator: ? Procedure Note Hunter, Image - 09/23/2023 [facility] [address] [place] [address] Mammography Report Signed Patient: Jj Tay#: M [id number] : 8Acct:[id number] Age/Sex: 68 / FADM Date: 09/03/23 Loc: [facility] Attending Dr: Jacy Aldridge MD Ordering Physician: Jacy Aldridge MDResults: 1Ne gative Date of Service: 09/03/23Follow Up: 1 Year From Orig inal Mammogram Procedure(s): MM tomosynthesis screening BI Accession Number(s): [id number] cc: Jacy Aldridge MD EXAMINATION: MM SCREENING [...] in OV> 09/23/23 2151 DD/ 1205 TD/TT: Baling Press Operator: us Jacy Aldrdige MD IMG BI PROCEDURES Final Resul t * Lipid Panel, Standard (07/07/2023 10:40 AM EDT) Triglycerides 59 <150 mg/dL [facility] Comment:Desirable Triglyceri de: less than 150 mg/dLBorderline High Triglyceride 150-199 mg/dLHigh Triglyceride: 200-499 mg/dLVery High Triglyceride: greater than or equal to 5OO mg/dL Cholesterol 142 <200 mg/dL [facility] Comment:Desirable Cholestero l: less than 200 mg/dLBorderline High Cholesterol: 200-239 mg/dLHigh Cholesterol: greater than 239 mg/dL LDL Cholesterol Calculated 76 <100 mg/dL [facility] Comment:Desirable LDL: less than 100 mg/dLNear Optimal/Above Optimal LDL: 110- 129 mg/dLBorderline High LDL: 130-159 mg/dLHigh LDL: 160-189 mg/dLVery High LDL: greater than or equal to 190 mg/dL HDL Cholesterol 55 >40 mg/dL [facility] Comment:Desirable HDL: great er than 40 mg/dL Note: This HDL assay may give artificially low results in patients with liver disease. 07/07/2023 10:4 0 AM EDT 07/07/2023 10:40 AM EDT us Generic External Data Provider LAB BLOOD ORDERAB LES Final Result [facility] [address] [place] [address] [phone] from Last 3 Months or Most Recently Relevant to Health Maintenance Insurance [facility] [employer] (HMO D-SNP) [facility] STANDARD Care Teams Seismic Prospecting Observer Helper Relationship Specialty Start Date End Date Jacy Aldridge MD [address] [place] [phone] PCP - General Family Medicine 01/22/16
--- OUTSIDE RECORDS SUMMARY | 2024-07-14 12:18 | XMS_ITS | Encounter Summary ---
Author Organization [employer] Address [address] [facility] [address] 7[address] [place] [address] Care Team Providers Care Name Role Phone Jacy Aldridge MD Primary Care Provider [phone] Encounter Details Date Type Department Care Team (Late st Contact Info) Description 06/10/2024 Telephone [facility] [address] [place], [place] [phone] Jacy Aldridge MD [address] [place], [place] [phone] Social History Tobacco Use Types Packs/Day Years [...] * Telephone Encounter - Ninoska Romero - 07/09/2024 11:51 AM EDT Tc from Jayashree at [facility] requesting for pt to get a call back regarding prior message. Best contact number is [phone] * Telephone Encounter - Brynn Rodriguez - 06/10/2024 1:12 PM EDT Pharmacy [facility] attempted outreach call on 06/10/24 for Medication Therapy Management (MTM) appointment; however, unable to reach patient. LVM for patient to contact Brynn Rodriguez at [phone]. documented in this encounter Plan of Treatment Upcoming Encounters Date Type Department Care Team ([facility] st Contact Info) Description 09/27/2024 9:45 AM EDT Office Visit [facility] [address] [place] [address] Asim Sloan MD [address] [place] [address] 10/14/2024 10:15 AM EDT Office Visit [facility] [address] [place] [address] Jacy Aldridge MD [address] [place], [place] documented as of this encounter Visit Diagnoses Not on filedocumented in this encounter Additional Health Concerns Assessment Noted Time PHQ-9 Depression Total Score: 2 05/07/19 24 11:32 AM EST documented as of this encounter Care Teams Relationship Specialty Start Date End Date Jacy Aldridge MD [address] [place] [address] PCP - General Family Medicine 01/22/16 documented as of this encounter
--- OUTSIDE RECORDS SUMMARY | 2024-07-14 12:18 | XMS_ITS | Encounter Summary ---
Author Organization [employer] Address [address] [facility] 7t [place] [address] Care Team Providers Care Crossword Puzzle Maker Name Role Phone Jacy Aldridge MD Primary Care Provider [phone] Reason for Visit * Reason Onset Date Comments Nurse Triage 03/23/2024 Encounter Details Date Type Department Care Team ([facility] st Contact Info) Description 03/23/2024 Telephone [facility] [address] [place], [place] [phone] Jacy Aldridge MD [address] [place], [place] [phone] Nurse Triage Social History Tobacco Use Types [...] 03/23/2024 5:03 PM EST Triage call with [facility] [place] [id number], [place]. Pt reports minor rectal bleeding yesterdaydue to constipation and hemorrhoids. Pt reports this happened 2x yesterday and no BM today. Pt denies abdominal pain, weakness. Pt does report that the constipation caused Pt to have to bear down to pass stool and that is what caused the irritation to the hemorrhoid. Pt is advised to come to [facility] today to be seen but, declines. Pt [...] 9:45 AM EDT Office Visit [facility] [address] [place] [address] Asim Sloan MD [address] [place] [address] 10/14/2024 10:15 AM EDT Office Visit [facility] [address] [place] [address] Jacy Aldridge MD [address] [place] [address] documented as of this encounter Visit Diagnoses Not on filedocumented in this encounter Additional Health Concerns Assessment Noted Time PHQ-9 Depression Total Score: 2 05/07/19 24 11:32 AM EST documented as of this encounter Care Teams Crossword Puzzle Maker Relationship Specialty Start Date End Date Jacy Aldridge MD [address] [place] [address] PCP - General Family Medicine 01/22/16 documented as of this encounter
--- OUTSIDE RECORDS SUMMARY | 2024-07-14 12:18 | XMS_ITS | Encounter Summary ---
Author Organization [facility] Address [address] [place] [address] 7 [place] [address] Care Team Providers Care Jewelry Bearing Maker Name Role Phone Jacy Aldridge MD Primary Care Provider [phone] Reason for Visit * Reason Onset Date Comments Housing Assistance 09/30/2022 Encounter Details Date Type Department Care Team ([facility] Contact Info) Description 09/30/2022 Telephone [facility] [address] [place], [place] [phone] Jacy Aldridge MD [address] [place], [place] [phone] Housing Assistance Social History Tobacco Use Types [...] Upcoming Encounters Date Type Department Care Team ([facility] Contact Info) Description 09/27/2024 9:45 AM EDT Office Visit [facility] [address] [place], [place] [phone] Asim Sloan MD [address] [place] [address] 10/14/2024 10:15 AM EDT Office Visit [facility] [address] [place], [place] [phone] Jacy Aldridge MD [address] [place] [address] documented as of this encounter Visit Diagnoses Not on filedocumented in this encounter Care Teams Jewelry Bearing Maker Relationship Specialty Start Date End Date Jacy Aldridge MD [address] [place] [address] PCP - General Family Medicine 01/22/16 documented as of this encounter
--- OUTSIDE RECORDS SUMMARY | 2024-07-14 12:18 | XMS_ITS | Encounter Summary ---
Author Organization [employer] Address [address] [place] [address] 7t [place] [address] Care Team Providers Care Single Resource Boss Name Role Phone Jacy Aldridge MD Primary Care Provider [phone] Reason for Visit * Reason Comments Med Refill Encounter Details Date Type Department Care Team ([facility] Contact Info) Description 10/26/2022 Refill [facility] MED[facility]INE [address] [place] [phone] Jacy Aldridge MD [address] [place], [place] [phone] Social History Tobacco Use Types Packs/Day Years [...] Upcoming Encounters Date Type Department Care Team ([facility] Contact Info) Description 09/27/2024 9:45 AM EDT Office Visit [facility] [address] [place], [place] [phone] Asim Sloan MD [address] [place] [address] 10/14/2024 10:15 AM EDT Office Visit [facility] [address] [place], [place] [phone] Jacy Aldridge MD [address] [place] [address] documented as of this encounter Visit Diagnoses Not on filedocumented in this encounter Care Teams Single Resource Boss Relationship Specialty Start Date End Date Jacy Aldridge MD [address] [place] [address] PCP - General Family Medicine 01/22/16 documented as of this encounter
--- OUTSIDE RECORDS SUMMARY | 2024-07-14 12:18 | XMS_ITS | Clinical Summary ---
Author Organization [facility] Address [address] [place] [address] Care Team Providers Care Bung Sewer Name Role Phone Juan Diego Zaidi MD [...] - 2023-2 5 season) 2023 Influenza Vaccine (Season Ended) 2024 RSV Immunization Adult Patie nts (1 - 1-dose 75+ series) 2032 HIB [...] age to complete this topic Care Teams Bung Sewer Relationship Specialty Start Date End Date Juan Diego Zaidi MD [address] [place] [address] PCP - General Internal Medicine 11/21/15
--- OUTSIDE RECORDS SUMMARY | 2024-07-14 12:18 | XMS_ITS | Encounter Summary ---
Author Organization [employer] Address [address] [facility] 7t [place] [address] Care Team Providers Care Notched Blade Loader Name Role Phone Jacy Aldridge MD Primary Care Provider [phone] Reason for Visit * Reason Onset Date Comments Appointment Request 10/28/2022 Encounter Details Date Type Department Care Team (Late Contact Info) Description 10/28/2022 Telephone [facility] [address] [place], [place] [phone] Jacy Aldridge MD [address] [place], [place] [phone] Appointment Request Social History Tobacco Use Types [...] in a year. Please contact pt at [phone] Mauritanian Speaker documented in this encounter Plan of Treatment Upcoming Encounters Date Type Department Care Team (Late Contact Info) Description 09/27/2024 9:45 AM EDT Office Visit [facility] [address] [place] [address] Asim Sloan MD [address] [place] [address] 10/14/2024 10:15 AM EDT Office Visit [facility] [address] [place] [address] Jacy Aldridge MD [address] [place] [address] documented as of this encounter Visit Diagnoses Not on filedocumented in this encounter Care Teams Notched Blade Loader Relationship Specialty Start Date End Date Jacy Aldridge MD [address] [place] [address] PCP - General Family Medicine 01/22/16 documented as of this encounter
--- OUTSIDE RECORDS SUMMARY | 2024-07-14 12:18 | XMS_ITS | Encounter Summary ---
Author Organization [employer] Address [address] [facility] 7t [place] [address] Care Team Providers Care Molder Labels Name Role Phone Jacy Aldridge MD Primary Care Provider [phone] Reason for Visit * Reason Onset Date Comments ER Follow-up 02/25/2023 Encounter Details Date Type Department Care Team ([facility] st Contact Info) Description 02/25/2023 Telephone [facility] MEDICINE [address] [place] [address] Jacy Aldridge MD [address] [place], [place] [phone] ER Follow-up Social History Tobacco Use Types [...] 02/25/2023 10:46 AM EST Pt dischsrged from [facility] on 02/20/23 for NSTEMI. Returned call to pt SLIME PLANT OPERATOR HELPER and SLIME PLANT OPERATOR HELPER agrees to HDF appt with provider on 03/07/23. SLIME PLANT OPERATOR HELPER states besides minimal dizziness at times, pt denies any CP or other concerns. SLIME PLANT OPERATOR HELPER advised to call office if there are any further questions or concerns or return to ED if pt develops SOB or CP. * Telephone Encounter - Steve Gómez - 02/25/2023 10:15 AM EST Tc from patients SLIME PLANT OPERATOR HELPER calling to make appt please call Gena at [phone] Patient calling to report ED visit on : 02/25 Date: 02/18 Hospital: [facility] Seen for: Heart Attack Patient advised will forward to team nurse for follow up documented in this encounter Plan of Treatment Upcoming Encounters Date Type Department Care Team (Late st Contact Info) Description 09/27/2024 9:45 AM EDT Office Visit [facility] MED & PEDS 505 [place] [address] Asim Sloan MD 230 [place] [address] 10/14/2024 10:15 AM EDT Office Visit [facility] MED & PEDS 505 [place] [address] Jacy Aldridge MD 505 [place] [address] documented as of this encounter Visit Diagnoses Not on filedocumented in this encounter Care Teams Molder Labels Relationship Specialty Start Date End Date Jacy Aldridge MD [address] [place] [address] PCP - General Family Medicine 01/22/16 documented as of this encounter
--- OUTSIDE RECORDS SUMMARY | 2024-07-14 12:18 | XMS_ITS | Encounter Summary ---
Author Organization [employer] Address [address] [facility] [address] 7t [place] [address] Care Team Providers Care Tobacco Packer Name Role Phone Jacy Aldridge MD Primary Care Provider [phone] Reason for Visit * Reason Onset Date Comments Med Refill 06/28/2024 Encounter Details Date Type Department Care Team (Late st Contact Info) Description 06/28/2024 Refill [facility] MEDICINE 230 [place] [address] Supriya Esparza, RODOLFO Social History Tobacco Use [...] Description 09/27/2024 9:45 AM EDT Office Visit [facility] MED & PEDS 505 [place] [address] Asim Sloan MD 230 [place] [address] 10/14/2024 10:15 AM EDT Office Visit [facility] MED & PEDS 505 [place] [address] Jacy Aldridge MD 505 [place] [address] documented as of this encounter Visit Diagnoses Not on filedocumented in this encounter Additional Health Concerns Assessment Noted Time PHQ-9 Depression Total Score: 2 05/07/19 24 11:32 AM EST documented as of this encounter Care Teams Tobacco Packer Relationship Specialty Start Date End Date Jacy Aldridge MD 505 [place] [address] PCP - General Family Medicine 01/22/16 documented as of this encounter
[2024-07-14 14:55] LABS: MANUAL DIFF FLAG NO
[2024-07-14 15:04] LABS: Basophils Percent Auto 0.7 % (0-2); Eosinophils Absolute Auto 0.1 X10*3/uL (0.0-0.4); Eosinophils Percent Auto 2.3 % (0-4); Hemoglobin 14.4 g/dl (12.0-16.0); Imm Gran Abs Auto 0.02 X10*3/uL (0.00-0.03); Imm Gran Pct Auto 0.3 % (0.0-0.4); Lymphocytes Absolute Auto 1.6 X10*3/uL (1.2-4.9); Lymphocytes Percent Auto 28.5 % (20-40); Mean Corpuscular HGB Conc 33.5 g/dl (31.0-35.0); Mean Corpuscular Hemoglobin 31.2 pg (27.0-33.0); Mean Corpuscular Volume 93.3 fL (80.0-98.0); Mean Platelet Volume 11.2 fL (9.4-12.3); Monocytes Absolute Auto 0.4 X10*3/uL (0.1-1.2); Monocytes Percent Auto 6.4 % (2-11); Neutrophils Absolute Auto 3.6 x10*3/uL (2.0-8.3); Neutrophils Percent Auto 61.8 % (45-73); Platelet Count 255 X10*3/uL (160-400); Red Blood Count 4.61 X10*6/uL (4.20-5.50); Red Cell Distribution Width 12.6 % (11.0-16.0); White Blood Count 5.8 X10*3/uL (4.8-10.8)
[2024-07-14 15:25] LABS: Alanine Aminotransferase 15 U/L (0-31); Albumin Level 4.6 g/dL (3.5-5.0); Anion Gap 13 (12-20); Aspartate Amino Transferase 24 U/L (5-31); Bilirubin Direct 0.3 mg/dL (0.0-0.5); Blood Urea Nitrogen 14 mg/dL (9-16); C Reactive Protein < 0.04 mg/dL (< or = 0.50); Calcium 9.3 mg/dL (8.4-10.2); Carbon Dioxide 27 mmol/L (22-29); Chloride 104 mmol/L (96-108); Cholesterol 157 mg/dL (<200); Estimated Glomerular Filt Rate > 60; Glucose Fasting 86 mg/dL (60-99); HDL Cholesterol 58 mg/dL (>40); LDL Cholesterol Calculated 82 mg/dL (<100); Potassium 3.8 mmol/L (3.3-5.1); Sodium 140 mmol/L (135-145); Total Protein 7.1 g/dL (6.5-8.0); Triglycerides 89 mg/dL (<150)
[2024-07-14 15:36] LABS: Microalbum/Creatinine Ratio Ur 25.5 ug/mg cr (<30)
[2024-07-14 15:48] LABS: Vitamin B12 289 pg/mL (200-900)
[2024-07-14 15:50] LABS: TSH reflex Free T4 0.51 uIU/mL (0.32-4.0); Vitamin D 25-OH Total 27.5 ng/mL (>30)
[2024-07-14 17:01] LABS: Alkaline Phosphatase 63 U/L (39-117)
[2024-07-19 00:49] LABS: TS Negative Control Passed; TS Panel A 0; TS Panel B 1; TS Positive Control Passed; TSpotTB Negative (Negative)
== END 2024-07-14 11:16 | disposition home or self-care (01) ==
LOC: HO.CHCLDS 11:15
PROVIDERS: Visit Provider Pediatrics
DX: Z00.00 Encounter for general adult medical examination without abnormal findings (principal); Z12.11 Encounter for screening for malignant neoplasm of colon; E78.00 Pure hypercholesterolemia, unspecified; F11.20 Opioid dependence, uncomplicated; I51.81 Takotsubo syndrome
CPT/HCPCS: 36415; 80048; 80061; 80076; 82043; 82306; 82570; 82607; 82746; 84443; 85025; 86140; 86481

== ENCOUNTER 2024-12-01 07:48 | Outpatient (REF) | payer OTHER, SELFPAY ==
--- NOTE | ~2024-12-01 | MM_ITS ---
EXAMINATION: DXA BONE DENSITY AXIAL HISTORY: VITAMIN D DEFICIENCY TECHNIQUE: Metago Dual energy absorptiometry (DEXA) of the lumbar spine, total left hip, and femoral neck was performed. COMPARISON: Comparison is made with the prior examination dated 10/30/2017. FINDINGS: The bone mineral density of the lumbar spine is 1.168 g/cm2, corresponding to a T-score of -0.1, and a Z-score of 2.2. This is indicative of normal bone mineral density. This represents a BMD change of -2.0% compared to the prior exam. This is not statistically significant. The bone mineral density of the left total hip is 0.808 g/cm2, corresponding to a T-score of -1.6, and a Z-score of 0.2. This is indicative of osteopenia. This represents a BMD change of 3.2% compared to the prior exam. This is not statistically significant. The bone mineral density of the left femoral neck is 0.838 g/cm2, corresponding to a T-score of -1.4, and a Z-score of 0.6. This is indicative of osteopenia. This represents a BMD change of 6.5% compared to the prior exam. FRACTURE RISK: The FRAX index suggests a ten year probability of major osteoporotic fracture of 4.3%, and of hip fracture 0.9%. MM/XR DEXA axial skeleton IMPRESSION: Based on bone mineral density, and according to World Health Organization (WHO) criteria, the diagnosis is consistent with osteopenia. Statistically, 68% of repeat scans fall within 1 SD (+/- 0.010 g/cm2 for AP spine L1-L4) and 1 SD (+/- 0.012 g/cm2 for femur total) FRAX is a trademark of the [employer], a World Health Organization (WHO) Collaborating Center. Electronically signed by: Pietro Solorzano MD 12/01/2024 09:10 AM EDT
--- OUTSIDE RECORDS SUMMARY | 2024-12-01 07:54 | XMS_ITS | Encounter Summary ---
Author Organization [employer] Address 75 [facility] 7t [place] [address] Care Team Providers Care Optician Name Role Phone Jacy Aldridge MD Primary Care Provider [phone] Reason for Visit * Reason Onset Date Comments Appointment Request 05/24/2024 Encounter Details Date Type Department Care Team ([facility] st Contact Info) Description 05/24/2024 Telephone [facility] MEDICINE 230 [place], [place] [phone] Jacy Aldridge MD [address] [place], [place] [phone] Appointment Request Social History Tobacco Use Types [...] encounter Miscellaneous Notes * Telephone Encounter - Tnoya [place] - 05/24/2024 11:43 AM EDT Tc from [place] with [facility] requesting a call back to schedule OV Extended. Pt las annual 12/26/22 (Pt) documented in this encounter Plan of Treatment Upcoming Encounters Date Type Department Care Team (Late st Contact Info) Description 12/20/2024 10:15 AM EDT Office Visit [facility] MED & PEDS 505 [place], [place] [phone] Asim Sloan MD [address] [place] [address] documented as of this encounter Visit Diagnoses Not on filedocumented in this encounter Additional Health Concerns Assessment Noted Time PHQ-9 Depression Total Score: 2 05/07/19 24 11:32 AM EST documented as of this encounter Care Teams Optician Relationship Specialty Start Date End Date Jacy Aldridge MD 505 [place], [place] [phone] PCP - General Family Medicine 01/22/16 documented as of this encounter
--- OUTSIDE RECORDS SUMMARY | 2024-12-01 07:54 | XMS_ITS | Encounter Summary ---
Author Organization [employer] Address [address] [facility] [address] 7t [place] [address] Care Team Providers Care Engine House Helper Name Role Phone Jacy Aldridge MD Primary Care Provider [phone] Encounter Details Date Type Department Care Team (Late st Contact Info) Description 10/20/2024 Telephone [facility] MEDICINE 230 [place], [place] [phone] Supriya Esparza RN Social History Tobacco Use Types Packs/Day Years [...] housing situation today? I have olivia rush 10/14/[address] you li ve. Do you have problems with any of the following? None of the above 10/14/2024 Food Insecurity Answer Date Recorded Within the past 12 months, y ou worried that your food would run out before you got money to buy more: Often true 2024 Within the past 12 months,th e food you bought just didn't last and you didn't have enough money to get more: Sometimes True 10/14/2024 Transportation Answer Date Recorded In the past [...] encounter Miscellaneous Notes * Telephone Encounter - Supriya Esparza RN - 10/20/2024 3:33 PM EDT Cinthya reports vivid and disturbing dreams to her PCP (Jacy Aldridge), and PCP reported that to herOBAT provider, Asim Sloan. With the assistance of RODOLFO Perrin, Cinthya was contacted and asked what was happening. Cinthya states that she is sure her vivid dreams (which cause her to relive using drugs and alcohol) is a result of a change in the formulation of her medication (buprenorphine/naloxone). RODOLFO Hussein contacted [facility], and spoke with Pharmacist Sharmila, who states that Cinthya has received the same generic brand bup since March. Sharmila conferred with other staff members that there have been noknown changes in the 8/2 mg films. She suggested that perhaps we attempt to put brand name only on the script. She also suggested that her insurance, [facility], may or may not approve of brand name bup. An appointment was made with Dr. Sloan for at 1 pm to discuss this matter. Sending to as an FYI. documented in this encounter Plan of Treatment Upcoming Encounters Date Type Department Care Team (Late st Contact Info) Description 12/20/2024 10:15 AM EDT Office Visit [facility] MED & PEDS 505 [place] [address] Asim Sloan MD [address] [place] [address] documented as of this encounter Visit Diagnoses Not on filedocumented in this encounter Additional Health Concerns Assessment Noted Time PHQ-9 Depression Total Score: 21 07/14/ 025 11:11 AM EDT documented as of this encounter Care Teams Engine House Helper Relationship Specialty Start Date End Date Jacy Aldridge MD 505 [place] [address] PCP - General Family Medicine 01/22/16 documented as of this encounter
--- OUTSIDE RECORDS SUMMARY | 2024-12-01 07:54 | XMS_ITS | Encounter Summary ---
Author Organization [employer] Address 75 [facility] 7t [place] [address] Care Team Providers Care Agriculturist Name Role Phone Jacy Aldridge MD Primary Care Provider [phone] Reason for Visit * Reason Onset Date Comments Appointment Request 10/28/2022 Encounter Details Date Type Department Care Team (Late Contact Info) Description 10/28/2022 Telephone [facility] 505 [place], [place] [phone] Jacy Aldridge MD 505 [place], [place] [phone] Appointment Request Social History Tobacco Use Types [...] in a year. Please contact pt at [phone] Eritrean Speaker documented in this encounter Plan of Treatment Upcoming Encounters Date Type Department Care Team (Late Contact Info) Description 12/20/2024 10:15 AM EDT Office Visit [facility] MED & PEDS 505 [place] [address] Asim Sloan MD [address] [place] [address] documented as of this encounter Visit Diagnoses Not on filedocumented in this encounter Care Teams Agriculturist Relationship Specialty Start Date End Date Jacy Aldridge MD 505 [place] [address] PCP - General Family Medicine 01/22/16 documented as of this encounter
--- OUTSIDE RECORDS SUMMARY | 2024-12-01 07:54 | XMS_ITS | Encounter Summary ---
Author Organization [facility] [employer] [facility] Address [address] [place] [address] 7t [place] [address] Care Team Providers Care Field Trainer Name Role Phone Jacy Aldridge MD Primary Care Provider [phone] Reason for Visit * Reason Comments Med Refill Encounter Details Date Type Department Care Team ([facility] Contact Info) Description 10/26/2022 Refill [facility] MEDICINE 230 [place], [place] [phone] Jacy Aldridge MD 505 [place], [place] [phone] Social History Tobacco Use Types Packs/Day Years [...] Upcoming Encounters Date Type Department Care Team ([facility] Contact Info) Description 12/20/2024 10:15 AM EDT Office Visit [facility] MED & PEDS 505 [place], [place] [phone] Asim Sloan MD 230 [place], [place] [phone] documented as of this encounter Visit Diagnoses Not on filedocumented in this encounter Care Teams Field Trainer Relationship Specialty Start Date End Date Jacy Aldridge MD 505 [place] [address] PCP - General Family Medicine 01/22/16 documented as of this encounter
--- OUTSIDE RECORDS SUMMARY | 2024-12-01 07:54 | XMS_ITS | Clinical Summary ---
Author Organization [email or web address] [facility] ity Address [address] [place] [address] Care Team Providers Care Roll Form Operator Name Role Phone Juan Diego Zaidi MD [...] 2007 Zoster Vaccines (1 of 2) 2007 Depression Screening 03/03/2024 COVID-19 Vaccine ( - 2023-2 5 season) 2024 Influenza Vaccine (#1) 2024 RSV Immunization Adult Patie nts (1 [...] age to complete this topic Care Teams Roll Form Operator Relationship Specialty Start Date End Date Juan Diego Zaidi MD [address] [place] [address] PCP - General Internal Medicine 11/21/15
--- OUTSIDE RECORDS SUMMARY | 2024-12-01 07:54 | XMS_ITS | Encounter Summary ---
Author Organization [employer] Address [address] [place] [address] 7 [place] [address] Care Team Providers Care Head Waiter/Waitress Banquet Name Role Phone Jacy Aldridge MD Primary Care Provider [phone] Reason for Visit * Reason Onset Date Comments Housing Assistance 09/30/2022 Encounter Details Date Type Department Care Team ([facility] Contact Info) Description 09/30/2022 Telephone [facility] MED & PEDS 505 [place], [place] [phone] Jacy Aldridge MD 505 [place], [place] [phone] Housing Assistance Social History Tobacco Use Types [...] ([facility] Contact Info) Description 12/20/2024 10:15 AM EDT Office Visit [facility] MED & PEDS 505 [place], [place] [phone] Asim Sloan MD 230 [place] [address] documented as of this encounter Visit Diagnoses Not on filedocumented in this encounter Care Teams Head Waiter/Waitress Banquet Relationship Specialty Start Date End Date Jacy Aldridge MD 505 [place] [address] PCP - General Family Medicine 01/22/16 documented as of this encounter
--- OUTSIDE RECORDS SUMMARY | 2024-12-01 07:54 | XMS_ITS | Encounter Summary ---
Author Organization [employer] Address 75 [facility] 7t [place] [address] Care Team Providers Care Tape Control Skin Or Spar Mill Operator Name Role Phone Jacy Aldridge MD Primary Care Provider [phone] Reason for Visit * Reason Onset Date Comments Durable Medical Equipment 08/25/2024 Encounter Details Date Type Department Care Team ([facility] st Contact Info) Description 08/25/2024 Telephone [facility] MEDICINE 230 [place], [place] [phone] Jacy Aldridge MD [address] [place], [place] [phone] Durable Medical Equipment Social History Tobacco Use Types Packs/Day Years [...] Pests such as bugs, ants, or mice;Lead Wol[place] or Pipes 07/14/2024 Food Insecurity Answer Date [...] encounter Miscellaneous Notes * Telephone Encounter - Maria Del Carmen Espinal LPN - 08/30/2024 12:58 PM EDT Please review Pt request below and advise, provider DX will not be covered. Tc from [place] with [facility] requesting: - Shower Chair - Rollator Walker Reason: Back pain, leg swelling * Telephone Encounter - Tonya [place] - 08/25/2024 11:55 AM EDT Tc from [place] with [facility] requesting: - Shower Chair - Rollator Walker Reason: Back pain, leg swelling documented in this encounter Plan of Treatment Upcoming Encounters Date Type Department Care Team (Late st Contact Info) Description 12/20/2024 10:15 AM EDT Office Visit [facility] MED & PEDS 505 [place] [address] Asim Sloan MD 230 [place] [address] documented as of this encounter Visit Diagnoses Not on filedocumented in this encounter Additional Health Concerns Assessment Noted Time PHQ-9 Depression Total Score: 21 025 11:11 AM EDT documented as of this encounter Care Teams Tape Control Skin Or Spar Mill Operator Relationship Specialty Start Date End Date Jacy Aldridge MD [address] [place] [address] PCP - General Family Medicine 01/22/16 documented as of this encounter
--- OUTSIDE RECORDS SUMMARY | 2024-12-01 07:54 | XMS_ITS | Encounter Summary ---
Author Organization [employer] Address 75 [facility] 7t [place] [address] Care Team Providers Care Floatlight Powder Mixer Name Role Phone Jacy Aldridge MD Primary Care Provider [phone] Reason for Visit * Reason Onset Date Comments med request 06/07/2024 Encounter Details Date Type Department Care Team ([facility] st Contact Info) Description 06/07/[address] [facility] MEDICINE 230 [place], [place] [phone] Jacy Aldridge MD [address] [place], [place] [phone] med request Social History Tobacco Use Types [...] 10:17 AM EDT TC to pt using sales attendant services. Pt answered phone and stated she [...] 3:40 PM EDT TC to [facility]Care in [place] to obtain information if wrong medication was taken just now, or if historical event, and to see if pt is still experiencing symptoms. Spoke with bindery supervisor Rosalie who stated that Jayashree is not a nurse she is familiar with at all adult day health locations of [facility] and believes Jayashree is home care nurse and Rosalie stated will notify bindery supervisor of home care to reach out [...] bubble packs. If any questions please contact [phone] documented in this encounter Plan of Treatment Upcoming Encounters Date Type Department Care Team (Late st Contact Info) Description 12/20/2024 10:15 AM EDT Office Visit [facility] MED & PEDS 505 [place] [address] Asim Sloan MD 230 [place], [place] [phone] documented as of this encounter Visit Diagnoses Not on filedocumented in this encounter Additional Health Concerns Assessment Noted Time PHQ-9 Depression Total Score: 2 05/07/19 24 11:32 AM EST documented as of this encounter Care Teams Floatlight Powder Mixer Relationship Specialty Start Date End Date Jacy Aldridge MD 505 [place] [address] PCP - General Family Medicine 01/22/16 documented as of this encounter
--- OUTSIDE RECORDS SUMMARY | 2024-12-01 07:54 | XMS_ITS | Encounter Summary ---
Author Organization [employer] Address 75 [facility] 7t [place] [address] Care Team Providers Care Surveyor Geodetic Name Role Phone Jacy Aldridge MD Primary Care Provider [phone] Encounter Details Date Type Department Care Team ([facility] st Contact Info) Description 07/06/2024 Telephone [facility] [address] [place] [address] Jacy Aldridge MD 505 [place] [address] Social History Tobacco Use Types Packs/Day Years [...] 12:19 PM EDT Tc from Lacy at [facility] calling to report pt blood pressure at [place] office today was high. Lacyreported pt does not drink medication as she should. Lacy is requesting pt PCP to set up medication in bubble pack. If any questions contact Lacy at [phone] documented in this encounter Plan of Treatment Upcoming Encounters Date Type Department Care Team (Late st Contact Info) Description 12/20/2024 10:15 AM EDT Office Visit [facility] MED & PEDS 505 [place], [place] [phone] Asim Sloan MD [address] [place] [address] documented as of this encounter Visit Diagnoses Not on filedocumented in this encounter Additional Health Concerns Assessment Noted Time PHQ-9 Depression Total Score: 2 05/07/19 24 11:32 AM EST documented as of this encounter Care Teams Surveyor Geodetic Relationship Specialty Start Date End Date Jacy Aldridge MD [address] [place], [place] [phone] PCP - General Family Medicine 01/22/16 documented as of this encounter
--- OUTSIDE RECORDS SUMMARY | 2024-12-01 07:54 | XMS_ITS | Encounter Summary ---
Author Organization [employer] Address [address] [facility] [address] 7t [place] [address] Care Team Providers Care Manager Filter Name Role Phone Jacy Aldridge MD Primary Care Provider [phone] Reason for Visit * Reason Onset Date Comments ER Follow-up 02/25/2023 Encounter Details Date Type Department Care Team ([facility] st Contact Info) Description 02/25/2023 Telephone [facility] MEDICINE 230 [place] [address] Jacy Aldridge MD [address] [place], [place] [phone] ER Follow-up Social History Tobacco Use Types [...] 02/25/2023 10:46 AM EST Pt dischsrged from [facility] on 02/20/23 for NSTEMI. Returned call to pt SALESPERSON MEN'S FURNISHINGS and SALESPERSON MEN'S FURNISHINGS agrees to HDF appt with provider on 03/07/23. SALESPERSON MEN'S FURNISHINGS states besides minimal dizziness at times, pt denies any CP or other concerns. [employer]URNISH[employer] advised to call office if there are any further questions or concerns or return to ED if pt develops SOB or CP. * Telephone Encounter - Steve Gómez - 02/25/2023 10:15 AM EST Tc from patients [employer] calling to make appt please call Gena at [phone] Patient calling to report ED visit on : 02/25 Date: 02/18 Hospital: [facility] Seen for: Heart Attack Patient advised will forward to team nurse for follow up documented in this encounter Plan of Treatment Upcoming Encounters Date Type Department Care Team (Late st Contact Info) Description 12/20/2024 10:15 AM EDT Office Visit [facility] MED & PEDS 505 [place], [place] [phone] Asim Sloan MD [address] [place] [phone] documented as of this encounter Visit Diagnoses Not on filedocumented in this encounter Care Teams Manager Filter Relationship Specialty Start Date End Date Jacy Aldridge MD 505 [place] [address] PCP - General Family Medicine 01/22/16 documented as of this encounter
--- OUTSIDE RECORDS SUMMARY | 2024-12-01 07:54 | XMS_ITS | Encounter Summary ---
Author Organization [employer] Address 75 [facility] 7t [place] [address] Care Team Providers Care Frame Cleaner Name Role Phone Jacy Aldridge MD Primary Care Provider [phone] Reason for Visit * Reason Onset Date Comments Appointment Request 03/27/2022 Encounter Details Date Type Department Care Team ([facility] Contact Info) Description 03/27/2022 Telephone C [facility] 505 [place], [place] [phone] Jacy Aldridge MD 505 [place], [place] [phone] Appointment Request Social History Tobacco Use Types [...] Miscellaneous Notes * Telephone Encounter - Ran Sy Janine - 03/27/2022 12:13 PM EST Tc from [place]par[place] a case manger requesting an appt for patient for a Physical, Amparo states without the physical she cannot get some paperwork that she needs. Systems Programmer try to book appt but provider did not have anything open. If any question please contact amparo at [phone] documented in this encounter Plan of Treatment Upcoming Encounters Date Type Department Care Team (Late st Contact Info) Description 12/20/2024 10:15 AM EDT Office Visit [facility] MED & PEDS 505 [place] [address] Asim Sloan MD [address] [place] [address] documented as of this encounter Visit Diagnoses Not on filedocumented in this encounter Care Teams Frame Cleaner Relationship Specialty Start Date End Date Jacy Aldridge MD 505 [place] [address] PCP - General Family Medicine 01/22/16 documented as of this encounter
--- OUTSIDE RECORDS SUMMARY | 2024-12-01 07:54 | XMS_ITS | Clinical Summary ---
Author Organization [employer] Address [address] [facility] [address] [place] [address] Care Team Providers Care Personal Carer Name Role Phone Jacy Aldridge MD Primary Care Provider [phone] Allergies No known active allergies Medications * This document contains information received from the source organization and may not represent a complete record from that organization. naloxone (Narcan) 4 mg/0.1 mL nasal spray Administer 0.1 mL into affected nostril(s). 020 Active aspirin 81 MG EC tablet Take 1 tablet by mouth Once daily. 022 Active pantoprazole (ProtoNix) 40 MG EC tablet Take 1 tablet (40 mg) by mouth before breakfast. 30 tablet 1 023 Active Additional Information Patient not taking.Reported on 03/04/2023 Respiratory Therapy Supplies (Nebulizer/Tubin g/Mouthpiece) kit To be used with Nebulizer 1 kit 1 023 Active nicotine polacrilex (Nicorette) 2 MG gum CHEW 1 PEICE OF GUM BY MOUTH EVERY HOUR NEEDED FOR NICOTINE CRAVINGS 023 Active loratadine (Claritin) 10 MG tablet TAKE ONE TABLET EVERY MORNING 30 tablet 5 024 Active Mometasone Furoate (Asmanex, 60 Metered Doses,) 220 MCG/ACT aerosol powder Inhale 1 puff 2 times daily. 60 each 11 024 Active albuterol (2.5 MG/3ML) 0.083% nebulizer solution USE ONE AMPULE USING A NEBULIZER THREE TIMES DAILY NEEDED 90 mL 024 Active nicotine (Nicoderm CQ) 14 MG/24HR patch Place 1 patch on the skin 1 (one) time each day at the same time. 42 patch Active nicotine (Nicoderm CQ) 7 MG/24HR patch Place 1 patch on the skin 1 (one) time each day at the same time. 14 patch Active nicotine polacrilex (Commit) 2 MG lozenge Dissolve 1 lozenge (2 mg) in the mouth if needed for smoking cessation. 100 lozenge Active Blood Pressure kit 1 each 2 times daily. Call [facility] if BP readings are > 140/90 1 kit 025 2025 Active lisinopril 10 MG tablet Take 1 tablet by mouth Once per day. Active cholecalciferol (Vitamin D-3) 50 MCG (2000 UT) capsule Take 1 capsule orally daily 30 capsule 11 Active atorvastatin (Lipitor) 40 MG tablet Take 1 tablet (40 mg) by mouth Once per day. 30 tablet 11 025 2025 Active citalopram (CeleXA) 20 MG tablet Take 1 tablet (20 mg) by mouth Once per day. 30 tablet 5 Active Ventolin HFA 108 (90 Base) MCG/ACT inhaler INHALE TWO PUFFS EVERY 6 HOURS NEEDED FOR WHEEZING 18 g 2 Active cyanocobalamin (Vitamin B-12) 250 MCG tablet Take 1 tablet (250 mcg) by mouth Once per day. 90 tablet 3 025 2025 Active cholecalciferol (Vitamin D-3) 50 MCG (1999 UT) capsule Take 1 capsule (50 mcg) by mouth Once per day. 90 capsule 3 Active Buprenorphine HCl-Naloxone HCl (Suboxone) 8-2 MG SL filmIndications: Opioid dependence, uncomplicated (CMS/HCC) (HCC) Place 2 Film under the tongue Once per day for 28 days. Do not start before November 22, 2024. 56 Film 025 2024 Active Buprenorphine HCl-Naloxone HCl (Suboxone) 8-2 MG SL filmIndications: Opioid dependence, uncomplicated (CMS/HCC) (HCC) Place 2 Film under the tongue Once per day for 28 days. 56 Film 025 2024 Discontinued(R eorder (will not trigger notification to Pharmacy)) Hospital, Clinic, or Other Facility Administered Medication Ordered Dose Route Frequency Start Date End Date Status aspirin chewable tablet 324 mgIndications:Chest pain, unspecified type 324 mg PO Once 05/26/2024 Active Active Problems Problem Noted Date Diagnosed Date Elevated blood pressure read ing without diagnosis of hypertension 10/14/2024 Tobacco dependence 05/26/2024 NSTEMI (non-ST elevated myocardial infarction) 0 05/07/2023 Takotsubo cardiomyopathy 05/07/2023 Moderate recurrent major depression (CMS/HCC) Gastroesophageal reflux disease 08/29/2011 Vitamin D deficiency 08/29/2011 Continuous opioid dependence (CMS/HCC) 2 Acute hepatitis C 06/20/2011 Anxiety state 06/20/2011 Depressive disorder 06/20/2011 Pure hypercholesterolemia 06/20/2011 Encounters Date Type Department Care Team Description 11/22/2024 1:45 PM EDT Office Visit [facility] [address] [place] [address] Asim Sloan MD Opioid dependence, uncomplicated (CMS/HCC) (Primary Dx) 11/22/2024 Travel 11/15/2024 Refill [facility] [address] [place] [phone] Supriya Esparza, RODOLFO Opioid dependence, uncomplicated (CMS/HCC) 10/25/2024 1:00 PM EDT Office Visit [facility] [address] [place] [address] Asim Sloan MD Opioid dependence with uncomplicated intoxication (CMS/HCC) (Primary Dx); Opioid dependence, uncomplicated (CMS/HCC) 10/25/2024 Travel 10/20/2024 Telephone [facility] [address] [place] [address] Supriya Esparza, RODOLFO 10/14/2024 10:15 AM EDT Office Visit [facility] [address] [place] [address] Jacy Aldridge MD Vitamin D deficiency (Primary Dx); Pure hypercholesterolemia; Continuous opioid dependence (CMS/HCC); Takotsubo cardiomyopathy 10/14/2024 Patient Outreach [facility] [address] [place] [address] Jacy Aldridge MD Care Coordination (CHW outreach for SDOH housing search-referral completed ) 10/14/2024 Travel 09/27/2024 9:45 AM EDT Office Visit [facility] [address] [place] [address] Asim Sloan MD Opioid type dependence, continuous ([facility]/HCC) (Primary Dx) 09/27/2024 Travel 09/20/2024 Telephone [facility] [address] [place] [address] Jacy Aldridge MD 09/13/2024 Refill [facility] [address] [place], [place] [phone] Supriya Esparza RN Opioid dependence, uncomplicated ([facility]/HCC) from Last 3 Months Immunizations Immunization Administration [...] Sign Reading Time Taken Comments Blood Pressure 150/80 10/14/2024 10:05 AM EDT Pulse 76 10/14/2024 10:05 AM EDT Temperature 36.5 C (97.7 F) 10/14/2024 10:05 AM EDT Respiratory Rate 16 10/14/2024 10:05 AM EDT Oxygen Saturation 98% 07/14/2024 10:36 AM EDT Inhaled Oxygen Concentration - - Weight 52.6 kg (116 lb) 10/14/2024 10:05 AM EDT Height 160 cm (5' 3 ) 07/14/2024 10:36 AM EDT Body Mass Index 20.55 07/14/2024 10:36 AM EDT Plan of Treatment Upcoming Encounters Date Type Department Care Team (Late st Contact Info) Description 12/20/2024 10:15 AM EDT Office Visit [facility] [address] [place] [address] Asim Sloan MD [address] [place] [address] Health Maintenance Due Date Last Done Comments CT Colonography 1955 Colonoscopy 1955 Colorectal Cancer Screening 1955 FIT DNA/Cologuard 1955 FIT 1955 FOBT 1955 Sigmoidoscopy 1955 Hepatitis A Vaccines (1 of 2 - Risk 2-dose series) 1976 Hepatitis B Vaccines (1 of 3 - Risk 3-dose series) 2017 Zoster Vaccines (2 of 2) 04/01/2018 02/04/2018, 01/01 COVID-19 Vaccine ( season) 2024 07/16/2022, 01/05/2022, 08/10/2020, Additional history exists Influenza Vaccine (#1) 2024 , 12/03/2021, 01/22/2019, Additional history exists Depression Monitoring 01/14/2025 07/14/2024, 025 Mammogram 09/02/2025 09/03/2023, 08/2022, 08/26/2022, Additional history exists Alcohol/Substance Use Screening 10/14/2025 10/14/2024 SDOH Screening 10/14/2025 10/14/2024 Tobacco Screening 10/14/2025 10/14/2024 DTaP/Tdap/Td Vaccines (2 - Td or Tdap) 10/11/2027 10/10/2017, 10/10/2006 Lipid Panel 07/14/2029 07/14/2024, 050 08/2023, 12/26/2022, Additional history exists Pneumococcal Vaccine: 50+ Years [...] Comments POCT JAMES-14 URINE DRUG SCREEN Routine 11/22/2024 1:37 PM EDT Opioid dependence, uncomplicated (CMS/HCC) POCT JAMES-14 URINE DRUG SCREEN Routine 09/27/2024 8:55 AM EDT Opioid type dependence, continuous (CMS/HCC) LIPID PANEL, STANDARD Routine 07/14/2024 11:17 AM EDT Takotsubo cardiomyopathy Continuous opioid dependence (CMS/HCC) Pure hypercholesterolemia Screening for colon cancer Routine general medical examination at a [facility] care facility BI MAMMOGRAM SCREENING TOMOSYNTHESIS BILATERAL Routine 09/03/2023 12:05 PM EDT from Last 3 Months or Most Recently Relevant to Health Maintenance Results * (ABNORMAL) POCT JAMES-14 Urine Drug Screen (11/22/2024 1:37 PM EDT) Only the most recent of2 resultswithin the time period is included. THC Positive(A) Negative Cocaine Screen, Urine Negative Negative Opiate Screen, Urine Negative Negative Methamphetamine Screen Urine Negative Negative Amphetamine Screen, Urine Negative Negative Benzodiazepines Screen, Urine Negative Negative Barbiturate Screen, Urine Negative Negative Methadone Screen, Urine Negative Negative Buprenophine Screen, Urine Positive(A) Negative TCA, Urine Negative Negative MDMA Urine Negative Negative ng/mL Oxycodone Screen, Urine Negative Negative Phencyclidine (PCP), Urine Negative Negative Fentanyl, Urine Negative Negative Urine Urine specimen obtained by clean catch procedure / Unknown 11/22/2024 1:37 PM EDT Asim Sloan MD POINT OF CARE TEST ENTER/EDIT OR DERABLES Final Result * Lipid Panel, Standard (07/14/2024 11:17 AM EDT) Triglycerides 89 <150 mg/dL [facility] Comment:Desirable Triglyceri de: less than 150 mg/dLBorderline High Triglyceride 150-199 mg/dLHigh Triglyceride: 200-499 mg/dLVery High Triglyceride: greater than or equal to 5OO mg/dL Cholesterol 157 <200 mg/dL [facility] Comment:Desirable Cholestero l: less than 200 mg/dLBorderline High Cholesterol: 200-239 mg/dLHigh Cholesterol: greater than 239 mg/dL LDL Cholesterol Calculated 82 <100 mg/dL [facility] Comment:Desirable LDL: less than 100 mg/dLNear Optimal/Above Optimal LDL: 110- 129 mg/dLBorderline High LDL: 130-159 mg/dLHigh LDL: 160-189 mg/dLVery High LDL: greater than or equal to 190 mg/dL HDL Cholesterol 58 >40 mg/dL [facility] Comment:Desirable HDL: great er than 40 mg/dL Note: This HDL assay may give artificially low results in patients with liver disease. Blood Venous blood specimen / Unknown 07/14/2024 11:17 AM EDT 07/14/2024 2:49 PM EDT us Jacy Aldridge MD LAB BLOOD ORDERABLES Final Re sult [facility] [address] [place], [place] [phone] * BI Mammogram Screening Tomosynthesis Bilateral (09/03/2023 12:05 PM EDT) Anatomical Region Laterality Modality Breast Bilateral Mammography 09/03/2023 12:0 5 PM EDT Narrative 09/23/2023 9:55 PM EDT [facility] [address] [place] [address] Mammography Report Signed Patient: Cinthya Tay MR#: [id number] : 1955 Acct:[id number] Age/Sex: 68 / F ADM Date: 09/03/23 Loc: HO.MAMMO Attending Dr: Jacy Aldridge MD Ordering Physician: Jacy Aldridge MD Results: 1Ne gative Date of Service: 09/03/23 Follow Up: 1 Year From Orig inal Mammogram Procedure(s): MM tomosynthesis screening BI Accession Number(s): [id number] cc: Jacy Aldridge MD EXAMINATION: MM SCREENING [...] in OV> 09/23/23 2151 DD/ 1205 TD/TT: Plate Painter Apprentice: Procedure Note Donotuseinterpreter, Image - 09/23/2023 [facility] [address] [place] [address] Mammography Report Signed Patient: Dereck TaysMR#: [id number] : 1955cct:[id number] Age/Sex: 68 / FADM Date: 09/03/23 Loc: HO.MAMMO Attending Dr: Jacy Aldridge MD Ordering Physician: Jacy Aldridge MDResults: 1Ne gatdenise Date of Service: 09/03/23Follow Up: 1 Year From [facility] ina Mammogram Procedure(s): MM tomosynthesis screening BI Accession Number(s): [id number] cc: Jacy Aldridge MD EXAMINATION: MM SCREENING [...] in OV> 09/23/23 2151 DD/ 1205 TD/TT: Plate Painter Apprentice: us Jacy Aldridge MD IMG BI PROCEDURES Final Resul t from Last 3 Months or Most Recently Relevant to Health Maintenance Insurance [facility] [employer]M OPT[employer] (O D-SNP) [facility] STANDARD Care Teams Personal Carer Relationship Specialty Start Date End Date Jacy Aldridge MD [address] [facility] [place] [address] PCP - General Family Medicine 01/22/16
--- OUTSIDE RECORDS SUMMARY | 2024-12-01 07:54 | XMS_ITS | Encounter Summary ---
Author Organization [employer] Address [address] [facility] [address] [place] [address] Care Team Providers Care Pitch Filler Name Role Phone Jacy Aldridge MD Primary Care Provider [phone] Reason for Visit * Reason Onset Date Comments FYI 09/16/2023 Encounter Details Date Type Department Care Team ([facility] st Contact Info) Description 09/16/2023 Telephone [facility] [address] [place], [place] [phone] Jacy Aldridge MD [address] [place], [place] [phone] FYI Social History Tobacco Use Types Packs/Day [...] questions for Rosalie please contact her at [phone] ext [phone]. documented in this encounter Plan of Treatment Upcoming Encounters Date Type Department Care Team (Late st Contact Info) Description 12/20/2024 10:15 AM EDT Office Visit [facility] [address] [place] [address] Asim Sloan MD [address] [place] [phone] documented as of this encounter Visit Diagnoses Not on filedocumented in this encounter Additional Health Concerns Assessment Noted Time PHQ-9 Depression Total Score: 2 05/07/19 24 11:32 AM EST documented as of this encounter Care Teams Pitch Filler Relationship Specialty Start Date End Date Jacy Aldridge MD [address] [place] [address] PCP - General Family Medicine 01/22/16 documented as of this encounter
== END 2024-12-01 07:49 | disposition home or self-care (01) ==
LOC: HO.MAMMO 07:48
PROVIDERS: PCP Pediatrics; Visit Provider Pediatrics
DX: Z12.31 Encounter for screening mammogram for malignant neoplasm of breast (principal); Z13.820 Encounter for screening for osteoporosis; M85.89 Other specified disorders of bone density and structure, multiple sites
CPT/HCPCS: 77063; 77067; 77080

== ENCOUNTER → 2024-12-01 08:15 | Outpatient (BNV) | payer OTHER, SELFPAY | PROVIDERS: PCP Pediatrics; Visit Provider Radiology Diagnostic Radiology | DX: E28.39 Other primary ovarian failure (principal) | CPT/HCPCS: 77080 ==